=== PATIENT | female | born 1965 | race Caucasian/White ===

== ENCOUNTER 2017-06-01 15:55 | Emergency (ER) | payer MEDICAID, SELFPAY ==
[~2017-06-01] VITALS: Ht 160 cm; Wt 97.7 kg
[~2017-06-01 15:55] MED LIST: /ADVA50050 IN; /QUET10TA OR; ABIL15TA OR; BABY81CH OR; CELE20TA OR; CRES20TA OR; FERR325T OR; FISH300C2 OR; MULTIVIT PO; TRAZ150T OR; VITA50TA12 OR; lutein PO
[2017-06-01] MEDS ORDERED: BUSP5TA PO (16:08)
[2017-06-01] MEDS ORDERED: TRAZ1TAB14 PO (16:08)
[2017-06-01] MEDS ORDERED: RISP4TAB33 PO (16:08)
[2017-06-01] MEDS ORDERED: PRAZ1CAP PO (16:08)
[2017-06-01] MEDS ORDERED: LAMI25TA PO (16:08)
[2017-06-01] MEDS ORDERED: ZOLO100T PO (16:08)
[2017-06-01 16:26] LABS: MEAN CORPUSCULAR HEMOGLOBIN 27.8 pg (27.0-33.0); MEAN CORPUSCULAR HGB CONC 33.5 g/dl (32.0-36.5); MEAN CORPUSCULAR VOLUME 83.1 fl (80.0-96.0); RED CELL DISTRIBUTION WIDTH 13.9 % (11.5-14.5); WHITE BLOOD COUNT 7.4 K/mm3 (4.0-10.0)
[2017-06-01 16:54] LABS: ALBUMIN/GLOBULIN RATIO 1.25 (1.00-1.93); ALKALINE PHOSPHATASE 58 U/L (45-117); ALT/SGPT 22 U/L (12-78); ANION GAP 9 MEQ/L (8-16); AST/SGOT 11 U/L (15-37); BILIRUBIN,DIRECT < 0.1 MG/DL (0.0-0.2); BILIRUBIN,TOTAL 0.2 MG/DL (0.2-1.0); BLOOD UREA NITROGEN 16 MG/DL (7-18); CALCIUM LEVEL 8.9 MG/DL (8.5-10.1); CARBON DIOXIDE LEVEL 26 MEQ/L (21-32); CHLORIDE LEVEL 104 MEQ/L (98-107); CREATININE FOR GFR 0.67 MG/DL (0.55-1.02); GLOMERULAR FILTRATION RATE > 60.0 (>51); GLUCOSE, FASTING 88 MG/DL (70-105); POTASSIUM SERUM 4.1 MEQ/L (3.5-5.1); SODIUM LEVEL 139 MEQ/L (136-145); TOTAL PROTEIN 7.2 GM/DL (6.4-8.2)
[2017-06-01] MEDS ORDERED: risperiDONE 2 MG TAB PO ONE (20:30)
[2017-06-01] MEDS ORDERED: traZODone 50 MG TAB PO ONE (20:30)
[2017-06-01 20:39] LABS: METHADONE URINE NEGATIVE (NEGATIVE)
[2017-06-01 21:47] VITALS: BP 118/63
--- NOTE | 2017-06-02 23:52 | ECGEPIP ---
Stationary ECG Study [facility] Test Date: 2017-06-01 Pat Name: VINNY DUNCAN Department: Room: - Gender: F Pumper Hand: : 1965 Requested By: GRIS Mejía Order Number: [id number] Reading MD: Topher Ortiz Measurements Intervals [place] Rate: 72 P: 41 NV: 136 QRS: 26 QRSD: 86 T: 21 QT: 405 QTc: 443 Interpretive Statements SINUS RHYTHM WITH SINUS ARRHYTHMIA LOW QRS VOLTAGE IN PRECORDIAL LEADS NON-SPECIFIC ST/T ABNORMALITY NO PRIOR TRACING Electronically Signed On 06-02-2017 23:52:35 EDT by Topher Ortiz
== END 2017-06-01 21:50 | disposition short-term general hospital (02) ==
LOC: M ED 15:55
DX: R45.851 Suicidal ideations (principal); I25.2 Old myocardial infarction; E11.9 Type 2 diabetes mellitus without complications; R94.31 Abnormal electrocardiogram [ECG] [EKG]; J42 Unspecified chronic bronchitis; Z79.82 Long term (current) use of aspirin; Z79.899 Other long term (current) drug therapy; Z88.6 Allergy status to analgesic agent; Z88.8 Allergy status to other drugs, medicaments and biological substances
CPT/HCPCS: 80048; 80076; 80175; 80307; 81001; 84443; 85027; 93005; 99284; G0480

== ENCOUNTER 2017-06-17 15:59 | Inpatient (IN) | payer MEDICAID, SELFPAY ==
[~2017-06-17] VITALS: Ht 160 cm; Wt 94.4 kg
[~2017-06-17 15:59] MED LIST changes: +BUSP5TA PO; +LAMI25TA PO; +PRAZ1CAP PO; +RISP4TAB33 PO; +TRAZ1TAB14 PO; +ZOLO100T PO
[2017-06-17 17:19] LABS: MEAN CORPUSCULAR HEMOGLOBIN 27.8 pg (27.0-33.0); MEAN CORPUSCULAR VOLUME 81.8 fl (80.0-96.0); RED CELL DISTRIBUTION WIDTH 13.1 % (11.5-14.5)
[2017-06-17 17:35] LABS: CONTROL LINE HCG INT CTR LINE PRESENT
[2017-06-17 17:54] LABS: ALBUMIN/GLOBULIN RATIO 1.08 (1.00-1.93); ALKALINE PHOSPHATASE 64 U/L (45-117); ALT/SGPT 17 U/L (12-78); ANION GAP 10 MEQ/L (8-16); AST/SGOT 9 U/L (15-37); BILIRUBIN,DIRECT 0.1 MG/DL (0.0-0.2); BILIRUBIN,TOTAL 0.3 MG/DL (0.2-1.0); BLOOD UREA NITROGEN 13 MG/DL (7-18); CARBON DIOXIDE LEVEL 26 MEQ/L (21-32); CHLORIDE LEVEL 105 MEQ/L (98-107); CREATININE FOR GFR 0.74 MG/DL (0.55-1.02); GLOMERULAR FILTRATION RATE > 60.0 (>51); GLUCOSE, FASTING 95 MG/DL (70-105); SODIUM LEVEL 141 MEQ/L (136-145); TOTAL PROTEIN 7.7 GM/DL (6.4-8.2)
[2017-06-17 19:39] LABS: METHADONE URINE NEGATIVE (NEGATIVE)
[2017-06-17] MEDS ORDERED: MOM 30ML SUSPENSION UDC PO PRN (20:30)
[2017-06-17] MEDS ORDERED: traZODone 50 MG TAB PO PRN (20:30)
[2017-06-17] MEDS ORDERED: BUSP10TA PO (20:43)
[2017-06-17] MEDS ORDERED: GABA-279 PO (20:44)
[2017-06-17] MEDS ORDERED: ALBU17IN INH (20:44)
[2017-06-17] MEDS ORDERED: PATIENT COMMENT (20:45)
[2017-06-17 23:10] VITALS: BP 134/71
[2017-06-17] MEDS: MAALOX 30 ML SUSP *UDC PO PRN (23:52)
[2017-06-18] MEDS: traZODone 50 MG TAB PO PRN ×2 (00:38→22:54)
[2017-06-18] MEDS: risperiDONE 2 MG TAB PO SCH ×2 (00:40→21:53)
[2017-06-18] MEDS: busPIRone 10 MG TAB PO SCH ×4 (00:40→21:53)
[2017-06-18] MEDS: GABAPENTIN 100 MG CAP PO SCH ×4 (00:41→21:53)
[2017-06-18] MEDS: SERTRALINE HCL 50 MG TAB PO SCH ×2 (00:42→21:53)
[2017-06-18] MEDS: PRAZOSIN 1 MG CAP PO SCH ×2 (00:42→21:54)
[2017-06-18 06:53] VITALS: BP 134/71
[2017-06-18] MEDS: lamoTRIgine 25 MG TAB PO SCH (08:58)
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
[2017-06-18] MEDS: ASPIRIN 81 MG CHEW TABLET PO SCH (09:30)
[2017-06-18 10:08] LABS: ADD MORPHOLOGY? NO; BASO % 0.6 % (0.0-1.0); EOS # 0.1 K/mm3 (0.0-0.50); EOS % 2.1 % (0.0-3.0); LARGE UNSTAINED CELL # 0.1 K/mm3 (0.0-0.4); LARGE UNSTAINED CELL % 1.4 % (0.0-4.0); LYMPH # 1.5 K/mm3 (1.5-4.5); LYMPH % 29.7 % (24.0-44.0); MEAN CORPUSCULAR HEMOGLOBIN 27.6 pg (27.0-33.0); MEAN CORPUSCULAR HGB CONC 34.2 g/dl (32.0-36.5); MEAN CORPUSCULAR VOLUME 80.6 fl (80.0-96.0); MONO # 0.2 K/mm3 (0.0-0.8); MONO % 4.2 % (0.0-5.0); NEUTROPHILS # 2.9 K/mm3 (1.8-7.7); NEUTROPHILS % 62.1 % (36.0-66.0); PLATELET COUNT, AUTOMATED 350 k/mm3 (150-450); RED CELL DISTRIBUTION WIDTH 13.5 % (11.5-14.5); WHITE BLOOD COUNT 4.7 K/mm3 (4.0-10.0)
[2017-06-18 10:35] LABS: ALBUMIN 3.9 GM/DL (3.2-5.2); ALBUMIN/GLOBULIN RATIO 1.11 (1.00-1.93); ALKALINE PHOSPHATASE 68 U/L (45-117); ALT/SGPT 18 U/L (12-78); ANION GAP 11 MEQ/L (8-16); AST/SGOT 6 U/L (15-37); BILIRUBIN,TOTAL 0.4 MG/DL (0.2-1.0); BLOOD UREA NITROGEN 12 MG/DL (7-18); CALCIUM LEVEL 9.1 MG/DL (8.5-10.1); CARBON DIOXIDE LEVEL 24 MEQ/L (21-32); CHLORIDE LEVEL 105 MEQ/L (98-107); CREATININE FOR GFR 0.85 MG/DL (0.55-1.02); GLOMERULAR FILTRATION RATE > 60.0 (>51); GLUCOSE, FASTING 165 MG/DL (70-105); POTASSIUM SERUM 3.9 MEQ/L (3.5-5.1); SODIUM LEVEL 140 MEQ/L (136-145); TOTAL PROTEIN 7.4 GM/DL (6.4-8.2)
--- NOTE | 2017-06-18 10:55 | REP ---
CT abdomen and pelvis without IV or oral contrast: Renal stone protocol. History: Abdominal pain. No comparison imaging. Findings: Preliminary digital child care assistant radiograph shows an unremarkable bowel gas pattern. The lung bases are essentially clear. There is minimal linear fibrosis in the right middle lobe. The liver and the spleen are normal in size and homogeneous in texture. No abnormalities noted in the gallbladder. No adrenal lesion is seen on either side. The pancreas is unremarkable. There is a cyst projecting inferiorly from the lower pole of the left kidney measuring 2.5 cm in greatest diameter. Kidneys are otherwise morphologically intact. No retroperitoneal mass or adenopathy is seen. Small and large intestinal bowel loops are unremarkable. The urinary bladder is intact. Uterus is enlarged. There is a fibroid in its posterior myometrium approximately 6.3 cm in anteroposterior by 7.4 cm medial to lateral by 6.7 cm cranial to caudal. The bladder is displaced anteriorly by the enlarged fibroid uterus. No ovarian abnormality is seen on either side. A normal appendix is seen. Impression: 7 cm uterine fibroid. Small cyst lower pole left kidney. Otherwise unremarkable CT abdomen and pelvis. Signed by Kal Hill MD 06/18/2017 12:15 P
[2017-06-18] MEDS: ALBUTEROL 90 MCG/ACT 8GM HFA INHALER INH PRN (11:24)
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
[2017-06-18 18:07] VITALS: BP 108/54
[2017-06-19 07:04] LABS: CHOLESTEROL LEVEL 324 MG/DL (<200); TRIGLYCERIDES LEVEL 268 MG/DL (<150)
[2017-06-19] MEDS: busPIRone 10 MG TAB PO SCH ×3 (09:14→21:53)
[2017-06-19] MEDS: lamoTRIgine 25 MG TAB PO SCH (09:14)
[2017-06-19] MEDS: ASPIRIN 81 MG CHEW TABLET PO SCH (09:14)
[2017-06-19] MEDS: GABAPENTIN 100 MG CAP PO SCH ×3 (09:14→21:53)
[2017-06-19] MEDS: ATORVASTATIN 20 MG TAB PO SCH (12:14)
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
[2017-06-19 18:00] VITALS: BP 139/65
[2017-06-19] MEDS: ALBUTEROL 90 MCG/ACT 8GM HFA INHALER INH PRN (19:55)
[2017-06-19] MEDS: ACETAMINOPHEN TAB 650MG DOSE (2X325MG) PO PRN (19:57)
[2017-06-19] MEDS: risperiDONE 2 MG TAB PO SCH (21:52)
[2017-06-19] MEDS: SERTRALINE HCL 50 MG TAB PO SCH (21:53)
[2017-06-19] MEDS: PRAZOSIN 1 MG CAP PO SCH (21:53)
[2017-06-19] MEDS: traZODone 50 MG TAB PO PRN (21:54)
[2017-06-20 06:38] VITALS: BP 131/55
[2017-06-20] MEDS: ASPIRIN 81 MG CHEW TABLET PO SCH (08:29)
[2017-06-20] MEDS: GABAPENTIN 100 MG CAP PO SCH ×3 (08:29→21:05)
[2017-06-20] MEDS: lamoTRIgine 25 MG TAB PO SCH (08:29)
[2017-06-20] MEDS: ATORVASTATIN 20 MG TAB PO SCH (08:29)
[2017-06-20] MEDS: busPIRone 10 MG TAB PO SCH (09:12)
[2017-06-20] MEDS: ALBUTEROL 90 MCG/ACT 8GM HFA INHALER INH PRN (12:04)
[2017-06-20] MEDS: MAALOX 30 ML SUSP *UDC PO PRN (12:36)
[2017-06-20 13:40] LABS: MEAN CORPUSCULAR HGB CONC 34.3 g/dl (32.0-36.5); MEAN CORPUSCULAR VOLUME 81.6 fl (80.0-96.0); RED CELL DISTRIBUTION WIDTH 13.3 % (11.5-14.5)
[2017-06-20 14:05] LABS: ALBUMIN 3.5 GM/DL (3.2-5.2); ALBUMIN/GLOBULIN RATIO 1.09 (1.00-1.93); ALKALINE PHOSPHATASE 67 U/L (45-117); ALT/SGPT 20 U/L (12-78); ANION GAP 7 MEQ/L (8-16); AST/SGOT 9 U/L (15-37); BILIRUBIN,TOTAL 0.2 MG/DL (0.2-1.0); BLOOD UREA NITROGEN 16 MG/DL (7-18); CALCIUM LEVEL 8.5 MG/DL (8.5-10.1); CARBON DIOXIDE LEVEL 29 MEQ/L (21-32); CHLORIDE LEVEL 104 MEQ/L (98-107); CREATININE FOR GFR 0.67 MG/DL (0.55-1.02); GLOMERULAR FILTRATION RATE > 60.0 (>51); GLUCOSE, FASTING 129 MG/DL (70-105); POTASSIUM SERUM 4.2 MEQ/L (3.5-5.1); SODIUM LEVEL 140 MEQ/L (136-145); TOTAL PROTEIN 6.7 GM/DL (6.4-8.2)
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
[2017-06-20] MEDS: ACETAMINOPHEN TAB 650MG DOSE (2X325MG) PO PRN (14:35)
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
[2017-06-20] MEDS: busPIRone 5 MG TAB PO SCH ×2 (16:00→21:05)
[2017-06-20 18:00] VITALS: BP 157/61
--- NOTE | 2017-06-20 20:58 | ECGEPIP ---
Stationary ECG Study [facility] Test Date: 2017-06-20 Pat Name: VINNY DUNCAN Department: Room: [place] [address] Gender: F [employer] Operator: BOY : 1965 Requested By: Keysha Good Order Number: [id number] Reading MD: Matthew Mccollum Measurements Intervals [place] Rate: 70 P: 48 MS: 132 QRS: 16 QRSD: 81 T: 13 QT: 398 QTc: 431 Interpretive Statements SINUS RHYTHM WITH SINUS ARRHYTHMIA Poor R-wave progression. Nonspecific ST-T abnormalities. Electronically Signed On 06-20-2017 20:58:32 EDT by Matthew Mccollum
[2017-06-20] MEDS: SERTRALINE HCL 50 MG TAB PO SCH (21:05)
[2017-06-20] MEDS: risperiDONE 2 MG TAB PO SCH (21:05)
[2017-06-20] MEDS: traZODone 50 MG TAB PO PRN (21:06)
[2017-06-20] MEDS: PRAZOSIN 1 MG CAP PO SCH (21:06)
[2017-06-21 06:24] VITALS: BP 118/77
[2017-06-21] MEDS: GABAPENTIN 100 MG CAP PO SCH ×3 (08:16→22:28)
[2017-06-21] MEDS: busPIRone 5 MG TAB PO SCH ×3 (08:16→22:30)
[2017-06-21] MEDS: ASPIRIN 81 MG CHEW TABLET PO SCH (08:16)
[2017-06-21] MEDS: ATORVASTATIN 20 MG TAB PO SCH (08:16)
[2017-06-21] MEDS: lamoTRIgine 25 MG TAB PO SCH (08:16)
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
[2017-06-21 18:00] VITALS: BP 108/54
[2017-06-21] MEDS: ACETAMINOPHEN TAB 650MG DOSE (2X325MG) PO PRN (22:27)
[2017-06-21] MEDS: risperiDONE 2 MG TAB PO SCH (22:27)
[2017-06-21] MEDS: traZODone 50 MG TAB PO PRN (22:27)
[2017-06-21] MEDS: SERTRALINE HCL 50 MG TAB PO SCH (22:27)
[2017-06-21] MEDS: PRAZOSIN 1 MG CAP PO SCH (22:28)
[2017-06-22] MEDS: GABAPENTIN 100 MG CAP PO SCH ×3 (09:22→22:20)
[2017-06-22] MEDS: busPIRone 5 MG TAB PO SCH ×3 (09:22→22:20)
[2017-06-22] MEDS: lamoTRIgine 25 MG TAB PO SCH (09:22)
[2017-06-22] MEDS: ATORVASTATIN 20 MG TAB PO SCH (09:22)
[2017-06-22] MEDS: ASPIRIN 81 MG CHEW TABLET PO SCH (09:22)
[2017-06-22] MEDS: MAALOX 30 ML SUSP *UDC PO PRN (13:09)
[2017-06-22] MEDS: ALBUTEROL 90 MCG/ACT 8GM HFA INHALER INH PRN (13:10)
[2017-06-22 18:00] VITALS: BP 117/60
[2017-06-22] MEDS: risperiDONE 2 MG TAB PO SCH (22:19)
[2017-06-22] MEDS: SERTRALINE HCL 50 MG TAB PO SCH (22:20)
[2017-06-22] MEDS: PRAZOSIN 1 MG CAP PO SCH (22:20)
[2017-06-22] MEDS: traZODone 50 MG TAB PO PRN (22:20)
[2017-06-22] MEDS: ACETAMINOPHEN TAB 650MG DOSE (2X325MG) PO PRN (22:21)
[2017-06-23 06:25] VITALS: BP 99/54
[2017-06-23] MEDS: ASPIRIN 81 MG CHEW TABLET PO SCH (08:57)
[2017-06-23] MEDS: busPIRone 5 MG TAB PO SCH ×3 (08:57→22:15)
[2017-06-23] MEDS: GABAPENTIN 100 MG CAP PO SCH ×3 (08:57→22:15)
[2017-06-23] MEDS: lamoTRIgine 25 MG TAB PO SCH (08:57)
[2017-06-23] MEDS: ATORVASTATIN 20 MG TAB PO SCH (08:57)
[2017-06-23 18:00] VITALS: BP 135/73
[2017-06-23] MEDS: risperiDONE 2 MG TAB PO SCH (22:15)
[2017-06-23] MEDS: PRAZOSIN 1 MG CAP PO SCH (22:16)
[2017-06-23] MEDS: traZODone 50 MG TAB PO PRN (22:16)
[2017-06-23] MEDS: SERTRALINE HCL 50 MG TAB PO SCH (22:16)
[2017-06-24 06:55] VITALS: BP 143/55
[2017-06-24] MEDS: lamoTRIgine 25 MG TAB PO SCH (08:09)
[2017-06-24] MEDS: busPIRone 5 MG TAB PO SCH ×3 (08:10→21:38)
[2017-06-24] MEDS: ASPIRIN 81 MG CHEW TABLET PO SCH (08:10)
[2017-06-24] MEDS: GABAPENTIN 100 MG CAP PO SCH ×3 (08:10→21:38)
[2017-06-24] MEDS: ATORVASTATIN 20 MG TAB PO SCH (08:10)
[2017-06-24] MEDS: ALBUTEROL 90 MCG/ACT 8GM HFA INHALER INH PRN ×2 (10:53→19:02)
[2017-06-24 18:00] VITALS: BP 125/74
[2017-06-24] MEDS ORDERED: PANTOPRAZOLE 20 MG TAB PO ONE (18:30)
[2017-06-24] MEDS: ACETAMINOPHEN TAB 650MG DOSE (2X325MG) PO PRN (19:01)
[2017-06-24] MEDS: traZODone 50 MG TAB PO PRN (21:34)
[2017-06-24] MEDS: PRAZOSIN 1 MG CAP PO SCH (21:36)
[2017-06-24] MEDS: SERTRALINE HCL 50 MG TAB PO SCH (21:37)
[2017-06-24] MEDS: risperiDONE 2 MG TAB PO SCH (21:38)
[2017-06-25 06:16] VITALS: BP 119/70
[2017-06-25] MEDS: GABAPENTIN 100 MG CAP PO SCH ×3 (09:23→21:13)
[2017-06-25] MEDS: ASPIRIN 81 MG CHEW TABLET PO SCH (09:23)
[2017-06-25] MEDS: busPIRone 5 MG TAB PO SCH ×3 (09:23→21:12)
[2017-06-25] MEDS: ATORVASTATIN 20 MG TAB PO SCH (09:23)
[2017-06-25] MEDS: lamoTRIgine 25 MG TAB PO SCH (09:23)
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
[2017-06-25] MEDS: risperiDONE 1 MG TAB PO SCH ×2 (17:35→21:12)
[2017-06-25 18:00] VITALS: BP 128/72
[2017-06-25] MEDS ORDERED: risperiDONE 1 MG TAB PO SCH (21:00)
[2017-06-25] MEDS: traZODone 50 MG TAB PO PRN (21:12)
[2017-06-25] MEDS: SERTRALINE 100 MG TAB PO SCH (21:13)
[2017-06-25] MEDS: ACETAMINOPHEN TAB 650MG DOSE (2X325MG) PO PRN (21:13)
[2017-06-25] MEDS: PRAZOSIN 1 MG CAP PO SCH (21:14)
--- NOTE | 2017-06-25 21:27 | ECGEPIP ---
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
[2017-06-26 06:47] VITALS: BP 129/63
[2017-06-26] MEDS: ASPIRIN 81 MG CHEW TABLET PO SCH (08:43)
[2017-06-26] MEDS: risperiDONE 1 MG TAB PO SCH ×3 (08:43→21:38)
[2017-06-26] MEDS: GABAPENTIN 100 MG CAP PO SCH ×3 (08:44→21:37)
[2017-06-26] MEDS: lamoTRIgine 25 MG TAB PO SCH (08:44)
[2017-06-26] MEDS: ATORVASTATIN 20 MG TAB PO SCH (08:44)
[2017-06-26] MEDS: busPIRone 5 MG TAB PO SCH ×3 (08:44→21:38)
[2017-06-26] MEDS: ACETAMINOPHEN TAB 650MG DOSE (2X325MG) PO PRN ×2 (16:22→21:38)
[2017-06-26 18:00] VITALS: BP 119/59
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
[2017-06-26] MEDS: ALBUTEROL 90 MCG/ACT 8GM HFA INHALER INH PRN (19:11)
[2017-06-26 21:38] VITALS: BP 142/88
[2017-06-26] MEDS: SERTRALINE 100 MG TAB PO SCH (21:38)
[2017-06-26] MEDS: PRAZOSIN 1 MG CAP PO SCH (21:38)
[2017-06-26] MEDS: traZODone 50 MG TAB PO PRN (21:38)
[2017-06-27 06:50] VITALS: BP 101/54
[2017-06-27] MEDS: risperiDONE 1 MG TAB PO SCH (08:42)
[2017-06-27] MEDS: ASPIRIN 81 MG CHEW TABLET PO SCH (08:42)
[2017-06-27] MEDS: busPIRone 5 MG TAB PO SCH (08:42)
[2017-06-27] MEDS: lamoTRIgine 25 MG TAB PO SCH (08:42)
[2017-06-27] MEDS: ATORVASTATIN 20 MG TAB PO SCH (08:42)
[2017-06-27] MEDS: GABAPENTIN 100 MG CAP PO SCH (08:42)
[2017-06-27] MEDS ORDERED: METF10004 PO (10:09)
[2017-06-27] MEDS ORDERED: ATOR1TAB21 PO (10:09)
[2017-06-27] MEDS ORDERED: BUSP5TA PO (10:09)
[2017-06-27] MEDS ORDERED: MINI1CAP PO (10:09)
[2017-06-27] MEDS ORDERED: RISP1TAB42 PO (10:09)
[2017-06-27] MEDS: ALBUTEROL 90 MCG/ACT 8GM HFA INHALER INH PRN (10:25)
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
== END 2017-06-27 12:10 | disposition home or self-care (01) | DRG 751 ==
LOC: M ED 15:59 → M ED INP 20:17 → M PSY 23:08
PROVIDERS: ADMIT Psychiatry & Neurology Psychiatry; ATTEND Psychiatry & Neurology Psychiatry
DX: F32.2 Major depressive disorder, single episode, severe without psychotic features (principal); F22 Delusional disorders; Z76.5 Malingerer [conscious simulation]; R45.851 Suicidal ideations; Z79.899 Other long term (current) drug therapy; Z88.8 Allergy status to other drugs, medicaments and biological substances; J44.9 Chronic obstructive pulmonary disease, unspecified; E11.9 Type 2 diabetes mellitus without complications; E78.5 Hyperlipidemia, unspecified; I25.10 Atherosclerotic heart disease of native coronary artery without angina pectoris; I25.2 Old myocardial infarction; E66.9 Obesity, unspecified; Z68.36 Body mass index [BMI] 36.0-36.9, adult

== ENCOUNTER 2017-07-25 12:41 | Emergency (ER) | payer MEDICAID ==
[~2017-07-25] VITALS: Ht 160 cm; Wt 95.5 kg
[~2017-07-25 12:41] MED LIST changes: +ALBU17IN INH; +ATOR1TAB21 PO; +BUSP10TA PO; +GABA-279 PO; +METF10004 PO; +MINI1CAP PO; +PATIENT COMMENT; +RISP1TAB42 PO
--- NOTE | 2017-07-25 13:27 | REP ---
Portable chest, 01:05 p.m., single AP view, patient sitting: Comparison is 07/22/2017. The lung pacheco are clear. The cardiac size is normal. The singh, mediastinum, and bony thorax are unremarkable. Impression: Negative portable chest. There is no interval change. Signed by Lamont Carpenter MD 07/25/2017 01:19 P
[2017-07-25] MEDS ORDERED: ASPIRIN 81 MG CHEW TABLET PO ONE (13:30)
[2017-07-25 13:49] LABS: BASO # 0.1 10^3/uL (0.0-0.2); BASO % 0.9 % (0.0-1.0); EOS # 0.2 10^3/uL (0.0-0.50); EOS % 3.8 % (0.0-3.0); IMMATURE GRANULOCYTE % 0.2 % (0-0); LYMPH # 1.7 10^3/uL (1.5-4.5); LYMPH % 29.9 % (24.0-44.0); MEAN CORPUSCULAR HGB CONC 33.5 g/dl (32.0-36.5); MEAN CORPUSCULAR VOLUME 80.6 fl (80.0-96.0); MONO # 0.4 10^3/uL (0.0-0.8); MONO % 6.7 % (0.0-5.0); NEUTROPHILS # 3.3 10^3/uL (1.8-7.7); NEUTROPHILS % 58.5 % (36.0-66.0); PLATELET COUNT, AUTOMATED 297 10^3/uL (150-450); RED CELL DISTRIBUTION WIDTH 13.2 % (11.5-14.5); WHITE BLOOD COUNT 5.6 10^3/uL (4.0-10.0)
[2017-07-25 14:22] LABS: ALBUMIN 3.5 GM/DL (3.2-5.2); ALBUMIN/GLOBULIN RATIO 1.03 (1.00-1.93); ALKALINE PHOSPHATASE 69 U/L (45-117); ALT/SGPT 18 U/L (12-78); ANION GAP 5 MEQ/L (8-16); AST/SGOT 7 U/L (15-37); BILIRUBIN,DIRECT < 0.1 MG/DL (0.0-0.2); BILIRUBIN,TOTAL 0.2 MG/DL (0.2-1.0); BLOOD UREA NITROGEN 13 MG/DL (7-18); CALCIUM LEVEL 8.4 MG/DL (8.5-10.1); CARBON DIOXIDE LEVEL 29 MEQ/L (21-32); CHLORIDE LEVEL 107 MEQ/L (98-107); CREATININE FOR GFR 0.67 MG/DL (0.55-1.02); GLOMERULAR FILTRATION RATE > 60.0 (>51); GLUCOSE, FASTING 87 MG/DL (70-105); POTASSIUM SERUM 3.9 MEQ/L (3.5-5.1); SODIUM LEVEL 141 MEQ/L (136-145); TOTAL PROTEIN 6.9 GM/DL (6.4-8.2)
[2017-07-25 15:15] VITALS: BP 122/55
--- NOTE | 2017-07-27 05:25 | ECGEPIP ---
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
== END 2017-07-25 15:19 | disposition home or self-care (01) ==
LOC: M ED 12:41
DX: R07.9 Chest pain, unspecified (principal); E11.9 Type 2 diabetes mellitus without complications; I10 Essential (primary) hypertension; E78.5 Hyperlipidemia, unspecified; F41.9 Anxiety disorder, unspecified; G31.84 Mild cognitive impairment of uncertain or unknown etiology; F25.9 Schizoaffective disorder, unspecified; Z95.2 Presence of prosthetic heart valve; Z82.49 Family history of ischemic heart disease and other diseases of the circulatory system; Z79.84 Long term (current) use of oral hypoglycemic drugs; Z79.899 Other long term (current) drug therapy; Z88.6 Allergy status to analgesic agent; Z88.8 Allergy status to other drugs, medicaments and biological substances

== ENCOUNTER 2018-05-12 10:46 | Inpatient (IN) | payer OTHER, MEDICAID, SELFPAY ==
[2018-05-12 12:14] LABS: HEMATOCRIT 39.3 % (36.0-47.0); HEMOGLOBIN 12.9 g/dl (12.0-15.5); MEAN CORPUSCULAR HEMOGLOBIN 26.2 pg (27.0-33.0); MEAN CORPUSCULAR HGB CONC 32.8 g/dl (32.0-36.5); MEAN CORPUSCULAR VOLUME 79.7 fl (80.0-96.0); PLATELET COUNT, AUTOMATED 423 10^3/uL (150-450); RED BLOOD COUNT 4.93 10^6/uL (4.00-5.40); RED CELL DISTRIBUTION WIDTH 14.9 % (11.5-14.5); WHITE BLOOD COUNT 8.5 10^3/uL (4.0-10.0)
[2018-05-12 12:25] LABS: CONTROL LINE HCG INT CTR LINE PRESENT; HCG, SERUM QUALITATIVE NEGATIVE (NEGATIVE)
[2018-05-12 12:37] LABS: ALBUMIN/GLOBULIN RATIO 0.93 (1.00-1.93); ALKALINE PHOSPHATASE 104 U/L (45-117); ALT/SGPT 21 U/L (12-78); ANION GAP 10 MEQ/L (8-16); AST/SGOT 9 U/L (7-37); BILIRUBIN,DIRECT 0.1 MG/DL (0.0-0.2); BILIRUBIN,TOTAL 0.5 MG/DL (0.2-1.0); BLOOD UREA NITROGEN 14 MG/DL (7-18); CALCIUM LEVEL 8.9 MG/DL (8.5-10.1); CARBON DIOXIDE LEVEL 23 MEQ/L (21-32); CHLORIDE LEVEL 107 MEQ/L (98-107); CREATININE FOR GFR 0.63 MG/DL (0.55-1.30); ETHYL ALCOHOL (ETHANOL) < 0.003 % (0.000-0.010); GLOMERULAR FILTRATION RATE > 60.0 (>51); GLUCOSE, FASTING 132 MG/DL (70-100); POTASSIUM SERUM 3.8 MEQ/L (3.5-5.1); SALICYLATE LEVEL < 1.7 MG/DL (5.0-30.0); SODIUM LEVEL 140 MEQ/L (136-145); TOTAL PROTEIN 8.3 GM/DL (6.4-8.2)
[2018-05-12 12:48] LABS: ACETAMINOPHEN LEVEL < 2.0 UG/ML (10.0-30.0)
[2018-05-12 12:53] LABS: AMPHETAMINES LEVEL URINE NEGATIVE (NEGATIVE); BARBITURATES URINE NEGATIVE (NEGATIVE); BENZODIAZEPINES URINE NEGATIVE (NEGATIVE); CANNABINOIDS URINE NEGATIVE (NEGATIVE); COCAINE METABOLITE URINE NEGATIVE (NEGATIVE); METHADONE URINE NEGATIVE (NEGATIVE); OPIATES URINE NEGATIVE (NEGATIVE); PHENCYCLIDINE URINE NEGATIVE (NEGATIVE)
[2018-05-12] MEDS: ONDANSETRON 4 MG ORAL DISINTEGRATING TAB (Q0162 PER 1MG) PO (13:48)
[2018-05-12] MEDS ORDERED: ACETAMINOPHEN TAB 650MG DOSE (2X325MG) PO (17:30)
[2018-05-12] MEDS ORDERED: ALBUTEROL 90 MCG/ACT 8GM HFA INHALER INH (17:30)
[2018-05-12] MEDS ORDERED: MAALOX 30 ML SUSP *UDC PO (17:30)
[2018-05-12] MEDS ORDERED: MOM 30ML SUSPENSION UDC PO (17:30)
[2018-05-12] MEDS: QUEtiapine FUMARATE 200 MG TAB PO (20:06)
[2018-05-13] MEDS: lamoTRIgine 25 MG TAB PO (08:57)
[2018-05-13] MEDS: DULoxetine 30 MG CAP (CYMBALTA) PO (08:57)
[2018-05-13] MEDS: PANTOPRAZOLE 40MG TAB (PROTONIX) PO (11:18)
[2018-05-13] MEDS: ASPIRIN 81 MG ENTERIC TAB PO (11:18)
[2018-05-13] MEDS: GABAPENTIN 300 MG CAP PO ×2 (16:03→22:15)
[2018-05-13 17:16] LABS: BEDSIDE GLUCOSE 131 MG/DL (70-105)
[2018-05-13] MEDS: metFORMIN 850 MG TAB PO (17:17)
[2018-05-13] MEDS: QUEtiapine FUMARATE 200 MG TAB PO (22:14)
[2018-05-13] MEDS: ATORVASTATIN 20 MG TAB PO (22:15)
[2018-05-14 06:29] LABS: BEDSIDE GLUCOSE 106 MG/DL (70-105)
[2018-05-14] MEDS: metFORMIN 850 MG TAB PO ×2 (07:44→17:05)
[2018-05-14] MEDS: DULoxetine 30 MG CAP (CYMBALTA) PO (09:40)
[2018-05-14] MEDS: lamoTRIgine 25 MG TAB PO (09:40)
[2018-05-14] MEDS: PANTOPRAZOLE 40MG TAB (PROTONIX) PO (09:40)
[2018-05-14] MEDS: ASPIRIN 81 MG ENTERIC TAB PO (09:40)
[2018-05-14] MEDS: GABAPENTIN 300 MG CAP PO ×3 (09:40→22:23)
[2018-05-14 16:43] LABS: BEDSIDE GLUCOSE 99 MG/DL (70-105)
[2018-05-14 20:02] LABS: BEDSIDE GLUCOSE 160 MG/DL (70-105)
[2018-05-14] MEDS: ATORVASTATIN 20 MG TAB PO (22:23)
[2018-05-14] MEDS: QUEtiapine FUMARATE 200 MG TAB PO (22:24)
[2018-05-14] MEDS ORDERED: PILL CRUSHER/CUTTER 1 EACH XX (22:30)
[2018-05-15] MEDS: traZODone 50 MG TAB PO (01:05)
[2018-05-15 05:58] LABS: BEDSIDE GLUCOSE 108 MG/DL (70-105)
[2018-05-15] MEDS: metFORMIN 850 MG TAB PO ×2 (08:00→13:16)
[2018-05-15] MEDS: ASPIRIN 81 MG ENTERIC TAB PO ×2 (09:00→13:16)
[2018-05-15] MEDS: PANTOPRAZOLE 40MG TAB (PROTONIX) PO ×2 (09:00→13:16)
[2018-05-15] MEDS: lamoTRIgine 25 MG TAB PO ×2 (09:00→13:16)
[2018-05-15] MEDS: GABAPENTIN 300 MG CAP PO ×2 (09:00→13:16)
[2018-05-15] MEDS: DULoxetine 30 MG CAP (CYMBALTA) PO ×2 (09:00→13:16)
== END 2018-05-15 13:45 | disposition home or self-care (01) | DRG 755 ==
LOC: M ED 10:46 → M ED INP 13:58 → M PSY 16:25
DX: F43.10 Post-traumatic stress disorder, unspecified (principal); J44.9 Chronic obstructive pulmonary disease, unspecified; G40.909 Epilepsy, unspecified, not intractable, without status epilepticus; Z79.899 Other long term (current) drug therapy; Z88.8 Allergy status to other drugs, medicaments and biological substances; Z88.6 Allergy status to analgesic agent; G47.00 Insomnia, unspecified; F41.9 Anxiety disorder, unspecified; E66.9 Obesity, unspecified; I25.10 Atherosclerotic heart disease of native coronary artery without angina pectoris; I25.2 Old myocardial infarction; E11.9 Type 2 diabetes mellitus without complications; E78.5 Hyperlipidemia, unspecified; Z68.39 Body mass index [BMI] 39.0-39.9, adult; Z91.410 Personal history of adult physical and sexual abuse; Z85.41 Personal history of malignant neoplasm of cervix uteri; Z95.2 Presence of prosthetic heart valve; K21.9 Gastro-esophageal reflux disease without esophagitis

== ENCOUNTER 2018-05-23 13:39 | Inpatient (IN) | payer OTHER ==
[2018-05-23 15:34] LABS: HEMATOCRIT 35.9 % (36.0-47.0); HEMOGLOBIN 11.9 g/dl (12.0-15.5); MEAN CORPUSCULAR HEMOGLOBIN 26.4 pg (27.0-33.0); MEAN CORPUSCULAR HGB CONC 33.1 g/dl (32.0-36.5); MEAN CORPUSCULAR VOLUME 79.6 fl (80.0-96.0); PLATELET COUNT, AUTOMATED 326 10^3/uL (150-450); RED BLOOD COUNT 4.51 10^6/uL (4.00-5.40); RED CELL DISTRIBUTION WIDTH 14.7 % (11.5-14.5); WHITE BLOOD COUNT 7.4 10^3/uL (4.0-10.0)
[2018-05-23 16:05] LABS: ALBUMIN 3.6 GM/DL (3.2-5.2); ALBUMIN/GLOBULIN RATIO 0.88 (1.00-1.93); ALKALINE PHOSPHATASE 94 U/L (45-117); ALT/SGPT 20 U/L (12-78); ANION GAP 7 MEQ/L (8-16); AST/SGOT 11 U/L (7-37); BILIRUBIN,DIRECT < 0.1 MG/DL (0.0-0.2); BILIRUBIN,TOTAL 0.3 MG/DL (0.2-1.0); BLOOD UREA NITROGEN 7 MG/DL (7-18); CALCIUM LEVEL 8.8 MG/DL (8.5-10.1); CARBON DIOXIDE LEVEL 27 MEQ/L (21-32); CHLORIDE LEVEL 107 MEQ/L (98-107); ETHYL ALCOHOL (ETHANOL) < 0.003 % (0.000-0.010); GLOMERULAR FILTRATION RATE > 60.0 (>51); GLUCOSE, FASTING 83 MG/DL (70-100); POTASSIUM SERUM 3.5 MEQ/L (3.5-5.1); SALICYLATE LEVEL < 1.7 MG/DL (5.0-30.0); SODIUM LEVEL 141 MEQ/L (136-145); TOTAL PROTEIN 7.7 GM/DL (6.4-8.2)
[2018-05-23 16:06] LABS: ACETAMINOPHEN LEVEL < 2.0 UG/ML (10.0-30.0)
[2018-05-23 16:28] LABS: AMPHETAMINES LEVEL URINE NEGATIVE (NEGATIVE); BARBITURATES URINE NEGATIVE (NEGATIVE); BENZODIAZEPINES URINE NEGATIVE (NEGATIVE); CANNABINOIDS URINE NEGATIVE (NEGATIVE); COCAINE METABOLITE URINE NEGATIVE (NEGATIVE); METHADONE URINE NEGATIVE (NEGATIVE); OPIATES URINE NEGATIVE (NEGATIVE); PHENCYCLIDINE URINE NEGATIVE (NEGATIVE)
[2018-05-23] MEDS ORDERED: MAALOX 30 ML SUSP *UDC PO (19:00)
[2018-05-23 20:38] LABS: CK-MB VALUE MASS < 1.0 NG/ML (<3.6); CPK CREATINE PHOSPHOKINASE 79 U/L (26-192); MB/CK RELATIVE INDEX 1.26 (< OR =4); TROPONIN I < 0.02 NG/ML (< 0.10)
[2018-05-23] MEDS: **NOTE PATIENT COMMENT** MISC XX (21:00)
[2018-05-23] MEDS: traZODone 50 MG TAB PO (21:26)
[2018-05-23] MEDS: ATORVASTATIN 20 MG TAB PO (21:26)
[2018-05-23] MEDS: GABAPENTIN 300 MG CAP PO (21:26)
[2018-05-23] MEDS: QUEtiapine FUMARATE 200 MG TAB PO (21:27)
[2018-05-23] MEDS ORDERED: PILL CRUSHER/CUTTER 1 EACH XX (21:45)
[2018-05-24 07:34] LABS: CPK CREATINE PHOSPHOKINASE 54 U/L (26-192); TROPONIN I < 0.02 NG/ML (< 0.10)
[2018-05-24 07:35] LABS: CK-MB VALUE MASS < 1.0 NG/ML (<3.6); MB/CK RELATIVE INDEX 1.85 (< OR =4)
[2018-05-24] MEDS: metFORMIN 850 MG TAB PO ×2 (08:31→17:44)
[2018-05-24] MEDS: lamoTRIgine 25 MG TAB PO (08:31)
[2018-05-24] MEDS: GABAPENTIN 300 MG CAP PO ×3 (08:31→21:52)
[2018-05-24] MEDS: DULoxetine 30 MG CAP (CYMBALTA) PO (08:32)
[2018-05-24] MEDS: PANTOPRAZOLE 40MG TAB (PROTONIX) PO (08:32)
[2018-05-24] MEDS: **NOTE PATIENT COMMENT** MISC XX (21:00)
[2018-05-24] MEDS: QUEtiapine FUMARATE 200 MG TAB PO (21:46)
[2018-05-24] MEDS: ALBUTEROL 90 MCG/ACT 8GM HFA INHALER INH (21:51)
[2018-05-24] MEDS: ATORVASTATIN 20 MG TAB PO (21:52)
[2018-05-24] MEDS: traZODone 50 MG TAB PO (21:52)
[2018-05-24] MEDS: ACETAMINOPHEN TAB 650MG DOSE (2X325MG) PO (21:53)
[2018-05-24] MEDS: LIDOCAINE 5% (LIDODERM) PATCH TD (21:54)
[2018-05-25 06:26] LABS: BEDSIDE GLUCOSE 124 MG/DL (70-105)
[2018-05-25] MEDS: GABAPENTIN 300 MG CAP PO ×3 (08:32→21:24)
[2018-05-25] MEDS: lamoTRIgine 25 MG TAB PO (08:32)
[2018-05-25] MEDS: DULoxetine 30 MG CAP (CYMBALTA) PO (08:33)
[2018-05-25] MEDS: metFORMIN 850 MG TAB PO ×2 (08:33→17:18)
[2018-05-25] MEDS: PANTOPRAZOLE 40MG TAB (PROTONIX) PO (08:33)
[2018-05-25 16:26] LABS: BEDSIDE GLUCOSE 100 MG/DL (70-105)
[2018-05-25] MEDS: **NOTE PATIENT COMMENT** MISC XX (21:00)
[2018-05-25] MEDS: ATORVASTATIN 20 MG TAB PO (21:24)
[2018-05-25] MEDS: traZODone 50 MG TAB PO (21:25)
[2018-05-25] MEDS: QUEtiapine FUMARATE 200 MG TAB PO (21:25)
[2018-05-26 06:40] LABS: BEDSIDE GLUCOSE 123 MG/DL (70-105)
[2018-05-26] MEDS: metFORMIN 850 MG TAB PO ×2 (09:04→17:08)
[2018-05-26] MEDS: lamoTRIgine 25 MG TAB PO (09:05)
[2018-05-26] MEDS: GABAPENTIN 300 MG CAP PO ×3 (09:05→21:49)
[2018-05-26] MEDS: DULoxetine 30 MG CAP (CYMBALTA) PO (09:05)
[2018-05-26] MEDS: PANTOPRAZOLE 40MG TAB (PROTONIX) PO (09:06)
[2018-05-26 09:23] LABS: FERRITIN 6 NG/ML (8-252); IRON (FE) 22 UG/DL (50-170); PERCENT SATURATION 8.6 % (13.2-45.0); TOTAL IRON BINDING CAPACITY 256 UG/DL (250-450)
[2018-05-26] MEDS: LIDOCAINE 5% (LIDODERM) PATCH TD (10:30)
[2018-05-26] MEDS: ACETAMINOPHEN TAB 650MG DOSE (2X325MG) PO (10:32)
[2018-05-26 17:06] LABS: BEDSIDE GLUCOSE 122 MG/DL (70-105)
[2018-05-26] MEDS: **NOTE PATIENT COMMENT** MISC XX (21:00)
[2018-05-26] MEDS: traZODone 50 MG TAB PO (21:48)
[2018-05-26] MEDS: oxyBUTYnin *DITROPAN XL* 5 MG TABCR PO (21:49)
[2018-05-26] MEDS: QUEtiapine FUMARATE 100 MG TAB PO (21:49)
[2018-05-26] MEDS: ATORVASTATIN 20 MG TAB PO (21:49)
[2018-05-27 06:27] LABS: BEDSIDE GLUCOSE 119 MG/DL (70-105)
[2018-05-27] MEDS: DULoxetine 30 MG CAP (CYMBALTA) PO (09:59)
[2018-05-27] MEDS: metFORMIN 850 MG TAB PO ×2 (09:59→18:05)
[2018-05-27] MEDS: PANTOPRAZOLE 40MG TAB (PROTONIX) PO (09:59)
[2018-05-27] MEDS: GABAPENTIN 300 MG CAP PO ×3 (09:59→21:14)
[2018-05-27] MEDS: lamoTRIgine 25 MG TAB PO (09:59)
[2018-05-27] MEDS: LIDOCAINE 5% (LIDODERM) PATCH TD (13:27)
[2018-05-27] MEDS: hydrOXYzine 50 MG TAB PO (18:04)
[2018-05-27] MEDS: ATORVASTATIN 20 MG TAB PO (21:13)
[2018-05-27] MEDS: QUEtiapine FUMARATE 100 MG TAB PO (21:14)
[2018-05-27] MEDS: traZODone 50 MG TAB PO (21:14)
[2018-05-27] MEDS: ACETAMINOPHEN TAB 650MG DOSE (2X325MG) PO (21:14)
[2018-05-27] MEDS: oxyBUTYnin *DITROPAN XL* 5 MG TABCR PO (21:14)
[2018-05-27] MEDS: **NOTE PATIENT COMMENT** MISC XX (21:15)
[2018-05-28] MEDS: metFORMIN 850 MG TAB PO ×2 (07:53→17:14)
[2018-05-28] MEDS: GABAPENTIN 300 MG CAP PO ×3 (08:43→22:59)
[2018-05-28] MEDS: lamoTRIgine 25 MG TAB PO (08:43)
[2018-05-28] MEDS: PANTOPRAZOLE 40MG TAB (PROTONIX) PO (08:43)
[2018-05-28] MEDS: DULoxetine 30 MG CAP (CYMBALTA) PO (08:43)
[2018-05-28] MEDS: DOCUSATE SODIUM 100 MG CAP PO ×2 (08:44→22:59)
[2018-05-28 17:14] LABS: BEDSIDE GLUCOSE 136 MG/DL (70-105)
[2018-05-28] MEDS: **NOTE PATIENT COMMENT** MISC XX ×2 (21:00)
[2018-05-28] MEDS: ATORVASTATIN 20 MG TAB PO (22:59)
[2018-05-28] MEDS: QUEtiapine FUMARATE 100 MG TAB PO (22:59)
[2018-05-28] MEDS: traZODone 50 MG TAB PO (22:59)
[2018-05-28] MEDS: oxyBUTYnin *DITROPAN XL* 5 MG TABCR PO (23:00)
[2018-05-28] MEDS: LIDOCAINE 5% (LIDODERM) PATCH TD (23:24)
[2018-05-29 06:22] LABS: BEDSIDE GLUCOSE 129 MG/DL (70-105)
[2018-05-29] MEDS: PANTOPRAZOLE 40MG TAB (PROTONIX) PO (08:44)
[2018-05-29] MEDS: metFORMIN 850 MG TAB PO ×2 (08:44→17:32)
[2018-05-29] MEDS: lamoTRIgine 25 MG TAB PO (08:44)
[2018-05-29] MEDS: GABAPENTIN 300 MG CAP PO ×3 (08:44→21:22)
[2018-05-29] MEDS: DULoxetine 30 MG CAP (CYMBALTA) PO (08:44)
[2018-05-29] MEDS: DOCUSATE SODIUM 100 MG CAP PO ×2 (08:44→21:22)
[2018-05-29] MEDS: MOM 30ML SUSPENSION UDC PO (16:19)
[2018-05-29] MEDS: ACETAMINOPHEN TAB 650MG DOSE (2X325MG) PO (16:22)
[2018-05-29 16:47] LABS: BEDSIDE GLUCOSE 123 MG/DL (70-105)
[2018-05-29] MEDS: **NOTE PATIENT COMMENT** MISC XX (21:00)
[2018-05-29] MEDS: oxyBUTYnin *DITROPAN XL* 5 MG TABCR PO (21:22)
[2018-05-29] MEDS: ATORVASTATIN 20 MG TAB PO (21:22)
[2018-05-29] MEDS: QUEtiapine FUMARATE 100 MG TAB PO (21:22)
[2018-05-29] MEDS: traZODone 50 MG TAB PO (21:22)
[2018-05-29] MEDS: LIDOCAINE 5% (LIDODERM) PATCH TD (21:47)
[2018-05-30 06:24] LABS: BEDSIDE GLUCOSE 109 MG/DL (70-105)
[2018-05-30] MEDS: metFORMIN 850 MG TAB PO (07:26)
[2018-05-30] MEDS: GABAPENTIN 300 MG CAP PO (08:39)
[2018-05-30] MEDS: DOCUSATE SODIUM 100 MG CAP PO (08:40)
[2018-05-30] MEDS: lamoTRIgine 25 MG TAB PO (08:40)
[2018-05-30] MEDS: PANTOPRAZOLE 40MG TAB (PROTONIX) PO (08:40)
[2018-05-30] MEDS: DULoxetine 30 MG CAP (CYMBALTA) PO (08:40)
[2018-05-30] MEDS: FERROUS SULFATE 325MG TAB PO (09:41)
== END 2018-05-30 13:25 | disposition home or self-care (01) | DRG 755 ==
LOC: M ED 13:39 → M ED INP 17:16 → M PSY 18:00
DX: F43.10 Post-traumatic stress disorder, unspecified (principal); F33.3 Major depressive disorder, recurrent, severe with psychotic symptoms; D51.9 Vitamin B12 deficiency anemia, unspecified; J44.9 Chronic obstructive pulmonary disease, unspecified; E66.01 Morbid (severe) obesity due to excess calories; Z76.5 Malingerer [conscious simulation]; Z79.899 Other long term (current) drug therapy; Z88.8 Allergy status to other drugs, medicaments and biological substances; E11.9 Type 2 diabetes mellitus without complications; I25.10 Atherosclerotic heart disease of native coronary artery without angina pectoris; I25.2 Old myocardial infarction; F41.9 Anxiety disorder, unspecified; E78.00 Pure hypercholesterolemia, unspecified; Z85.41 Personal history of malignant neoplasm of cervix uteri; R07.89 Other chest pain

== ENCOUNTER 2018-06-03 20:25 | Emergency (ER) | payer OTHER ==
[2018-06-03] MEDS: KETOROLAC 60 MG/2 ML VIAL (J1885) IM (22:00)
[2018-06-03] MEDS: BACLOFEN 10 MG TAB PO (22:00)
== END 2018-06-03 22:20 | disposition home or self-care (01) ==
LOC: M ED 20:25
DX: G89.29 Other chronic pain (principal); M54.5 Low back pain; E11.9 Type 2 diabetes mellitus without complications; I50.9 Heart failure, unspecified; J44.9 Chronic obstructive pulmonary disease, unspecified; I25.2 Old myocardial infarction; R56.9 Unspecified convulsions; F41.9 Anxiety disorder, unspecified; F43.10 Post-traumatic stress disorder, unspecified; F33.9 Major depressive disorder, recurrent, unspecified; E78.5 Hyperlipidemia, unspecified; F19.21 Other psychoactive substance dependence, in remission; Z79.899 Other long term (current) drug therapy; Z79.84 Long term (current) use of oral hypoglycemic drugs; Z88.8 Allergy status to other drugs, medicaments and biological substances
CPT/HCPCS: J1885

== ENCOUNTER 2018-06-14 12:23 | Emergency (ER) | payer OTHER, MEDICAID, SELFPAY | END 2018-06-14 13:10 | disposition home or self-care (01) | LOC: M ED 12:23 | DX: K02.9 Dental caries, unspecified (principal); Z88.8 Allergy status to other drugs, medicaments and biological substances | CPT/HCPCS: 99282 ==

== ENCOUNTER 2018-06-14 18:14 | Emergency (ER) | payer OTHER ==
[2018-06-14 19:24] LABS: BASO # 0.1 10^3/uL (0.0-0.2); BASO % 0.4 % (0.0-1.0); EOS # 0.1 10^3/uL (0.0-0.50); EOS % 0.5 % (0.0-3.0); HEMATOCRIT 34.6 % (36.0-47.0); HEMOGLOBIN 11.5 g/dl (12.0-15.5); IMMATURE GRANULOCYTE % 0.4 % (0-3.0); LYMPH # 1.4 10^3/uL (1.5-4.5); MEAN CORPUSCULAR HEMOGLOBIN 26.4 pg (27.0-33.0); MEAN CORPUSCULAR HGB CONC 33.2 g/dl (32.0-36.5); MEAN CORPUSCULAR VOLUME 79.5 fl (80.0-96.0); MONO # 0.6 10^3/uL (0.0-0.8); MONO % 4.8 % (0.0-5.0); NEUTROPHILS # 9.8 10^3/uL (1.8-7.7); NEUTROPHILS % 81.9 % (36.0-66.0); PLATELET COUNT, AUTOMATED 317 10^3/uL (150-450); RED BLOOD COUNT 4.35 10^6/uL (4.00-5.40); RED CELL DISTRIBUTION WIDTH 16.3 % (11.5-14.5)
[2018-06-14] MEDS: CLINDAMYCIN 900 MG in APPROPRIATE DILUENT 1 EA IV (19:29)
[2018-06-14] MEDS: methylPREDNISolone INJ 125 MG/2 ML VIAL (J2930) IV (19:29)
[2018-06-14] MEDS: MORPHINE 4 MG/ML 1ML VIAL/SYRINGE (J2270) IV (19:29)
[2018-06-14 19:39] LABS: ANION GAP 8 MEQ/L (8-16); BLOOD UREA NITROGEN 9 MG/DL (7-18); CALCIUM LEVEL 8.8 MG/DL (8.5-10.1); CARBON DIOXIDE LEVEL 28 MEQ/L (21-32); CHLORIDE LEVEL 103 MEQ/L (98-107); GLOMERULAR FILTRATION RATE > 60.0 (>51); GLUCOSE, FASTING 123 MG/DL (70-100); POTASSIUM SERUM 4.3 MEQ/L (3.5-5.1); SODIUM LEVEL 139 MEQ/L (136-145)
[2018-06-14] MEDS ORDERED: ISOVUE-370 76% 100ML VIAL (Q9967) As Ordered (20:09)
[2018-06-14] MEDS: NORCO 5/325MG TABLET (BULK FOR ED) PO (21:59)
== END 2018-06-14 22:00 | disposition home or self-care (01) ==
LOC: M ED 18:14
DX: R22.0 Localized swelling, mass and lump, head (principal); K04.7 Periapical abscess without sinus; K02.9 Dental caries, unspecified; I50.9 Heart failure, unspecified; I25.2 Old myocardial infarction; E78.5 Hyperlipidemia, unspecified; J44.9 Chronic obstructive pulmonary disease, unspecified; Z86.73 Personal history of transient ischemic attack (TIA), and cerebral infarction without residual deficits; Z88.8 Allergy status to other drugs, medicaments and biological substances; Z79.899 Other long term (current) drug therapy; Z79.84 Long term (current) use of oral hypoglycemic drugs
CPT/HCPCS: J2270

== ENCOUNTER 2018-06-22 08:03 | Emergency (ER) | payer OTHER ==
[2018-06-22 09:11] LABS: MEAN CORPUSCULAR HEMOGLOBIN 26.2 pg (27.0-33.0); MEAN CORPUSCULAR HGB CONC 33.3 g/dl (32.0-36.5); MEAN CORPUSCULAR VOLUME 78.6 fl (80.0-96.0); PLATELET COUNT, AUTOMATED 396 10^3/uL (150-450); RED BLOOD COUNT 4.96 10^6/uL (4.00-5.40); RED CELL DISTRIBUTION WIDTH 15.5 % (11.5-14.5); WHITE BLOOD COUNT 7.8 10^3/uL (4.0-10.0)
[2018-06-22 09:34] LABS: ALBUMIN 3.8 GM/DL (3.2-5.2); ALBUMIN/GLOBULIN RATIO 0.93 (1.00-1.93); ALKALINE PHOSPHATASE 104 U/L (45-117); ALT/SGPT 24 U/L (12-78); ANION GAP 12 MEQ/L (8-16); AST/SGOT 14 U/L (7-37); BILIRUBIN,DIRECT < 0.1 MG/DL (0.0-0.2); BILIRUBIN,TOTAL 0.3 MG/DL (0.2-1.0); BLOOD UREA NITROGEN 6 MG/DL (7-18); CALCIUM LEVEL 8.8 MG/DL (8.5-10.1); CARBON DIOXIDE LEVEL 22 MEQ/L (21-32); CHLORIDE LEVEL 107 MEQ/L (98-107); CREATININE FOR GFR 0.66 MG/DL (0.55-1.30); ETHYL ALCOHOL (ETHANOL) < 0.003 % (0.000-0.010); GLOMERULAR FILTRATION RATE > 60.0 (>51); GLUCOSE, FASTING 134 MG/DL (70-100); POTASSIUM SERUM 3.8 MEQ/L (3.5-5.1); SALICYLATE LEVEL < 1.7 MG/DL (5.0-30.0); SODIUM LEVEL 141 MEQ/L (136-145); TOTAL PROTEIN 7.9 GM/DL (6.4-8.2)
[2018-06-22 09:37] LABS: ACETAMINOPHEN LEVEL < 2.0 UG/ML (10.0-30.0)
[2018-06-22 10:45] LABS: AMPHETAMINES LEVEL URINE NEGATIVE (NEGATIVE); BARBITURATES URINE NEGATIVE (NEGATIVE); BENZODIAZEPINES URINE POSITIVE (NEGATIVE); CANNABINOIDS URINE NEGATIVE (NEGATIVE); COCAINE METABOLITE URINE NEGATIVE (NEGATIVE); METHADONE URINE NEGATIVE (NEGATIVE); OPIATES URINE POSITIVE (NEGATIVE); PHENCYCLIDINE URINE NEGATIVE (NEGATIVE)
[2018-06-22 20:31] LABS: BEDSIDE GLUCOSE 134 MG/DL (70-105)
[2018-06-22] MEDS: traZODone 50 MG TAB PO (21:18)
[2018-06-22] MEDS: FERROUS SULFATE 325MG TAB PO (21:18)
[2018-06-22] MEDS: PANTOPRAZOLE 40MG TAB (PROTONIX) PO (21:18)
[2018-06-22] MEDS: GABAPENTIN 300 MG CAP PO (21:19)
[2018-06-22] MEDS: QUEtiapine FUMARATE 200 MG TAB PO (21:19)
[2018-06-22] MEDS: metFORMIN 850 MG TAB PO (21:19)
[2018-06-22] MEDS: ATORVASTATIN 20 MG TAB PO (21:19)
[2018-06-22] MEDS: oxyBUTYnin 5 MG TAB PO (21:19)
== END 2018-06-23 01:47 | disposition short-term general hospital (02) ==
LOC: M ED 06-23 01:47
DX: R45.851 Suicidal ideations (principal); F17.200 Nicotine dependence, unspecified, uncomplicated
CPT/HCPCS: 93005

== ENCOUNTER 2018-12-12 11:28 | Emergency (ER) | payer MEDICAID, OTHER, SELFPAY ==
[~2018-12-12] VITALS: Ht 160 cm; Wt 99.2 kg
[~2018-12-12 11:28] MED LIST changes: +AMOX875T PO; +BACL10TA2 PO; +DITR5TAB PO; +DULO30CA PO; +GABA-1171 PO; -GABA-279 PO; +GABA-843 PO; +HYDR50TA70 PO; +HYDRO50TAB PO; +IRON65TA PO; +LIDO5TD TOP; +METF850T4 PO; +NORCOTAB PO; +PANT40TA3 PO; +QUET400T PO; +SERO200T PO
[2018-12-12] MEDS ORDERED: QUET400T PO (12:11)
[2018-12-12] MEDS ORDERED: LAMO25TA4 PO (12:11)
[2018-12-12] MEDS ORDERED: METF10004 PO (12:11)
[2018-12-12] MEDS ORDERED: GABA-1171 (12:11)
[2018-12-12] MEDS ORDERED: DULO30CA47 (12:11)
[2018-12-12 12:14] VITALS: BP 161/81
[2018-12-12] MEDS ORDERED: NITROGLYCERIN 0.4 MG SUBL TABLET SL PRN (12:15)
[2018-12-12] MEDS ORDERED: ASPIRIN 81 MG CHEW TABLET PO ONE (12:15)
[2018-12-12 12:21] LABS: BASO # 0.1 10^3/uL (0.0-0.2); BASO % 0.7 % (0.0-1.0); EOS # 0.2 10^3/uL (0.0-0.50); EOS % 2.2 % (0.0-3.0); HEMATOCRIT 34.3 % (36.0-47.0); HEMOGLOBIN 11.3 g/dl (12.0-15.5); LYMPH # 1.7 10^3/uL (1.5-4.5); LYMPH % 20.8 % (24.0-44.0); MEAN CORPUSCULAR HEMOGLOBIN 23.8 pg (27.0-33.0); MEAN CORPUSCULAR HGB CONC 32.9 g/dl (32.0-36.5); MEAN CORPUSCULAR VOLUME 72.2 fl (80.0-96.0); MONO # 0.7 10^3/uL (0.0-0.8); MONO % 8.7 % (0.0-5.0); NEUTROPHILS # 5.4 10^3/uL (1.8-7.7); NEUTROPHILS % 67.4 % (36.0-66.0); PLATELET COUNT, AUTOMATED 447 10^3/uL (150-450); RED BLOOD COUNT 4.75 10^6/uL (4.00-5.40); WHITE BLOOD COUNT 8.1 10^3/uL (4.0-10.0)
[2018-12-12 12:43] LABS: INR 0.95; PROTHROMBIN TIME 12.8 SECONDS (12.1-14.4)
[2018-12-12 12:44] LABS: PARTIAL THROMBOPLASTIN TIME 30.2 SECONDS (25.4-37.6)
[2018-12-12 12:46] LABS: D-DIMER QUANT 368.27 ng/ml (<500)
--- NOTE | 2018-12-12 12:58 | REP ---
Chest two views HISTORY: Chest pain Comparison: 07/25/2017 The lungs are clear. The heart is normal in size. The pulmonary vasculature is normal in appearance. The bony structure is intact. IMPRESSION: No acute disease. Electronically Signed by Davie Sanchez MD 12/12/2018 12:49 P
[2018-12-12 13:03] LABS: ALT/SGPT 16 U/L (12-78); BILIRUBIN,DIRECT < 0.1 MG/DL (0.0-0.2); BILIRUBIN,TOTAL 0.3 MG/DL (0.2-1.0); BLOOD UREA NITROGEN 7 MG/DL (7-18); CALCIUM LEVEL 8.9 MG/DL (8.5-10.1); CARBON DIOXIDE LEVEL 28 MEQ/L (21-32); CHLORIDE LEVEL 101 MEQ/L (98-107); CK-MB VALUE MASS < 1.0 NG/ML (<3.6); CPK CREATINE PHOSPHOKINASE 84 U/L (26-192); CREATININE FOR GFR 0.69 MG/DL (0.55-1.30); ETHYL ALCOHOL (ETHANOL) < 0.003 % (0.000-0.010); GLOMERULAR FILTRATION RATE > 60.0 (>51); GLUCOSE, FASTING 108 MG/DL (70-100); LIPASE 73 U/L (73-393); MB/CK RELATIVE INDEX 1.19 (< OR =4); POTASSIUM SERUM 4.1 MEQ/L (3.5-5.1); SALICYLATE LEVEL < 1.7 MG/DL (5.0-30.0); SODIUM LEVEL 136 MEQ/L (136-145); TOTAL PROTEIN 7.5 GM/DL (6.4-8.2); TROPONIN I < 0.02 NG/ML (< 0.10)
[2018-12-12 13:04] LABS: ACETAMINOPHEN LEVEL < 2.0 UG/ML (10.0-30.0)
[2018-12-12] MEDS ORDERED: hydrOXYzine 50 MG TAB PO ONE (13:15)
[2018-12-12 13:55] LABS: AMPHETAMINES LEVEL URINE NEGATIVE (NEGATIVE); BARBITURATES URINE NEGATIVE (NEGATIVE); BENZODIAZEPINES URINE NEGATIVE (NEGATIVE); CANNABINOIDS URINE NEGATIVE (NEGATIVE); COCAINE METABOLITE URINE NEGATIVE (NEGATIVE); METHADONE URINE NEGATIVE (NEGATIVE); OPIATES URINE NEGATIVE (NEGATIVE); PHENCYCLIDINE URINE NEGATIVE (NEGATIVE)
[2018-12-12] MEDS ORDERED: lamoTRIgine 25 MG TAB PO ONE (15:15)
--- NOTE | 2018-12-12 17:39 | ECGEPIP ---
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
--- NOTE | 2018-12-12 17:47 | ECGEPIP ---
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
[2018-12-12 18:15] LABS: CK-MB VALUE MASS < 1.0 NG/ML (<3.6); CPK CREATINE PHOSPHOKINASE 66 U/L (26-192); MB/CK RELATIVE INDEX 1.52 (< OR =4); TROPONIN I < 0.02 NG/ML (< 0.10)
[2018-12-12] MEDS ORDERED: chlorproMAZINE INJ 50MG/2ML AMP (J3230) IM STA (20:00)
[2018-12-12] MEDS ORDERED: QUEtiapine FUMARATE 200 MG TAB PO ONE (21:15)
[2018-12-13 00:10] VITALS: BP 144/69
== END 2018-12-13 00:15 | disposition short-term general hospital (02) ==
LOC: EDBD 11:28 → M ED 11:28
DX: F29 Unspecified psychosis not due to a substance or known physiological condition (principal); R06.02 Shortness of breath; I25.10 Atherosclerotic heart disease of native coronary artery without angina pectoris; I25.2 Old myocardial infarction; E11.9 Type 2 diabetes mellitus without complications; E78.5 Hyperlipidemia, unspecified; J44.9 Chronic obstructive pulmonary disease, unspecified; F32.9 Major depressive disorder, single episode, unspecified; E66.9 Obesity, unspecified; Z85.41 Personal history of malignant neoplasm of cervix uteri; Z95.2 Presence of prosthetic heart valve; Z88.8 Allergy status to other drugs, medicaments and biological substances; Z79.899 Other long term (current) drug therapy; Z79.84 Long term (current) use of oral hypoglycemic drugs
CPT/HCPCS: 36415; 71046; 80048; 80076; 80307; 82550; 82553; 83690; 84439; 84443; 85025; 85379; 85610; 85730; 93005; 93041; 94760; 99285; G0480

== ENCOUNTER 2019-01-19 12:47 | Inpatient (IN) | payer OTHER ==
[~2019-01-19] VITALS: Ht 160 cm; Wt 99.0 kg
[~2019-01-19 12:47] MED LIST changes: -/ADVA50050 IN; -/QUET10TA OR; +ADVA1AER2 IN; -DULO30CA PO; +DULO30CA47; +DULO30CA9 PO; +HYDR-3715 PO; +LAMO25TA4 PO; -NORCOTAB PO; +SERO1TAB OR
[2019-01-19] MEDS ORDERED: HYDR50TA30 (13:03)
[2019-01-19] MEDS ORDERED: TRAZ-163 PO (13:03)
[2019-01-19] MEDS ORDERED: DULO1CAP2 PO (13:03)
[2019-01-19] MEDS ORDERED: OLAN10TA2 PO (13:03)
[2019-01-19] MEDS ORDERED: PRAV40TA2 PO (13:03)
[2019-01-19 14:35] LABS: HEMATOCRIT 28.1 % (36.0-47.0); HEMOGLOBIN 8.8 g/dl (12.0-15.5); MEAN CORPUSCULAR HEMOGLOBIN 23.1 pg (27.0-33.0); MEAN CORPUSCULAR HGB CONC 31.3 g/dl (32.0-36.5); MEAN CORPUSCULAR VOLUME 73.8 fl (80.0-96.0); PLATELET COUNT, AUTOMATED 270 10^3/uL (150-450); RED BLOOD COUNT 3.81 10^6/uL (4.00-5.40); WHITE BLOOD COUNT 6.2 10^3/uL (4.0-10.0)
[2019-01-19 15:04] LABS: HCG, SERUM QUALITATIVE NEGATIVE (NEGATIVE)
[2019-01-19 15:14] LABS: ACETAMINOPHEN LEVEL < 2.0 UG/ML (10.0-30.0); ALBUMIN 3.3 GM/DL (3.2-5.2); ALT/SGPT 12 U/L (12-78); BILIRUBIN,DIRECT < 0.1 MG/DL (0.0-0.2); BILIRUBIN,TOTAL 0.2 MG/DL (0.2-1.0); BLOOD UREA NITROGEN 10 MG/DL (7-18); CALCIUM LEVEL 7.9 MG/DL (8.5-10.1); CARBON DIOXIDE LEVEL 25 MEQ/L (21-32); CHLORIDE LEVEL 105 MEQ/L (98-107); GLOMERULAR FILTRATION RATE > 60.0 (>51); GLUCOSE, FASTING 125 MG/DL (70-100); POTASSIUM SERUM 3.8 MEQ/L (3.5-5.1); SALICYLATE LEVEL < 1.7 MG/DL (5.0-30.0); SODIUM LEVEL 138 MEQ/L (136-145); TOTAL PROTEIN 6.7 GM/DL (6.4-8.2)
[2019-01-19 15:47] LABS: ETHYL ALCOHOL (ETHANOL) < 0.003 % (0.000-0.010)
--- NOTE | 2019-01-19 16:19 | REP ---
Clinical: Menorrhagia. Technique: Transabdominal pelvic ultrasound with color Doppler evaluation of the ovaries. Findings: Bladder is unremarkable and measures 13.0 x 14.7 x 7.8 cm. Heterogeneous retroflexed uterus measures 14.3 x 7.8 x 8.4 cm with posterior uterine fibroid measuring 8.8 x 6.6 x 7.9 cm. Endometrial complex measures 13.9 mm thickness without discrete endometrial pathology appreciated. Right ovary is normal in appearance and vascularity measuring 3.4 x 3.3 x 4.1 cm (RI 0.49) with 2.9 x 2.5 x 2.4 cm dominant follicle. Left ovary not visualized. No pelvic fluid or adnexal mass lesion. Impression: Heterogeneous retroflexed enlarged uterus with posterior fibroid. Essentially normal right ovary with dominant follicle. Left ovary not visualized. Electronically Signed by Quinten Chavez MD 01/19/2019 04:10 P
[2019-01-19 18:06] LABS: AMPHETAMINES LEVEL URINE NEGATIVE (NEGATIVE); BARBITURATES URINE NEGATIVE (NEGATIVE); BENZODIAZEPINES URINE NEGATIVE (NEGATIVE); CANNABINOIDS URINE NEGATIVE (NEGATIVE); COCAINE METABOLITE URINE NEGATIVE (NEGATIVE); METHADONE URINE NEGATIVE (NEGATIVE); OPIATES URINE NEGATIVE (NEGATIVE); PHENCYCLIDINE URINE NEGATIVE (NEGATIVE)
[2019-01-19] MEDS ORDERED: metFORMIN (GLUCOPHAGE) 500 MG TAB PO ONE (18:45)
[2019-01-19 21:34] LABS: FERRITIN 4 NG/ML (8-252); IRON (FE) 19 UG/DL (50-170); PERCENT SATURATION 5.7 % (13.2-45.0); TOTAL IRON BINDING CAPACITY 331 UG/DL (250-450)
[2019-01-20] MEDS ORDERED: hydrOXYzine 50 MG TAB PO STA (04:13)
[2019-01-20] MEDS ORDERED: GABAPENTIN 100 MG CAP PO ONE (04:15)
[2019-01-20] MEDS ORDERED: traZODone 100 MG TAB PO ONE (04:15)
[2019-01-20] MEDS ORDERED: BENZ-52 PO (08:53)
[2019-01-20] MEDS ORDERED: CLON-412 PO (08:53)
[2019-01-20] MEDS ORDERED: OLANZapine 10 MG TAB PO SCH (09:00)
[2019-01-20] MEDS ORDERED: GABAPENTIN 100 MG CAP PO SCH (09:00)
[2019-01-20] MEDS ORDERED: hydrOXYzine 50 MG TAB PO SCH (09:00)
[2019-01-20] MEDS ORDERED: cloNIDine 0.1 MG TAB PO SCH (09:00)
[2019-01-20] MEDS ORDERED: DULoxetine 30 MG CAP (CYMBALTA) PO SCH (09:00)
[2019-01-20] MEDS ORDERED: lamoTRIgine 25 MG TAB PO SCH (09:00)
[2019-01-20] MEDS ORDERED: PRAVASTATIN 20 MG TAB PO SCH (09:00)
[2019-01-20] MEDS ORDERED: metFORMIN (GLUCOPHAGE) 500 MG TAB PO SCH (09:00)
[2019-01-20] MEDS ORDERED: traZODone 50 MG TAB PO PRN (15:15)
[2019-01-20] MEDS ORDERED: MOM 30ML SUSPENSION UDC PO PRN (15:15)
[2019-01-20] MEDS ORDERED: MAALOX 30 ML SUSP *UDC PO PRN (15:15)
[2019-01-20 16:11] VITALS: BP 142/65
[2019-01-20] MEDS ORDERED: BENZTROPINE 1 MG TAB PO PRN (19:15)
[2019-01-20] MEDS: metFORMIN (GLUCOPHAGE) 500 MG TAB PO SCH (19:52)
[2019-01-20] MEDS ORDERED: traZODone 100 MG TAB PO SCH (21:00)
[2019-01-20] MEDS: GABAPENTIN 100 MG CAP PO SCH (21:39)
[2019-01-20] MEDS: cloNIDine 0.1 MG TAB PO SCH (21:39)
[2019-01-20] MEDS: hydrOXYzine 50 MG TAB PO SCH (21:39)
--- NOTE | 2019-01-20 21:50 | ECGEPIP ---
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 Order Number: [id number] Reading MD: Miguel Stoddard Measurements Intervals [place] Rate: 66 P: 42 VA: 142 QRS: 14 QRSD: 83 T: 7 QT: 440 QTc: 463 Interpretive Statements SINUS RHYTHM LOW QRS VOLTAGE IN PRECORDIAL LEADS NSTTW ABNORMALITIES SIMILAR TO 12/12/18 Electronically Signed On 01-20-2019 21:50:12 EDT by Miguel Stoddard
[2019-01-21 06:46] VITALS: BP 127/72
[2019-01-21] MEDS: metFORMIN (GLUCOPHAGE) 500 MG TAB PO SCH ×2 (07:47→17:02)
[2019-01-21] MEDS: cloNIDine 0.1 MG TAB PO SCH ×2 (08:30→20:31)
[2019-01-21] MEDS: hydrOXYzine 50 MG TAB PO SCH ×3 (08:31→20:31)
[2019-01-21] MEDS: PRAVASTATIN 20 MG TAB PO SCH (08:31)
[2019-01-21] MEDS: GABAPENTIN 100 MG CAP PO SCH ×3 (08:31→20:47)
[2019-01-21] MEDS: DULoxetine 30 MG CAP (CYMBALTA) PO SCH (08:32)
[2019-01-21] MEDS: lamoTRIgine 25 MG TAB PO SCH (08:32)
[2019-01-21] MEDS ORDERED: OLANZapine 10 MG TAB PO SCH (09:00)
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
[2019-01-21 12:00] VITALS: BP 130/76
--- NOTE | 2019-01-21 13:45 | HPE ---
DATE OF ADMISSION: 01/20/2019 This is a mental health history and physical. She is a patient of Dr. Vikas Kim at [facility]. PAST MEDICAL HISTORY: Type 2 diabetes. Coronary artery disease with myocardial infarction (MA) times two. Hypertensive heart disease. Chronic obstructive pulmonary disease (COPD). Depression. Obesity. Hyperlipidemia. Status post bioprosthetic heart valve replacement, unspecified cardiac valve. OUTPATIENT MEDICATIONS: - clonidine 0.1 mg twice a day - duloxetine 30 mg daily - gabapentin 100 mg three times a day - lamotrigine 25 mg daily - metformin 500 mg twice a day - olanzapine 10 mg daily - pravastatin 40 mg daily ALLERGIES: NONSTEROIDAL ANTIINFLAMMATORY DRUGS (NSAIDS), HALDOL, SHELLFISH. REVIEW OF SYSTEMS: No polyuria, polydipsia, chest pain, shortness of breath. She has chronic lower extremity edema. No rectal bleeding or urinary bleeding. She is supposed to be on aspirin daily for heart valve, but she does not take this. PHYSICAL EXAMINATION: Vital signs per flow sheet. Alert and conversant, in no distress. Pupils equal, round, and reactive to light. Tympanic membranes and pharynx benign. Neck: No masses. Lungs clear. Heart: Regular rate and rhythm without murmur. Abdomen soft, nontender, no masses. 1+ peripheral edema. LABORATORIES: Complete blood count (CBC) unremarkable. Hemoglobin is 8.8 with MCV of 73. Hemoglobin is down from 11.3 two months ago. Ferritin is low. Total iron-binding capacity (TIBC) upper limits of normal. IMPRESSION: 1. Type 2 diabetes. Continue her metformin. Get a hemoglobin A1c. Metformin should not cause hypoglycemia, so I do not think she needs fingerstick monitoring of blood sugars while here. 2. Hyperlipidemia. Continue pravastatin 40 mg daily. 3. Hypertensive heart disease. Continue clonidine 0.1 mg twice a day. 4. History of "congestive heart failure (CHF)." She has chronic lower extremity edema. She also has a bioprosthetic heart valve. She has not been taking her aspirin. I do not hear any murmurs. I will get an echocardiogram to make sure that this is functioning normally and also check on her ejection fraction. It sounds like she is followed by [facility] in the past, but she cannot remember the last time she was seen by cardiology. 5. Iron-deficiency anemia. Check stool for occult blood. Start ferrous sulfate. Outpatient workup advised. [facility] was called. Dr. Kim is off today. I left a message with his nurse concerning iron-deficiency anemia and need for outpatient followup for this.
[2019-01-21 15:54] LABS: HEMOGLOBIN A1c 5.7 %
[2019-01-21 18:00] VITALS: BP 125/58
[2019-01-21] MEDS: QUEtiapine FUMARATE 200 MG TAB PO SCH (20:31)
[2019-01-21] MEDS: FERROUS SULFATE 325MG TAB PO SCH (20:31)
[2019-01-21 21:00] VITALS: BP 130/60
[2019-01-21] MEDS: traZODone 50 MG TAB PO SCH (21:00)
[2019-01-22 06:45] VITALS: BP 132/88
[2019-01-22] MEDS: FERROUS SULFATE 325MG TAB PO SCH ×2 (08:51→22:30)
[2019-01-22] MEDS: PRAVASTATIN 20 MG TAB PO SCH (08:51)
[2019-01-22] MEDS: hydrOXYzine 50 MG TAB PO SCH ×3 (08:51→22:30)
[2019-01-22] MEDS: lamoTRIgine 25 MG TAB PO SCH (08:51)
[2019-01-22] MEDS: QUEtiapine FUMARATE 200 MG TAB PO SCH ×2 (08:52→09:00)
[2019-01-22] MEDS: cloNIDine 0.1 MG TAB PO SCH ×2 (08:52→22:31)
[2019-01-22] MEDS: DULoxetine 30 MG CAP (CYMBALTA) PO SCH (08:52)
[2019-01-22] MEDS: GABAPENTIN 100 MG CAP PO SCH ×3 (08:52→22:30)
[2019-01-22] MEDS: metFORMIN (GLUCOPHAGE) 500 MG TAB PO SCH ×2 (08:52→17:25)
[2019-01-22] MEDS ORDERED: LORazepam 2 MG TAB PO ONE (10:00)
[2019-01-22] MEDS ORDERED: OLANZapine 10 MG TAB PO ONE (10:00)
[2019-01-22] MEDS ORDERED: OLANZapine ORAL DISINTEGRATING TAB 5MG PO PRN (10:30)
[2019-01-22] MEDS ORDERED: PALIPERIDONE 3 MG ER TAB (INVEGA) PO ONE (10:30)
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
--- NOTE | 2019-01-22 16:42 | ECHO ---
DATE OF PROCEDURE: 01/21/2019 REFERRING PHYSICIAN: Dr. Surendra Reddy INDICATION: Fever. HEIGHT: 160 cm. WEIGHT: 98 kg. 2D MEASUREMENTS: LVOT: 2.1 cm Aortic root: 3.0 cm Left atrium: 3.7 cm Ventricular septum: 1.10 cm Posterior wall: 1.08 cm Left ventricle diastole: 4.5 cm Inferior vena cava: 1.7 cm (more than 50% respiratory variation). DOPPLER MEASUREMENTS: Mild aortic regurgitation. Aortic valve velocity: 112 cm/s LVOT velocity: 83.5 cm/s LVOT VTI: 19.7 cm Very mild mitral regurgitation. Mitral E velocity: 78.6 cm/s Mitral A velocity: 83.9 cm/s Mitral deceleration time: 246 ms Mild tricuspid regurgitation. Estimated right ventricle systolic pressure: 37-42 mmHg assuming a pressure of 5-10 mmHg. MITRAL ANNULAR TISSUE DOPPLER: E prime septal: 6.20 cm/s E prime lateral: 6.53 cm/s DESCRIPTION: Rhythm was sinus. Image quality was fair. No pericardial effusion. This was a 2D, M-mode, color flow Doppler and pulse wave Doppler examination and included mitral annular tissue Doppler. CONCLUSIONS: 1. No vegetations apparent. 2. Normal left ventricle internal dimensions and wall thickness. Normal regional left ventricular (LV) wall motion and wall thickening. Normal LV systolic function. Left ventricular ejection fraction (LVEF) 60% by visual estimate. Grade 1 LV diastolic dysfunction. 3. Mild aortic valve sclerosis of a 3-cusp aortic valve. Mild aortic regurgitation. 4. Mild mitral annular calcification. Very mild mitral regurgitation. 5. Suggestive of mild-moderate elevation of estimated right ventricle systolic pressure. 6. Very small pericardial effusion.
--- NOTE | 2019-01-22 16:45 | IPNPDOC ---
Date Seen The patient was seen on 01/22/19. Progress Note SUBJECTIVE: Patient has no complaints at this time she tells me she is feeling quite well denies any chest pressure shortness breath fevers chills nausea vomiting or diarrhea OBJECTIVE PHYSICAL EXAMINATION: VITAL SIGNS: Please see below. GENERAL: Obese female sitting on exam table she does not appear to be in any acute distress she is awake alert oriented 3 speaking in complete sentences HEENT: She is wearing glasses moist mucous membranes elevation and CVP CARDIOVASCULAR: S1-S2 no murmur appreciated no mechanical click. RESPIRATORY: Clear to auscultation bilaterally. ABDOMINAL: Morbidly obese bowel sounds present abdomen is soft EXTREMITIES: Trace edema bilaterally but no clubbing or cyanosis LABORATORY DATA, IMAGING STUDIES, MICROBIOLOGY: Please see below. Echocardiogram: Ordered. DVT prophylaxis ordered?: Ambulating ASSESSMENT AND PLAN: This is a 53-year-old female with acute psychiatric issue warranting inpatient hospitalization . PROBLEMS: 1. Mood disorders: As per psychiatry. 2. Congestive heart failure: I will obtain recent clinic notes from Dr. Lazaro's office she tells me she was seen by him 2 and half weeks ago and that she is not on any significant cardiac medications. She does have some trace edema but it is certainly not impressive she is completely asymptomatic at this time.Will f/u echo 3. Iron deficiency anemia: Patient has been started on iron Dr. Reddy did call the PCP office and encourage outpatient follow-up and workup regarding this. 4. Dyslipidemia: Continue with pravastatin 5. Type 2 diabetes: Patient is on metformin hemoglobin A1c is actually quite low, the patient is continued on gabapentin 6. Hypertension: Continue clonidine VS, I&O, 24H, Fishbone Vital Signs/I&O Vital Signs Date Time Temp Pulse Resp B/P (MAP) Pulse Ox O2 Delivery O2 Flow Rate FiO2 01/22/19 08:52 132/88 01/22/19 06:45 97.2 88 14 01/20/19 16:11 96 01/20/19 14:41 Room Air Laboratory Data 24H LABS Laboratory Tests 2 01/21/19 16:54: Bedside Glucose (Misc Panel) 103 01/22/19 06:19: Bedside Glucose (Misc Panel) 87 PANTERA DRIVER MD Jan 22, 2019 16:45
[2019-01-22 18:00] VITALS: BP_SYST 132; BP_SYST 136; BP_DIAS 69; BP_DIAS 88
[2019-01-22] MEDS ORDERED: QUEtiapine FUMARATE 200 MG TAB PO SCH (21:00)
[2019-01-22] MEDS ORDERED: QUEtiapine FUMARATE 100 MG TAB PO SCH (21:00)
[2019-01-22] MEDS ORDERED: PALIPERIDONE 3 MG ER TAB (INVEGA) PO SCH (21:00)
[2019-01-22] MEDS: traZODone 50 MG TAB PO SCH (22:30)
[2019-01-23 06:30] VITALS: BP 129/61
[2019-01-23] MEDS: metFORMIN (GLUCOPHAGE) 500 MG TAB PO SCH ×2 (07:41→17:05)
[2019-01-23] MEDS ORDERED: PALIPERIDONE 3 MG ER TAB (INVEGA) PO SCH (09:00)
[2019-01-23] MEDS: DULoxetine 30 MG CAP (CYMBALTA) PO SCH (09:27)
[2019-01-23] MEDS: lamoTRIgine 25 MG TAB PO SCH (09:27)
[2019-01-23] MEDS: PRAVASTATIN 20 MG TAB PO SCH (09:27)
[2019-01-23] MEDS: GABAPENTIN 100 MG CAP PO SCH ×3 (09:27→21:29)
[2019-01-23] MEDS: FERROUS SULFATE 325MG TAB PO SCH ×2 (09:27→21:29)
[2019-01-23] MEDS: QUEtiapine FUMARATE 200 MG TAB PO SCH (09:28)
[2019-01-23] MEDS: hydrOXYzine 50 MG TAB PO SCH ×3 (09:28→21:29)
[2019-01-23] MEDS: cloNIDine 0.1 MG TAB PO SCH ×2 (09:28→21:29)
[2019-01-23 13:12] VITALS: BP 145/63
--- NOTE | 2019-01-23 14:38 | IPNPDOC ---
Date Seen The patient was seen on 01/23/19. Progress Note SUBJECTIVE: Patient has no complaints OBJECTIVE PHYSICAL EXAMINATION: VITAL SIGNS: Please see below. GENERAL: Obese female sitting on exam table she does not appear to be in any acute distress she is awake alert oriented 3 speaking in complete sentences HEENT: She is wearing glasses moist mucous membranes elevation and CVP CARDIOVASCULAR: S1-S2 no murmur appreciated no mechanical click. RESPIRATORY: Clear to auscultation bilaterally. ABDOMINAL: Morbidly obese bowel sounds present abdomen is soft EXTREMITIES: Trace edema bilaterally but no clubbing or cyanosis LABORATORY DATA, IMAGING STUDIES, MICROBIOLOGY: Please see below. Echocardiogram: 1. No vegetations apparent. 2. Normal left ventricle internal dimensions and wall thickness. Normal regional left ventricular (LV) wall motion and wall thickening. Normal LV systolic function. Left ventricular ejection fraction (LVEF) 60% by visual estimate. Grade 1 LV diastolic dysfunction. 3. Mild aortic valve sclerosis of a 3-cusp aortic valve. Mild aortic regurgitation. 4. Mild mitral annular calcification. Very mild mitral regurgitation. 5. Suggestive of mild-moderate elevation of estimated right ventricle systolic pressure. 6. Very small pericardial effusion. DVT prophylaxis ordered?: Ambulating ASSESSMENT AND PLAN: This is a 53-year-old female with acute psychiatric issue warranting inpatient hospitalization . PROBLEMS: 1. Mood disorders: As per psychiatry. 2. Chronic Diastolic Congestive heart failure:Echo reviewed, disease appears stable, she appears euvolemic, consider with optimial BP controls, f/u Dr. Mccollum upon discharge 3. Iron deficiency anemia: Patient has been started on iron Dr. Reddy did call the PCP office and encourage outpatient follow-up and workup regarding this. 4. Dyslipidemia: Continue with pravastatin 5. Type 2 diabetes: Patient is on metformin hemoglobin A1c is actually quite low, the patient is continued on gabapentin 6. Hypertension: Continue clonidine Will sign off, please call with questions VS, I&O, 24H, [place] Vital Signs/I&O Vital Signs Date Time Temp Pulse Resp B/P (MAP) Pulse Ox O2 Delivery O2 Flow Rate FiO2 01/23/19 13:12 101 145/63 (90) 95 01/23/19 06:30 98.3 14 01/20/19 14:41 Room Air Laboratory Data 24H LABS Laboratory Tests 2 01/22/19 17:24: Bedside Glucose (Misc Panel) 101 01/23/19 06:03: Bedside Glucose (Misc Panel) 122H PANTERA DRIVER MD Jan 23, 2019 14:38
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
[2019-01-23 18:32] VITALS: BP 106/63
[2019-01-23] MEDS: traZODone 50 MG TAB PO SCH (21:28)
[2019-01-24 07:05] VITALS: BP 121/78
[2019-01-24] MEDS: metFORMIN (GLUCOPHAGE) 500 MG TAB PO SCH ×2 (07:25→17:08)
[2019-01-24] MEDS: PRAVASTATIN 20 MG TAB PO SCH (08:15)
[2019-01-24] MEDS: cloNIDine 0.1 MG TAB PO SCH ×2 (08:15→21:43)
[2019-01-24] MEDS: GABAPENTIN 100 MG CAP PO SCH ×3 (08:15→21:44)
[2019-01-24] MEDS: hydrOXYzine 50 MG TAB PO SCH ×3 (08:15→21:43)
[2019-01-24] MEDS: lamoTRIgine 25 MG TAB PO SCH (08:15)
[2019-01-24] MEDS: FERROUS SULFATE 325MG TAB PO SCH ×2 (08:15→21:43)
[2019-01-24] MEDS: DULoxetine 30 MG CAP (CYMBALTA) PO SCH (08:15)
[2019-01-24] MEDS ORDERED: QUEtiapine FUMARATE 200 MG TAB PO SCH (09:00)
--- NOTE | 2019-01-24 17:54 | MHIPN ---
DATE: 01/24/2019 SUBJECTIVE: "I'm feeling better, less dizzy. I want to be discharged." OBJECTIVE: She is a 53-year-old female with a history of depression, posttraumatic stress disorder (PTSD), substance abuse disorder, who had multiple psychiatric hospitalizations, admitted for suicidal/homicidal thoughts. MENTAL STATUS EXAMINATION: She is casually dressed, clean clothes. Her eye contact is normal. Speech spontaneous, conversant. Mood is depressed. Affect is constricted. Thought process linear, goal directed. Thought content: Denied any suicidal or homicidal ideas. Denied any paranoia. Currently denies any auditory or visual hallucinations. Her insight and judgment are fair to limited. She is oriented to time, place, and person. DIAGNOSES: 1. Major depressive disorder with psychotic features. 2. Posttraumatic stress disorder. 3. Alcohol, cocaine, and opioid use disorder. VITAL SIGNS: Temperature 97.5, pulse is 79, respiratory rate is 14, blood pressure is 121/78. CURRENT MEDICATIONS: - Seroquel 200 mg at night - duloxetine 30 mg once daily - lamotrigine 75 mg daily - clonidine 0.5 mg twice a day - gabapentin 100 mg three times a day - hydroxyzine 50 mg three times a day DIAGNOSES: 1. Major depressive disorder with psychotic features. 2. Alcohol, cocaine, and opioid dependence. PLAN: Continue current medication. Continue monitoring the patient. Continue individual and group therapy.
[2019-01-24 18:00] VITALS: BP 110/62
[2019-01-24] MEDS: QUEtiapine FUMARATE 200 MG TAB PO SCH (21:43)
[2019-01-24] MEDS: traZODone 50 MG TAB PO SCH (21:44)
[2019-01-25 07:05] VITALS: BP 120/61
[2019-01-25] MEDS: metFORMIN (GLUCOPHAGE) 500 MG TAB PO SCH ×2 (07:22→17:02)
[2019-01-25] MEDS: GABAPENTIN 100 MG CAP PO SCH ×3 (09:12→21:53)
[2019-01-25] MEDS: DULoxetine 30 MG CAP (CYMBALTA) PO SCH (09:12)
[2019-01-25] MEDS: lamoTRIgine 25 MG TAB PO SCH (09:12)
[2019-01-25] MEDS: hydrOXYzine 50 MG TAB PO SCH ×3 (09:12→21:53)
[2019-01-25] MEDS: FERROUS SULFATE 325MG TAB PO SCH ×2 (09:12→21:54)
[2019-01-25] MEDS: cloNIDine 0.1 MG TAB PO SCH ×2 (09:13→21:54)
[2019-01-25] MEDS: PRAVASTATIN 20 MG TAB PO SCH (09:13)
[2019-01-25 18:00] VITALS: BP 108/60
[2019-01-25] MEDS: traZODone 50 MG TAB PO SCH (21:53)
[2019-01-25] MEDS: QUEtiapine FUMARATE 200 MG TAB PO SCH (21:54)
[2019-01-26 06:32] VITALS: BP 104/61
[2019-01-26] MEDS: metFORMIN (GLUCOPHAGE) 500 MG TAB PO SCH ×2 (09:18→17:12)
[2019-01-26] MEDS: hydrOXYzine 50 MG TAB PO SCH ×3 (09:18→21:55)
[2019-01-26] MEDS: FERROUS SULFATE 325MG TAB PO SCH ×2 (09:18→21:55)
[2019-01-26] MEDS: lamoTRIgine 25 MG TAB PO SCH (09:19)
[2019-01-26] MEDS: DULoxetine 30 MG CAP (CYMBALTA) PO SCH (09:19)
[2019-01-26] MEDS: GABAPENTIN 100 MG CAP PO SCH ×3 (09:19→21:55)
[2019-01-26] MEDS: cloNIDine 0.1 MG TAB PO SCH ×2 (09:26→22:00)
[2019-01-26] MEDS: PRAVASTATIN 20 MG TAB PO SCH (09:26)
--- NOTE | 2019-01-26 15:14 | MHIPN ---
DATE: 01/26/2019 SUBJECTIVE: "I am fine, I want to be discharged. I am willing to go to a drug rehabilitation." OBJECTIVE: She is a 53-year-old female with a history of depression, posttraumatic stress disorder (PTSD), substance abuse disorder, who was admitted because of suicidal/homicidal thoughts. Currently, the patient is improving, however, somewhat preoccupied and guarded. MENTAL STATUS EXAMINATION: She is casually dressed, clean clothes. Her eye contact is normal. Speech spontaneous, conversant. Mood is depressed. Affect is constricted. Thought process linear, goal directed. Denied any auditory or visual hallucinations. Denied any suicidal or homicidal ideas. Her insight and judgment are limited. DIAGNOSES: 1. Major depressive disorder with psychotic features. 2. Posttraumatic stress disorder. 3. Alcohol, cocaine, and opioid use disorder. VITAL SIGNS: Temperature 96.5, pulse is 70, respiratory rate is 18, blood pressure is 104/61. PLAN: Continue current medication. We are in the process of transferring her to inpatient rehabilitation.
[2019-01-26 18:05] VITALS: BP 131/79
[2019-01-26] MEDS: QUEtiapine FUMARATE 200 MG TAB PO SCH (21:55)
[2019-01-26] MEDS: traZODone 50 MG TAB PO SCH (21:55)
[2019-01-27 06:33] VITALS: BP 126/55
[2019-01-27] MEDS: DULoxetine 30 MG CAP (CYMBALTA) PO SCH (08:44)
[2019-01-27] MEDS: lamoTRIgine 25 MG TAB PO SCH (08:44)
[2019-01-27] MEDS: FERROUS SULFATE 325MG TAB PO SCH ×2 (08:45→22:27)
[2019-01-27] MEDS: PRAVASTATIN 20 MG TAB PO SCH (08:45)
[2019-01-27] MEDS: metFORMIN (GLUCOPHAGE) 500 MG TAB PO SCH ×2 (08:45→18:03)
[2019-01-27] MEDS: hydrOXYzine 50 MG TAB PO SCH ×3 (08:45→22:26)
[2019-01-27] MEDS: GABAPENTIN 100 MG CAP PO SCH ×3 (08:46→22:26)
[2019-01-27] MEDS: cloNIDine 0.1 MG TAB PO SCH ×2 (08:48→22:26)
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
[2019-01-27 17:52] LABS: AMPHETAMINES LEVEL URINE NEGATIVE (NEGATIVE); BARBITURATES URINE NEGATIVE (NEGATIVE); BENZODIAZEPINES URINE NEGATIVE (NEGATIVE); CANNABINOIDS URINE NEGATIVE (NEGATIVE); COCAINE METABOLITE URINE NEGATIVE (NEGATIVE); METHADONE URINE NEGATIVE (NEGATIVE); OPIATES URINE NEGATIVE (NEGATIVE); PHENCYCLIDINE URINE NEGATIVE (NEGATIVE)
[2019-01-27 18:00] VITALS: BP 122/70
[2019-01-27] MEDS: QUEtiapine FUMARATE 200 MG TAB PO SCH (22:26)
[2019-01-27] MEDS: traZODone 50 MG TAB PO SCH (22:27)
[2019-01-28 07:00] VITALS: BP 96/53
[2019-01-28] MEDS: metFORMIN (GLUCOPHAGE) 500 MG TAB PO SCH ×2 (08:54→17:09)
[2019-01-28] MEDS: lamoTRIgine 25 MG TAB PO SCH (09:21)
[2019-01-28] MEDS: DULoxetine 30 MG CAP (CYMBALTA) PO SCH (09:21)
[2019-01-28] MEDS: cloNIDine 0.1 MG TAB PO SCH ×2 (09:22→21:47)
[2019-01-28] MEDS: GABAPENTIN 100 MG CAP PO SCH ×3 (09:22→21:46)
[2019-01-28] MEDS: FERROUS SULFATE 325MG TAB PO SCH ×2 (09:22→21:46)
[2019-01-28] MEDS: hydrOXYzine 50 MG TAB PO SCH ×3 (09:22→21:46)
[2019-01-28] MEDS: PRAVASTATIN 20 MG TAB PO SCH (09:22)
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
[2019-01-28 18:00] VITALS: BP 150/70
[2019-01-28] MEDS: QUEtiapine FUMARATE 200 MG TAB PO SCH (21:46)
[2019-01-28] MEDS: traZODone 50 MG TAB PO SCH (21:46)
[2019-01-29 07:05] VITALS: BP 121/60
[2019-01-29] MEDS: metFORMIN (GLUCOPHAGE) 500 MG TAB PO SCH ×2 (08:50→17:45)
[2019-01-29] MEDS: hydrOXYzine 50 MG TAB PO SCH ×3 (10:00→22:05)
[2019-01-29] MEDS: cloNIDine 0.1 MG TAB PO SCH ×2 (10:01→22:05)
[2019-01-29] MEDS: PRAVASTATIN 20 MG TAB PO SCH (10:01)
[2019-01-29] MEDS: GABAPENTIN 100 MG CAP PO SCH ×3 (10:01→22:04)
[2019-01-29] MEDS: DULoxetine 30 MG CAP (CYMBALTA) PO SCH (10:01)
[2019-01-29] MEDS: lamoTRIgine 100MG TAB PO SCH (10:01)
[2019-01-29] MEDS: FERROUS SULFATE 325MG TAB PO SCH ×2 (10:01→22:05)
--- NOTE | 2019-01-29 13:26 | MHIPN ---
DATE: 01/29/2019 SUBJECTIVE: Patient is still delusional, she thinks that she used drugs on the unit and asking for discharge. OBJECTIVE: She is a 53-year-old female with a history of depression, posttraumatic stress disorder (PTSD), substance abuse disorder who had multiple psychiatric hospitalizations, who was admitted because of suicidal thoughts. Currently she is improving, however, she is delusional. Her Seroquel was increased yesterday. Denies any side effects from the medication. MENTAL STATUS EXAMINATION: Casually dressed with clean clothes. Made good contact. Speech is spontaneous, conversant. Mood is depressed. Affect is constricted. Thought process linear, goal directed. Thought content denied any suicidal or homicidal ideas. Continues to have some vague delusions that the people bring drugs for her on the unit. DIAGNOSES: 1. Major depressive disorder with psychotic features. 2. Post-traumatic stress disorder (PTSD). 3. Alcohol and cocaine dependence. VITAL SIGNS: Temperature 97.2, pulse is 68, respiratory rate is 16, blood pressure is 141/60. MEDICATIONS: - Lamictal 100 mg once daily - quetiapine 400 mg at night - duloxetine 60 mg once daily - trazodone 150 mg at night Continue current medications. Continue individual and group therapy. Needs further hospitalization as patient continues to be delusional and mildly depressed.
[2019-01-29 18:00] VITALS: BP 136/79
[2019-01-29] MEDS: QUEtiapine FUMARATE 200 MG TAB PO SCH (22:04)
[2019-01-29] MEDS: traZODone 50 MG TAB PO SCH (22:05)
[2019-01-30 06:51] VITALS: BP 129/60
[2019-01-30] MEDS: PRAVASTATIN 20 MG TAB PO SCH (09:52)
[2019-01-30] MEDS: hydrOXYzine 50 MG TAB PO SCH ×3 (09:53→21:37)
[2019-01-30] MEDS: lamoTRIgine 100MG TAB PO SCH (09:53)
[2019-01-30] MEDS: FERROUS SULFATE 325MG TAB PO SCH ×2 (09:53→21:38)
[2019-01-30] MEDS: DULoxetine 30 MG CAP (CYMBALTA) PO SCH (09:53)
[2019-01-30] MEDS: cloNIDine 0.1 MG TAB PO SCH ×2 (09:53→21:38)
[2019-01-30] MEDS: GABAPENTIN 100 MG CAP PO SCH ×3 (09:53→21:37)
[2019-01-30] MEDS: metFORMIN (GLUCOPHAGE) 500 MG TAB PO SCH ×2 (09:54→17:12)
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
[2019-01-30 18:30] VITALS: BP 130/74
[2019-01-30] MEDS: traZODone 50 MG TAB PO SCH (21:37)
[2019-01-30] MEDS: QUEtiapine FUMARATE 200 MG TAB PO SCH (21:37)
[2019-01-31 07:01] VITALS: BP 116/58
[2019-01-31] MEDS: PRAVASTATIN 20 MG TAB PO SCH (09:46)
[2019-01-31] MEDS: lamoTRIgine 100MG TAB PO SCH (09:46)
[2019-01-31] MEDS: metFORMIN (GLUCOPHAGE) 500 MG TAB PO SCH ×2 (09:46→17:42)
[2019-01-31] MEDS: DULoxetine 30 MG CAP (CYMBALTA) PO SCH (09:46)
[2019-01-31] MEDS: FERROUS SULFATE 325MG TAB PO SCH ×2 (09:47→22:34)
[2019-01-31] MEDS: GABAPENTIN 100 MG CAP PO SCH ×3 (09:47→22:34)
[2019-01-31] MEDS: hydrOXYzine 50 MG TAB PO SCH ×3 (09:47→22:34)
[2019-01-31] MEDS: cloNIDine 0.1 MG TAB PO SCH ×2 (09:51→22:35)
[2019-01-31 18:38] VITALS: BP 136/66
[2019-01-31] MEDS: traZODone 50 MG TAB PO SCH (22:33)
[2019-01-31] MEDS: QUEtiapine FUMARATE 200 MG TAB PO SCH (22:34)
[2019-02-01 06:37] VITALS: BP 120/55
[2019-02-01] MEDS: metFORMIN (GLUCOPHAGE) 500 MG TAB PO SCH ×2 (07:47→17:22)
[2019-02-01] MEDS: hydrOXYzine 50 MG TAB PO SCH ×3 (09:24→20:17)
[2019-02-01] MEDS: lamoTRIgine 100MG TAB PO SCH (09:24)
[2019-02-01] MEDS: PRAVASTATIN 20 MG TAB PO SCH (09:24)
[2019-02-01] MEDS: FERROUS SULFATE 325MG TAB PO SCH ×2 (09:24→20:18)
[2019-02-01] MEDS: cloNIDine 0.1 MG TAB PO SCH ×2 (09:24→20:17)
[2019-02-01] MEDS: GABAPENTIN 100 MG CAP PO SCH ×3 (09:24→20:18)
[2019-02-01] MEDS: DULoxetine 30 MG CAP (CYMBALTA) PO SCH (09:24)
[2019-02-01 18:28] VITALS: BP 109/50
[2019-02-01] MEDS: QUEtiapine FUMARATE 200 MG TAB PO SCH (20:17)
[2019-02-01] MEDS: traZODone 50 MG TAB PO SCH (20:18)
[2019-02-01] MEDS: ACETAMINOPHEN TAB 650MG DOSE (2X325MG) PO PRN (20:20)
[2019-02-02 07:11] VITALS: BP 131/57
[2019-02-02] MEDS: metFORMIN (GLUCOPHAGE) 500 MG TAB PO SCH ×2 (07:35→17:06)
[2019-02-02] MEDS: GABAPENTIN 100 MG CAP PO SCH ×3 (09:55→21:10)
[2019-02-02] MEDS: PRAVASTATIN 20 MG TAB PO SCH (09:55)
[2019-02-02] MEDS: FERROUS SULFATE 325MG TAB PO SCH ×2 (09:55→21:09)
[2019-02-02] MEDS: cloNIDine 0.1 MG TAB PO SCH ×2 (09:55→21:09)
[2019-02-02] MEDS: lamoTRIgine 100MG TAB PO SCH (09:55)
[2019-02-02] MEDS: DULoxetine 30 MG CAP (CYMBALTA) PO SCH (09:55)
[2019-02-02] MEDS: hydrOXYzine 50 MG TAB PO SCH ×3 (09:55→21:08)
[2019-02-02] MEDS: ACETAMINOPHEN TAB 650MG DOSE (2X325MG) PO PRN (09:57)
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
[2019-02-02 18:00] VITALS: BP 119/58
[2019-02-02] MEDS: traZODone 50 MG TAB PO SCH (21:09)
[2019-02-02] MEDS: QUEtiapine FUMARATE 200 MG TAB PO SCH (21:10)
[2019-02-03 06:53] VITALS: BP 140/79
[2019-02-03] MEDS: metFORMIN (GLUCOPHAGE) 500 MG TAB PO SCH ×2 (07:40→17:08)
[2019-02-03] MEDS: PRAVASTATIN 20 MG TAB PO SCH (09:13)
[2019-02-03] MEDS: FERROUS SULFATE 325MG TAB PO SCH ×2 (09:13→22:01)
[2019-02-03] MEDS: GABAPENTIN 100 MG CAP PO SCH ×3 (09:14→22:01)
[2019-02-03] MEDS: lamoTRIgine 100MG TAB PO SCH (09:14)
[2019-02-03] MEDS: DULoxetine 30 MG CAP (CYMBALTA) PO SCH (09:14)
[2019-02-03] MEDS: hydrOXYzine 50 MG TAB PO SCH ×3 (09:14→22:00)
[2019-02-03] MEDS: cloNIDine 0.1 MG TAB PO SCH ×2 (09:15→22:00)
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
[2019-02-03 18:36] VITALS: BP 113/58
[2019-02-03] MEDS: traZODone 50 MG TAB PO SCH (22:00)
[2019-02-03] MEDS: QUEtiapine FUMARATE 200 MG TAB PO SCH (22:01)
[2019-02-04 07:03] VITALS: BP 122/68
[2019-02-04] MEDS: metFORMIN (GLUCOPHAGE) 500 MG TAB PO SCH (07:47)
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
[2019-02-04] MEDS ORDERED: QUET1TAB9 PO (08:45)
[2019-02-04] MEDS ORDERED: CYMB1CAP5 PO (08:45)
[2019-02-04] MEDS ORDERED: LAMI1TAB7 PO (08:45)
[2019-02-04] MEDS ORDERED: TRAZO50TA PO (08:45)
[2019-02-04] MEDS ORDERED: GABA-1171 PO ×2 (08:45→08:48)
[2019-02-04] MEDS: FERROUS SULFATE 325MG TAB PO SCH (09:26)
[2019-02-04] MEDS: lamoTRIgine 100MG TAB PO SCH (09:26)
[2019-02-04] MEDS: PRAVASTATIN 20 MG TAB PO SCH (09:26)
[2019-02-04] MEDS: GABAPENTIN 100 MG CAP PO SCH (09:26)
[2019-02-04] MEDS: hydrOXYzine 50 MG TAB PO SCH (09:26)
[2019-02-04] MEDS: DULoxetine 30 MG CAP (CYMBALTA) PO SCH (09:26)
[2019-02-04 09:28] VITALS: BP 120/72
[2019-02-04] MEDS: cloNIDine 0.1 MG TAB PO SCH (09:28)
== END 2019-02-04 11:30 | disposition home or self-care (01) | DRG 751 ==
LOC: M ED 12:47 → M ED INP 01-20 15:09 → M PSY 01-20 15:46
PROVIDERS: ADMIT Psychiatry & Neurology Psychiatry; ATTEND Psychiatry & Neurology Psychiatry
DX: F32.3 Major depressive disorder, single episode, severe with psychotic features (principal); R45.851 Suicidal ideations; I11.0 Hypertensive heart disease with heart failure; R45.850 Homicidal ideations; E11.9 Type 2 diabetes mellitus without complications; D50.9 Iron deficiency anemia, unspecified; E78.5 Hyperlipidemia, unspecified; I50.9 Heart failure, unspecified; F10.10 Alcohol abuse, uncomplicated; F14.90 Cocaine use, unspecified, uncomplicated; F43.10 Post-traumatic stress disorder, unspecified; G47.00 Insomnia, unspecified; Z79.899 Other long term (current) drug therapy; Z88.8 Allergy status to other drugs, medicaments and biological substances; Z88.6 Allergy status to analgesic agent; Z91.013 Allergy to seafood

== ENCOUNTER 2019-04-04 21:56 | Emergency (ER) | payer OTHER ==
[~2019-04-04] VITALS: Ht 160 cm; Wt 99.1 kg
[~2019-04-04 21:56] MED LIST changes: +BENZ-52 PO; +CLON-412 PO; +CYMB1CAP5 PO; +DULO1CAP2 PO; +HYDR50TA30; +LAMI1TAB7 PO; +OLAN10TA2 PO; +PRAV40TA2 PO; +QUET1TAB9 PO; +TRAZ-163 PO; +TRAZ1TAB10 PO
[2019-04-04] MEDS ORDERED: NITROGLYCERIN 0.4 MG SUBL TABLET SL PRN (22:30)
[2019-04-04 22:46] LABS: BASO # 0.1 10^3/uL (0.0-0.2); BASO % 0.8 % (0.0-1.0); EOS # 0.3 10^3/uL (0.0-0.50); EOS % 3.8 % (0.0-3.0); HEMATOCRIT 34.2 % (36.0-47.0); HEMOGLOBIN 11.2 g/dl (12.0-15.5); LYMPH # 2.4 10^3/uL (1.5-4.5); LYMPH % 30.4 % (24.0-44.0); MEAN CORPUSCULAR HEMOGLOBIN 25.7 pg (27.0-33.0); MEAN CORPUSCULAR HGB CONC 32.7 g/dl (32.0-36.5); MEAN CORPUSCULAR VOLUME 78.4 fl (80.0-96.0); MONO # 0.6 10^3/uL (0.0-0.8); MONO % 6.9 % (0.0-5.0); NEUTROPHILS # 4.6 10^3/uL (1.8-7.7); NEUTROPHILS % 57.8 % (36.0-66.0); PLATELET COUNT, AUTOMATED 340 10^3/uL (150-450); RED BLOOD COUNT 4.36 10^6/uL (4.00-5.40)
[2019-04-04 22:57] LABS: INR 0.87; PROTHROMBIN TIME 11.9 SECONDS (12.1-14.4)
[2019-04-04 23:16] LABS: ACETAMINOPHEN LEVEL < 2.0 UG/ML (10.0-30.0); ALBUMIN 3.5 GM/DL (3.2-5.2); ALT/SGPT 41 U/L (12-78); BILIRUBIN,DIRECT < 0.1 MG/DL (0.0-0.2); BILIRUBIN,TOTAL 0.2 MG/DL (0.2-1.0); BLOOD UREA NITROGEN 16 MG/DL (7-18); CALCIUM LEVEL 8.7 MG/DL (8.5-10.1); CARBON DIOXIDE LEVEL 28 MEQ/L (21-32); CHLORIDE LEVEL 102 MEQ/L (98-107); CK-MB VALUE MASS < 1.0 NG/ML (<3.6); CPK CREATINE PHOSPHOKINASE 62 U/L (26-192); CREATININE FOR GFR 0.73 MG/DL (0.55-1.30); ETHYL ALCOHOL (ETHANOL) < 0.003 % (0.000-0.010); FREE T4 0.61 NG/DL (0.76-1.46); GLOMERULAR FILTRATION RATE > 60.0 (>51); GLUCOSE, FASTING 167 MG/DL (70-100); HCG, SERUM QUALITATIVE NEGATIVE (NEGATIVE); LIPASE 124 U/L (73-393); MAGNESIUM LEVEL 1.8 MG/DL (1.8-2.4); MB/CK RELATIVE INDEX 1.61 (< OR =4); SALICYLATE LEVEL < 1.7 MG/DL (5.0-30.0); SODIUM LEVEL 138 MEQ/L (136-145); TOTAL PROTEIN 7.1 GM/DL (6.4-8.2); TROPONIN I < 0.02 NG/ML (< 0.10)
[2019-04-05 00:30] VITALS: BP 154/61
[2019-04-05 01:02] LABS: AMPHETAMINES LEVEL URINE NEGATIVE (NEGATIVE); BARBITURATES URINE NEGATIVE (NEGATIVE); BENZODIAZEPINES URINE NEGATIVE (NEGATIVE); CANNABINOIDS URINE NEGATIVE (NEGATIVE); COCAINE METABOLITE URINE NEGATIVE (NEGATIVE); METHADONE URINE NEGATIVE (NEGATIVE); OPIATES URINE NEGATIVE (NEGATIVE); PHENCYCLIDINE URINE NEGATIVE (NEGATIVE)
--- NOTE | 2019-04-05 18:53 | ECGEPIP ---
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
--- NOTE | 2019-04-06 07:34 | REP ---
CHEST, SINGLE VIEW: There is no evidence of acute infiltrate. No pleural effusion is seen. The heart is normal in size. The mediastinal silhouette is unremarkable. The visualized osseous structures are intact. IMPRESSION: No acute pulmonary disease. Electronically Signed by Lamont Valdez MD 04/06/2019 08:32 A
== END 2019-04-05 02:41 | disposition home or self-care (01) ==
LOC: M ED 21:56
DX: R07.89 Other chest pain (principal); I50.9 Heart failure, unspecified; I25.2 Old myocardial infarction; G40.909 Epilepsy, unspecified, not intractable, without status epilepticus; Z79.899 Other long term (current) drug therapy; Z88.8 Allergy status to other drugs, medicaments and biological substances; Z91.018 Allergy to other foods
CPT/HCPCS: 36415; 71045; 80053; 80307; 81001; 82248; 82550; 82553; 83690; 83735; 84439; 84443; 84703; 85025; 85610; 87086; 93005; 93041; 94760; 99285; G0480

== ENCOUNTER 2019-04-11 01:13 | Emergency (ER) | payer OTHER ==
[2019-04-11 02:51] LABS: BLOOD UREA NITROGEN 20 MG/DL (7-18); CARBON DIOXIDE LEVEL 28 MEQ/L (21-32); CHLORIDE LEVEL 104 MEQ/L (98-107); CK-MB VALUE MASS < 1.0 NG/ML (<3.6); CPK CREATINE PHOSPHOKINASE 61 U/L (26-192); GLOMERULAR FILTRATION RATE > 60.0 (>51); GLUCOSE, FASTING 138 MG/DL (70-100); MB/CK RELATIVE INDEX 1.64 (< OR =4); POTASSIUM SERUM 3.9 MEQ/L (3.5-5.1); SODIUM LEVEL 139 MEQ/L (136-145); TROPONIN I < 0.02 NG/ML (< 0.10)
[2019-04-11 06:23] VITALS: BP 160/77
--- NOTE | 2019-04-12 06:50 | ECGEPIP ---
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
== END 2019-04-11 06:24 | disposition home or self-care (01) ==
LOC: M ED 01:13
DX: E11.9 Type 2 diabetes mellitus without complications (principal); R60.0 Localized edema; I11.0 Hypertensive heart disease with heart failure; I50.9 Heart failure, unspecified; F31.9 Bipolar disorder, unspecified; D50.9 Iron deficiency anemia, unspecified; E78.5 Hyperlipidemia, unspecified; Z79.899 Other long term (current) drug therapy; Z88.8 Allergy status to other drugs, medicaments and biological substances; Z91.018 Allergy to other foods; F10.10 Alcohol abuse, uncomplicated; F14.10 Cocaine abuse, uncomplicated

== ENCOUNTER → 2019-05-05 | Outpatient (REF) | payer OTHER ==
[~2019-05-05] MED LIST changes: -DULO1CAP2 PO; +DULO1CAP5 PO
[2019-05-05 16:17] LABS: ALBUMIN 3.8 GM/DL (3.2-5.2); ALT/SGPT 28 U/L (12-78); BILIRUBIN,TOTAL 0.2 MG/DL (0.2-1.0); BLOOD UREA NITROGEN 15 MG/DL (7-18); CALCIUM LEVEL 9.4 MG/DL (8.5-10.1); CARBON DIOXIDE LEVEL 27 MEQ/L (21-32); CHLORIDE LEVEL 102 MEQ/L (98-107); CHOLESTEROL LEVEL 268 MG/DL (<200); CHOLESTEROL RISK RATIO 7.657 (<5); CREATININE FOR GFR 0.72 MG/DL (0.55-1.30); GLOMERULAR FILTRATION RATE > 60.0 (>51); GLUCOSE, FASTING 133 MG/DL (70-100); HDL CHOLESTEROL 35 MG/DL (>40); NON-HDL-C 233 MG/DL; POTASSIUM SERUM 4.5 MEQ/L (3.5-5.1); SODIUM LEVEL 137 MEQ/L (136-145); TOTAL PROTEIN 7.4 GM/DL (6.4-8.2); TRIGLYCERIDES LEVEL 416 MG/DL (<150)
[2019-05-05 18:15] LABS: HEMOGLOBIN A1c 7.8 %
== END ==
LOC: M LAB REF 15:15
PROVIDERS: ATTEND Family Medicine Addiction Medicine
DX: E11.9 Type 2 diabetes mellitus without complications (principal); E78.5 Hyperlipidemia, unspecified

== ENCOUNTER → 2019-05-07 | Outpatient (REF) | payer OTHER ==
[2019-05-12 14:41] LABS: HPV HYBRID CAPTURE II Negative (Negative)
== END ==
LOC: M LAB REF 17:26
PROVIDERS: ATTEND Advanced Practice Midwife
DX: Z12.4 Encounter for screening for malignant neoplasm of cervix (principal)

== ENCOUNTER 2020-01-01 18:49 | Emergency (ER) | payer MEDICAID, OTHER, SELFPAY ==
[~2020-01-01] VITALS: Ht 162.6 cm; Wt 106.8 kg
[~2020-01-01 18:49] MED LIST changes: +HYDR1TAB33 PO; -HYDRO50TAB PO; -QUET1TAB9 PO; +QUET200T2 PO; -TRAZ-163 PO; +TRAZ-257 PO
[2020-01-01 19:29] LABS: VENOUS BASE EXCESS 1.6 (-2.0-2.0); VENOUS HCO3 27.8 MEQ/L (23.0-27.0); VENOUS O2 SATURATION 93.5 % (60.0-80.0); VENOUS PARTIAL PRESSURE CO2 50.1 mmHg (38.0-50.0); VENOUS PARTIAL PRESSURE O2 72.9 mmHg (30.0-50.0); VENOUS PH 7.362 UNITS (7.330-7.430); VENOUS STANDARD HCO3 25.8 MEQ/L; VENOUS TOTAL CO2 29.3 MEQ/L (24.0-28.0)
[2020-01-01 19:30] LABS: BASO # 0.1 10^3/uL (0.0-0.2); BASO % 0.7 % (0.0-1.0); EOS # 0.3 10^3/uL (0.0-0.5); EOS % 4.2 % (0.0-3.0); HEMATOCRIT 37.1 % (36.0-47.0); HEMOGLOBIN 12.1 g/dl (12.0-15.5); LYMPH # 1.8 10^3/uL (1.5-5.0); LYMPH % 25.4 % (24.0-44.0); MEAN CORPUSCULAR HEMOGLOBIN 26.8 pg (27.0-33.0); MEAN CORPUSCULAR HGB CONC 32.6 g/dl (32.0-36.5); MEAN CORPUSCULAR VOLUME 82.3 fl (80.0-96.0); MONO # 0.5 10^3/uL (0.0-0.8); MONO % 6.3 % (0.0-5.0); NEUTROPHILS # 4.5 10^3/uL (1.5-8.5); NEUTROPHILS % 62.6 % (36.0-66.0); PLATELET COUNT, AUTOMATED 329 10^3/uL (150-450); RED BLOOD COUNT 4.51 10^6/uL (4.00-5.40); WHITE BLOOD COUNT 7.2 10^3/uL (4.0-10.0)
[2020-01-01] MEDS ORDERED: NS 1,000 ML IV ONE (19:30)
[2020-01-01] MEDS ORDERED: MECLIZINE 25 MG TABLET PO ONE (19:30)
[2020-01-01 19:43] LABS: ALBUMIN 3.8 GM/DL (3.2-5.2); ALT/SGPT 32 U/L (12-78); BILIRUBIN,DIRECT < 0.1 MG/DL (0.0-0.2); BILIRUBIN,TOTAL 0.2 MG/DL (0.2-1.0); BLOOD UREA NITROGEN 10 MG/DL (7-18); CALCIUM LEVEL 9.1 MG/DL (8.5-10.1); CARBON DIOXIDE LEVEL 30 MEQ/L (21-32); CHLORIDE LEVEL 99 MEQ/L (98-107); CREATININE FOR GFR 0.72 MG/DL (0.55-1.30); GLOMERULAR FILTRATION RATE > 60.0 (>51); GLUCOSE, FASTING 268 MG/DL (70-100); SODIUM LEVEL 136 MEQ/L (136-145); TOTAL PROTEIN 7.5 GM/DL (6.4-8.2)
[2020-01-01 20:01] LABS: HEMOGLOBIN A1c 8.2 %
--- NOTE | 2020-01-01 20:11 | REPVR ---
PROCEDURE INFORMATION: Exam: CT Head Without Contrast Exam date and time: 01/01/2020 7:22 PM Age: 54 years old Clinical indication: Dizziness TECHNIQUE: Imaging protocol: Computed tomography of the head without contrast. Radiation optimization: All CT scans at this facility use at least one of these dose optimization techniques: automated exposure control; mA and/or kV adjustment per patient size (includes targeted exams where dose is matched to clinical indication); or iterative reconstruction. COMPARISON: No relevant prior studies available. FINDINGS: Brain: Normal. No hemorrhage. Unremarkable white matter. No mass effect. Ventricles: Normal. No ventriculomegaly. Bones/joints: Unremarkable. No acute fracture. Sinuses: Visualized sinuses are unremarkable. No fluid levels. Mastoid air cells: Visualized mastoid air cells are well aerated. Soft tissues: Unremarkable. IMPRESSION: No acute intracranial abnormality. Electronically signed by: Travis Nails On 01/01/2020 20:10:41 PM
[2020-01-01 20:35] LABS: VENOUS BASE EXCESS 3.4 (-2.0-2.0); VENOUS HCO3 29.7 MEQ/L (23.0-27.0); VENOUS O2 SATURATION 87.5 % (60.0-80.0); VENOUS PARTIAL PRESSURE CO2 52.5 mmHg (38.0-50.0); VENOUS PARTIAL PRESSURE O2 57.8 mmHg (30.0-50.0); VENOUS STANDARD HCO3 27.3 MEQ/L; VENOUS TOTAL CO2 31.3 MEQ/L (24.0-28.0)
[2020-01-01 20:36] LABS: HCG, SERUM QUALITATIVE NEGATIVE (NEGATIVE)
[2020-01-01] MEDS ORDERED: NITROFURANTOIN (MACROBID) 100 MG CAP PO ONE (21:30)
[2020-01-01] MEDS ORDERED: MACR100C43 PO ×2 (21:32→21:56)
[2020-01-01] MEDS ORDERED: MECL1TAB31 PO ×2 (21:32→21:56)
[2020-01-01 21:39] VITALS: BP 129/72
== END 2020-01-01 21:58 | disposition home or self-care (01) ==
LOC: M ED 18:49
DX: R42 Dizziness and giddiness (principal); N39.0 Urinary tract infection, site not specified; I50.9 Heart failure, unspecified; I25.2 Old myocardial infarction; E11.9 Type 2 diabetes mellitus without complications; I10 Essential (primary) hypertension; G40.909 Epilepsy, unspecified, not intractable, without status epilepticus; F41.9 Anxiety disorder, unspecified; F32.9 Major depressive disorder, single episode, unspecified; F43.10 Post-traumatic stress disorder, unspecified; Z86.73 Personal history of transient ischemic attack (TIA), and cerebral infarction without residual deficits; Z95.4 Presence of other heart-valve replacement; Z79.84 Long term (current) use of oral hypoglycemic drugs; Z79.899 Other long term (current) drug therapy; Z88.6 Allergy status to analgesic agent; Z88.8 Allergy status to other drugs, medicaments and biological substances; Z91.013 Allergy to seafood

== ENCOUNTER 2020-01-03 13:53 | Emergency (ER) | payer MEDICAID, OTHER ==
[~2020-01-03] VITALS: Ht 162.6 cm; Wt 112.2 kg
[~2020-01-03 13:53] MED LIST changes: +MACR100C43 PO; +MECL1TAB31 PO
[2020-01-03] MEDS ORDERED: MECL-86 (14:01)
[2020-01-03] MEDS ORDERED: GABAPENTIN 300 MG CAP PO ONE (15:45)
[2020-01-03] MEDS ORDERED: ACETAMINOPHEN 650MG ER TAB (TYLENOL ARTHRITIS) PO PRN (15:45)
[2020-01-03] MEDS ORDERED: DICLOFENAC EPOLAMINE 1.3 % PATCH TOP SCH (15:45)
[2020-01-03] MEDS ORDERED: DICL1KIT TD ×2 (17:23→17:37)
[2020-01-03] MEDS ORDERED: TYLE650T35 PO ×2 (17:23→17:37)
[2020-01-03 17:40] VITALS: BP 142/85
--- NOTE | 2020-01-04 08:35 | REP ---
AP and lateral views of the cervical spine were obtained due to neck pain without trauma. Limited examination shows degenerative changes, particularly on the left with mild disc space narrowing throughout. There is a minimal 2 mm anterolisthesis of C4 on C5. IMPRESSION: Chronic changes seen on this limited exam. Electronically Signed by Geo Rolle DO 01/04/2020 01:32 P
--- NOTE | 2020-01-04 08:35 | REP ---
REASON: Chronic changes. No trauma. COMPARISON: None. FINDINGS: Three views of the thoracic spine were obtained. The disc spaces are symmetric and relatively well maintained. There is no acute fracture or destructive osseous lesion. Electronically Signed by Geo Rolle DO 01/04/2020 01:31 P
--- NOTE | 2020-01-04 08:36 | REP ---
AP and lateral views of the lumbar spine were obtained. Vertebral body height and alignment was within normal limits. The disc spaces are symmetric and well maintained. The pedicles are intact bilaterally. IMPRESSION: No abnormality noted on this limited exam. Electronically Signed by Geo Rolle DO 01/04/2020 01:32 P
[2020-01-04] MEDS ORDERED: GLIP5TAB8 PO (14:56)
[2020-01-04] MEDS ORDERED: CYMB60CA3 PO (14:56)
[2020-01-04] MEDS ORDERED: MACR100C43 PO (14:56)
[2020-01-04] MEDS ORDERED: MECL1TAB31 PO (14:56)
[2020-01-04] MEDS ORDERED: SERO1TAB2 PO (14:56)
[2020-01-04] MEDS ORDERED: SIMV20TA22 PO (14:56)
[2020-01-04] MEDS ORDERED: METO25TA4 PO (14:56)
[2020-01-04] MEDS ORDERED: PRAZ2CAP PO (14:56)
[2020-01-04] MEDS ORDERED: TRAZ-257 PO (14:56)
[2020-01-04] MEDS ORDERED: LAMI1TAB8 PO (14:56)
[2020-01-04] MEDS ORDERED: GABA-843 PO (14:56)
[2020-01-04] MEDS ORDERED: VOLT1GEL15 TOP (14:56)
== END 2020-01-03 17:45 | disposition home or self-care (01) ==
LOC: M ED 13:53
DX: G89.29 Other chronic pain (principal); M54.5 Low back pain; M54.6 Pain in thoracic spine; M50.30 Other cervical disc degeneration, unspecified cervical region; M43.12 Spondylolisthesis, cervical region; Z88.6 Allergy status to analgesic agent; Z91.013 Allergy to seafood; Z79.83 Long term (current) use of bisphosphonates; Z79.899 Other long term (current) drug therapy

== ENCOUNTER 2020-01-04 11:22 | Inpatient (IN) | payer MEDICAID ==
[~2020-01-04] VITALS: Ht 162.6 cm; Wt 112.0 kg
[~2020-01-04 11:22] MED LIST changes: +DICL1KIT TD; +MECL-86; +TYLE650T35 PO
[2020-01-04 12:21] LABS: HEMATOCRIT 37.1 % (36.0-47.0); HEMOGLOBIN 12.6 g/dl (12.0-15.5); MEAN CORPUSCULAR HEMOGLOBIN 27.6 pg (27.0-33.0); MEAN CORPUSCULAR VOLUME 81.2 fl (80.0-96.0); PLATELET COUNT, AUTOMATED 343 10^3/uL (150-450); RED BLOOD COUNT 4.57 10^6/uL (4.00-5.40)
[2020-01-04 12:43] LABS: AMPHETAMINES LEVEL URINE NEGATIVE (NEGATIVE); BARBITURATES URINE NEGATIVE (NEGATIVE); BENZODIAZEPINES URINE NEGATIVE (NEGATIVE); CANNABINOIDS URINE NEGATIVE (NEGATIVE); COCAINE METABOLITE URINE NEGATIVE (NEGATIVE); METHADONE URINE NEGATIVE (NEGATIVE); OPIATES URINE NEGATIVE (NEGATIVE); PHENCYCLIDINE URINE NEGATIVE (NEGATIVE)
[2020-01-04 12:56] LABS: ACETAMINOPHEN LEVEL < 2.0 UG/ML (10.0-30.0); ALBUMIN 3.9 GM/DL (3.2-5.2); ALT/SGPT 34 U/L (12-78); BILIRUBIN,DIRECT 0.1 MG/DL (0.0-0.2); BILIRUBIN,TOTAL 0.4 MG/DL (0.2-1.0); BLOOD UREA NITROGEN 12 MG/DL (7-18); CALCIUM LEVEL 9.5 MG/DL (8.5-10.1); CARBON DIOXIDE LEVEL 27 MEQ/L (21-32); CHLORIDE LEVEL 103 MEQ/L (98-107); CREATININE FOR GFR 0.75 MG/DL (0.55-1.30); ETHYL ALCOHOL (ETHANOL) < 0.003 % (0.000-0.010); GLOMERULAR FILTRATION RATE > 60.0 (>51); GLUCOSE, FASTING 151 MG/DL (70-100); POTASSIUM SERUM 4.2 MEQ/L (3.5-5.1); SALICYLATE LEVEL < 1.7 MG/DL (5.0-30.0); SODIUM LEVEL 137 MEQ/L (136-145); TOTAL PROTEIN 7.6 GM/DL (6.4-8.2)
[2020-01-04] MEDS ORDERED: VOLT1GEL15 TOP (14:56)
[2020-01-04] MEDS ORDERED: CYMB60CA3 PO (14:56)
[2020-01-04] MEDS ORDERED: GABA-843 PO (14:56)
[2020-01-04] MEDS ORDERED: PRAZ2CAP PO (14:56)
[2020-01-04] MEDS ORDERED: TRAZ-257 PO (14:56)
[2020-01-04] MEDS ORDERED: LAMI1TAB8 PO (14:56)
[2020-01-04] MEDS ORDERED: GLIP5TAB8 PO (14:56)
[2020-01-04] MEDS ORDERED: SERO1TAB2 PO (14:56)
[2020-01-04] MEDS ORDERED: MECL1TAB31 PO (14:56)
[2020-01-04] MEDS ORDERED: SIMV20TA22 PO (14:56)
[2020-01-04] MEDS ORDERED: METO25TA4 PO (14:56)
[2020-01-04] MEDS ORDERED: MACR100C43 PO (14:56)
[2020-01-04] MEDS ORDERED: MAALOX 30 ML SUSP *UDC PO PRN (15:00)
[2020-01-04] MEDS ORDERED: traZODone 50 MG TAB PO PRN (15:00)
[2020-01-04] MEDS ORDERED: MECLIZINE 25 MG TABLET PO PRN (15:00)
[2020-01-04] MEDS ORDERED: MOM 30ML SUSPENSION UDC PO PRN (15:00)
[2020-01-04] MEDS ORDERED: PILL CUTTER 1 EACH XX PRN (15:30)
[2020-01-04] MEDS: GABAPENTIN 300 MG CAP PO SCH ×2 (16:00→20:48)
[2020-01-04 18:48] VITALS: BP 141/61
[2020-01-04] MEDS: PRAZOSIN 1 MG CAP PO SCH (20:47)
[2020-01-04] MEDS: traZODone 100 MG TAB PO SCH (20:47)
[2020-01-04] MEDS: SIMVASTATIN 20 MG TAB PO SCH (20:48)
[2020-01-04] MEDS: METOPROLOL TART 25 MG TABLET PO SCH (20:48)
[2020-01-04] MEDS ORDERED: NITROFURANTOIN (MACROBID) 100 MG CAP PO ONE (21:00)
[2020-01-04] MEDS ORDERED: QUEtiapine FUMARATE 100 MG TAB PO SCH (21:00)
[2020-01-05 06:24] VITALS: BP 144/68
[2020-01-05] MEDS: lamoTRIgine 100MG TAB PO SCH (09:08)
[2020-01-05] MEDS: glipiZIDE (GLUCOTROL) 5 MG TAB PO SCH (09:09)
[2020-01-05] MEDS: GABAPENTIN 300 MG CAP PO SCH ×3 (09:09→20:52)
[2020-01-05] MEDS: DULoxetine 30 MG CAP (CYMBALTA) PO SCH (09:09)
[2020-01-05] MEDS: METOPROLOL TART 25 MG TABLET PO SCH ×2 (09:10→20:52)
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
[2020-01-05 16:03] VITALS: BP 125/61
[2020-01-05] MEDS: traZODone 100 MG TAB PO SCH (20:52)
[2020-01-05] MEDS: PRAZOSIN 1 MG CAP PO SCH (20:52)
[2020-01-05] MEDS: SIMVASTATIN 20 MG TAB PO SCH (20:52)
[2020-01-05] MEDS: ACETAMINOPHEN TAB 650MG DOSE (2X325MG) PO PRN (20:55)
[2020-01-05] MEDS ORDERED: QUEtiapine FUMARATE 200 MG TAB PO SCH (21:00)
[2020-01-06 06:25] VITALS: BP 141/83
[2020-01-06] MEDS: glipiZIDE (GLUCOTROL) 5 MG TAB PO SCH (08:42)
[2020-01-06] MEDS: GABAPENTIN 300 MG CAP PO SCH (08:42)
[2020-01-06] MEDS: lamoTRIgine 100MG TAB PO SCH (08:42)
[2020-01-06] MEDS: DULoxetine 30 MG CAP (CYMBALTA) PO SCH (08:42)
[2020-01-06 08:44] VITALS: BP 129/60
[2020-01-06] MEDS: METOPROLOL TART 25 MG TABLET PO SCH (08:44)
[2020-01-06] MEDS: ACETAMINOPHEN TAB 650MG DOSE (2X325MG) PO PRN (10:22)
--- NOTE | 2020-01-06 10:50 | MHDSPDOC ---
[facility] Discharge Summary Discharge Summary DATE OF ADMISSION: Jan 04, 2020 at 14:53 DATE OF DISCHARGE: 01/06/20 Discharge Iris Melton MRN: N/A Date of : N/A Date of Service: 01/06/2020 Diagnoses Unspecified depressive disorder, Concern for fabrication versus adjustment/secondary gain. Alcohol use disorder, severe, in sustained remission. Cocaine use disorder, severe, in sustained remission. Opioid use disorder, severe, in sustained remission. Cannabis use disorder, unspecified. Concern for malingering. History of Present Illness The patient, a 53-year-old woman with a long history of substance use and multiple admissions to our inpatient mental health unit, presents reportedly depressed, however, when she met with me she reported that she felt dizzy from her Seroquel and had cut it in half from 600 to 300. She reports that she has vague symptoms of PTSD, but she is not able to describe any in detail. She reports symptoms of depression and hopelessness, but is unable to elaborate any further if not directly prompted. The patient has a reported history of some psychotic like symptoms. The patient reported that she generally wanted to see if her medications would make her dizzy and wanted a referral to TLS, but had little interest in other treatment. Consultants Involved Hospitalist/PCP screening Treatment and Progress On The Unit The patient was admitted to the inpatient mental health unit on a voluntary status, she was resumed on her Seroquel 600 mg to determine if she would become dizzy, she demonstrated no dizziness and tolerated the medication well. The treatment team was concerned primarily that the patient was presenting as she was likely malingering for a referral to TLS. She was euthymic upon first visit with no suicidality, after discussion the patient decided that once she was feeling good on her medications that she wished to be discharged. She attended groups and was generally compliant with no behavioral problems. Discharge Assessment 53-year-old woman with a long history of inpatient admissions, presents again likely malingering for housing after blowing off a [facility] appointment after she has returned from [place], she does well on the unit with little if no issues after being resumed on her home Seroquel. The patient at the time of discharge did not meet criteria for involuntary admission/extension due to having a normal mental status exam, fair insight into the situation, They are engaged in the discharge process, as well as being friendly and amenable in behavioral control and havent been engaging in any observed concerning behavior or ideation recently. They decline voluntary extension/admission at this time and must be discharged in good yvonne, as Im unable to make a case for holding the patient against their will. They may have historical risk factors of admissions and other interactions with psychiatry however, those are not modifiable from a clinical perspective. The patient will need to be discharged in good yvonne. Mental Status Examination General: Well dressed with good hygiene Speech: Spontaneous and fluid Thought processes: Linear and logical MSK: Smooth and coordinated gait, no signs of tremors or involuntary orofacial movements Thought content: Future orientated Abstract reasoning, and computation: Intact Description of associations: Intact Description of abnormal or psychotic thoughts: Denies any suicidal or homicidal ideation. Denies any auditory or visual hallucinations. Does not appear to be responding to internal stimuli. Does not appear to be endorsing any bizarre or paranoid ideation. Judgment: fair Insight: fair Orientation: Alert and orientated 3 Cognition: Grossly normal Recent and remote memory: Intact Attention span and concentration: Intact Fund of knowledge: Adequate Mood: "okay" Affect: Euthymic with a full range Follow Up The social work team worked during the predischarge meeting in order to evaluate for further issues of lethality address them fully before discharge. They worked on safety planning with the patient's family members in order to ensure that the patient will have a safe and effective discharge. Time Spent The amount of time spent in the coordination of care for this patient was approximately 40 minutes. Saturday Vital Signs/I&Os Vital Signs Date Time Temp Pulse Resp B/P (MAP) Pulse Ox O2 Delivery O2 Flow Rate FiO2 01/06/20 08:44 96 129/60 01/06/20 06:25 97.3 18 01/04/20 18:48 95 Room Air Laboratory Data CBC/BMP Laboratory Tests 01/06/20 06:44 Medications Scheduled Duloxetine Hcl (Cymbalta) 60 Mg Capsule.dr, 60 MG PO DAILY, (Reported) Gabapentin (Gabapentin) 300 Mg Capsule, 300 MG PO TID, (Reported) Glipizide (Glipizide) 5 Mg Tablet, 5 MG PO DAILY for DM for 7 Days, #7 Lamotrigine (Lamictal) 150 Mg Tablet, 150 MG PO DAILY, (Reported) Metoprolol Tartrate (Metoprolol Tartrate) 25 Mg Tablet, 25 MG PO BID, (Reported) Nitrofurantoin Monohyd/M-Cryst (Macrobid 100 mg Capsule) 100 Mg Capsule, 100 MG PO BID, (Reported) for 5 days started 01/01/20 Prazosin Hcl (Prazosin HCl) 2 Mg Capsule, 2 MG PO QHS, (Reported) Quetiapine Fumarate (Quetiapine Fumarate) 200 Mg Tablet, 600 MG PO QHS for mood for 7 Days, #21 Simvastatin (Simvastatin) 20 Mg Tablet, 20 MG PO QPM, (Reported) Trazodone HCl (Trazodone HCl) 100 Mg Tablet, 100 MG PO QHS, (Reported) Scheduled PRN Diclofenac Sodium (Voltaren) 100 Gm Gel..gram., 1 DOSE TOP BID PRN for PAIN, (Reported) lower back Meclizine HCl (Meclizine HCl) 25 Mg Tablet, 25 MG PO Q8H PRN for DIZZINESS, (Reported) Allergies Coded Allergies: NSAIDS (Non-Steroidal Anti-Inflamma (Verified Allergy, Mild, STOMACH UPSET, 04/04/19) ibuprofen (Verified Allergy, Mild, STOMACH UPSET, 04/04/19) naproxen (Verified Allergy, Mild, CAN TAKE ASPIRIN, 04/04/19) shellfish derived (Verified Allergy, Unknown, 04/04/19) haloperidol (Verified Adverse Reaction, Severe, RASH AND INABILITY TO RELAX MUSCLES. EPS., 04/04/19) BERNABE MARSH DO Jan 06, 2020 10:50
[2020-01-06] MEDS ORDERED: QUET200T2 PO (11:14)
[2020-01-06] MEDS ORDERED: FORA1KIT XX (12:05)
[2020-01-06] MEDS ORDERED: GLIP5TAB8 PO (12:05)
[2020-01-06] MEDS ORDERED: BLOO-76 MC (12:34)
== END 2020-01-06 13:10 | disposition home or self-care (01) | DRG 754 ==
LOC: M ED 11:22 → M ED INP 14:53 → M PSY 17:07
PROVIDERS: ADMIT Psychiatry & Neurology Addiction Medicine; ATTEND Psychiatry & Neurology Addiction Medicine
DX: F32.9 Major depressive disorder, single episode, unspecified (principal); G40.802 Other epilepsy, not intractable, without status epilepticus; I10 Essential (primary) hypertension; E11.9 Type 2 diabetes mellitus without complications; F12.90 Cannabis use, unspecified, uncomplicated; Z76.5 Malingerer [conscious simulation]; F11.90 Opioid use, unspecified, uncomplicated; F14.90 Cocaine use, unspecified, uncomplicated; F10.10 Alcohol abuse, uncomplicated; Z79.899 Other long term (current) drug therapy; Z88.6 Allergy status to analgesic agent; Z88.8 Allergy status to other drugs, medicaments and biological substances; Z91.013 Allergy to seafood; I25.2 Old myocardial infarction; E03.9 Hypothyroidism, unspecified; Z95.2 Presence of prosthetic heart valve; M79.7 Fibromyalgia; M54.5 Low back pain

== ENCOUNTER 2020-01-14 19:39 | Emergency (ER) | payer OTHER, MEDICAID ==
[~2020-01-14] VITALS: Ht 162.6 cm; Wt 111.1 kg
[~2020-01-14 19:39] MED LIST changes: +BLOO-76 MC; +CYMB60CA3 PO; +FORA1KIT XX; +GLIP5TAB8 PO; +LAMI1TAB8 PO; +METO25TA4 PO; +PRAZ2CAP PO; +SERO1TAB2 PO; +SIMV20TA22 PO; +VOLT1GEL15 TOP
[2020-01-14] MEDS ORDERED: ADACEL/BOOSTRIX VACCINE (DIPHTH/PERTUSS/ACELL/TETANUS)0.5ML SYR (90715) IM ONE (20:45)
[2020-01-14 22:55] VITALS: BP 136/89
== END 2020-01-14 23:09 | disposition home or self-care (01) ==
LOC: M ED 19:39
DX: Z71.1 Person with feared health complaint in whom no diagnosis is made (principal); W53.19XA Other contact with rat, initial encounter; Y92.59 Other trade areas as the place of occurrence of the external cause; Z95.4 Presence of other heart-valve replacement; Z88.6 Allergy status to analgesic agent; Z91.013 Allergy to seafood

== ENCOUNTER 2020-01-15 01:40 | Emergency (ER) | payer OTHER, MEDICAID ==
[2020-01-15 01:43] VITALS: BP 109/50
== END 2020-01-15 02:25 | disposition home or self-care (01) ==
LOC: M ED 01:40
DX: Z71.1 Person with feared health complaint in whom no diagnosis is made (principal); W53.19XA Other contact with rat, initial encounter; Y92.59 Other trade areas as the place of occurrence of the external cause; F19.10 Other psychoactive substance abuse, uncomplicated; Z95.4 Presence of other heart-valve replacement; Z88.6 Allergy status to analgesic agent; Z91.013 Allergy to seafood; Z79.899 Other long term (current) drug therapy

== ENCOUNTER 2020-01-26 12:23 | Inpatient (IN) | payer MEDICAID, OTHER ==
[~2020-01-26] VITALS: Ht 162.6 cm; Wt 108.5 kg
[2020-01-26 14:34] LABS: ACETAMINOPHEN LEVEL < 2.0 UG/ML (10.0-30.0); ALBUMIN 3.9 GM/DL (3.2-5.2); ALT/SGPT 29 U/L (12-78); BILIRUBIN,DIRECT < 0.1 MG/DL (0.0-0.2); BILIRUBIN,TOTAL 0.4 MG/DL (0.2-1.0); BLOOD UREA NITROGEN 14 MG/DL (7-18); CALCIUM LEVEL 9.1 MG/DL (8.5-10.1); CARBON DIOXIDE LEVEL 26 MEQ/L (21-32); CHLORIDE LEVEL 105 MEQ/L (98-107); CREATININE FOR GFR 0.76 MG/DL (0.55-1.30); ETHYL ALCOHOL (ETHANOL) < 0.003 % (0.000-0.010); GLOMERULAR FILTRATION RATE > 60.0 (>51); GLUCOSE, FASTING 133 MG/DL (70-100); POTASSIUM SERUM 4.1 MEQ/L (3.5-5.1); SALICYLATE LEVEL < 1.7 MG/DL (5.0-30.0); SODIUM LEVEL 139 MEQ/L (136-145); TOTAL PROTEIN 7.6 GM/DL (6.4-8.2)
[2020-01-26 14:41] LABS: HEMATOCRIT 41.2 % (36.0-47.0); HEMOGLOBIN 13.4 g/dl (12.0-15.5); MEAN CORPUSCULAR HEMOGLOBIN 27.2 pg (27.0-33.0); MEAN CORPUSCULAR HGB CONC 32.5 g/dl (32.0-36.5); MEAN CORPUSCULAR VOLUME 83.7 fl (80.0-96.0); PLATELET COUNT, AUTOMATED 342 10^3/uL (150-450); RED BLOOD COUNT 4.92 10^6/uL (4.00-5.40); WHITE BLOOD COUNT 5.8 10^3/uL (4.0-10.0)
[2020-01-26] MEDS ORDERED: LORazepam 2 MG TAB PO STA (15:18)
[2020-01-26] MEDS ORDERED: DICL1GEL3 TOP ×2 (17:30→17:43)
[2020-01-26] MEDS ORDERED: GLIP5TAB8 PO (17:30)
[2020-01-26] MEDS ORDERED: QUET200T2 PO (17:30)
[2020-01-26] MEDS ORDERED: DULO30CA9 PO (17:33)
[2020-01-26] MEDS ORDERED: med rec comment (17:51)
[2020-01-26] MEDS ORDERED: MOM 30ML SUSPENSION UDC PO PRN (18:00)
[2020-01-26] MEDS ORDERED: MAALOX 30 ML SUSP *UDC PO PRN (18:00)
[2020-01-26] MEDS ORDERED: ACETAMINOPHEN TAB 650MG DOSE (2X325MG) PO PRN (18:00)
[2020-01-26] MEDS ORDERED: MECLIZINE 25 MG TABLET PO PRN (18:00)
[2020-01-26 18:47] LABS: AMPHETAMINES LEVEL URINE NEGATIVE (NEGATIVE); BARBITURATES URINE NEGATIVE (NEGATIVE); BENZODIAZEPINES URINE NEGATIVE (NEGATIVE); CANNABINOIDS URINE NEGATIVE (NEGATIVE); COCAINE METABOLITE URINE NEGATIVE (NEGATIVE); METHADONE URINE NEGATIVE (NEGATIVE); OPIATES URINE NEGATIVE (NEGATIVE); PHENCYCLIDINE URINE NEGATIVE (NEGATIVE)
[2020-01-26] MEDS: QUEtiapine FUMARATE 200 MG TAB PO SCH (21:21)
[2020-01-26] MEDS: PRAZOSIN 1 MG CAP PO SCH (21:21)
[2020-01-26] MEDS: traZODone 100 MG TAB PO SCH (21:21)
[2020-01-26] MEDS: SIMVASTATIN 20 MG TAB PO SCH (21:21)
[2020-01-26] MEDS: GABAPENTIN 300 MG CAP PO SCH (21:21)
[2020-01-26] MEDS: METOPROLOL TART 25 MG TABLET PO SCH (21:22)
[2020-01-26 21:23] VITALS: BP 140/94
[2020-01-27 06:26] VITALS: BP 107/64
[2020-01-27] MEDS: METOPROLOL TART 25 MG TABLET PO SCH ×2 (09:01→20:58)
[2020-01-27] MEDS: glipiZIDE (GLUCOTROL) 5 MG TAB PO SCH (09:01)
[2020-01-27] MEDS: DULoxetine 30 MG CAP (CYMBALTA) PO SCH (09:01)
[2020-01-27] MEDS: GABAPENTIN 300 MG CAP PO SCH ×3 (09:02→20:58)
[2020-01-27] MEDS: lamoTRIgine 100MG TAB PO SCH (09:02)
--- NOTE | 2020-01-27 10:03 | MHHPEPDOC ---
[facility] History & Physical History and Physical DATE OF ADMISSION: Jan 26, 2020 at 17:50 New Patient Iris Melton MRN: N/A Date of : N/A Date of Service: 01/27/2020 Chief Complaint "I didn't have my medication." History of Present Illness The patient, a well-known 54-year-old woman, presents reportedly after experiencing "psychosis", she had been notably relapsing on alcohol and a number of other medications including stimulants and cannabis, she reports that she presented due to feeling worse and had not been taking her medications. The patient has a notable history of malingering especially for housing on our unit. She quickly resolved from her psychosis in the ER and when she was met with she reported no major changes in her symptoms since she had been restarted on her home medications. She reported that she relapsed on drugs especially when she wasn't able to take her medications as effectively. Psychosocial information taken from previous admission extracted and updated as appropriate with patient. Review Of Systems Depression: No changes. Anxiety: No changes. Alexia: No Changes. Psychotic: As above. Trauma: No changes. Borderline: No changes. Past Psychiatric History The patient reports no history of psychiatric admissions, medication trials or current follow up. Allergies Please see below. Family Psychiatric History The patient denies/is unaware any history of mental health history including addictions and suicide. Social History Substance Abuse History The patient denies any excessive alcohol use, tobacco or illicit drug use, denies history of substance use treatment. Medical History Patient has no significant past medical history. Mental Status Examination General: Well dressed with good hygiene Speech: Spontaneous and fluid Thought processes: Linear and logical MSK: Smooth and coordinated gait, no signs of tremors or involuntary orofacial movements Thought content: Perseverative on admission. Abstract reasoning, and computation: Intact Description of associations: Intact Description of abnormal or psychotic thoughts: Denies any suicidal or homicidal ideation. Denies any auditory or visual hallucinations. Does not appear to be responding to internal stimuli. Does not appear to be endorsing any bizarre or paranoid ideation. Judgment: Chronically limited. Insight: Chronically limited. Orientation: Alert and orientated 3 Cognition: Grossly normal Recent and remote memory: Intact Attention span and concentration: Intact Fund of knowledge: Adequate Mood: "okay" Affect: Euthymic with a full range Diagnoses Unspecified psychotic disorder. Substance induced. Alcohol use disorder, severe, in sustained remission. Cocaine use disorder, severe, in sustained remission. Opioid use disorder, severe, in sustained remission. Cannabis use disorder, unspecified. Concern for malingering. Assessment and Plan Unspecified psychotic disorder: Continue home medications including Seroquel., monitor for rash, since rapid restart of lamictal, discussed with patient at length Alcohol use disorder: ELIJAHHI protocol. Opioid use disorder/cocaine usage cannabis use: Recommend outpatient rehab. Disposition We will continue patient admission, observe and potentially discharge tomorrow if she meets involuntary criteria, if not will convert to voluntary for treatment. Problem List 1. Altered thoughts. 2. Substance use. Initial Treatment Plan 1. Patient was admitted on a 9.39 legal status. 2. Complete history was obtained. 3. With patients permission, family will be contacted and database will be expanded. 4. Patients medication regimen will be reviewed and changed accordingly. 5. Patient will be provided with protected environment. 6. Patient will be treated with individual, group, and milieu therapies. 7. Patient will receive supportive psych-education. 8. Discharge planning will commence immediately. 9. Outpatient follow-up treatment will be strongly recommended. 10. The initial treatment plan will focus initially on: Estimated Length Of Stay Three days. Time Spent 70 minutes with greater than 50% of time spent on counseling/coordination of care. Saturday Vital Signs Vital Signs Date Time Temp Pulse Resp B/P (MAP) Pulse Ox O2 Delivery O2 Flow Rate FiO2 01/27/20 09:01 89 107/64 01/27/20 06:26 97.6 14 97 Room Air Laboratory Data 24H Labs Laboratory Tests 2 01/26/20 14:31: Nucleated Red Blood Cells % (auto) 0.0, Anion Gap 8, Glomerular Filtration Rate > 60.0, Calcium Level 9.1, Total Bilirubin 0.4, Direct Bilirubin < 0.1, Aspartate Amino Transf (AST/SGOT) 15, Alanine Aminotransferase (ALT/SGPT) 29, Alkaline Phosphatase 125H, Total Protein 7.6, Albumin 3.9, Albumin/Globulin Ratio 1.05, Thyroid Stimulating Hormone (TSH) 1.760, Salicylates Level < 1.7L, Acetaminophen Level < 2.0L, Ethyl Alcohol Level < 0.003 01/26/20 18:09: Urine Opiates Screen NEGATIVE, Urine Methadone Screen NEGATIVE, Urine Barbiturates Screen NEGATIVE, Urine Phencyclidine Screen NEGATIVE, Urine Amphetamines Screen NEGATIVE, Urine Benzodiazepines Screen NEGATIVE, Urine Coca ine Metabolite Screen NEGATIVE, Urine Cannabinoids Screen NEGATIVE 01/27/20 07:01: Bedside Glucose (Misc Panel) 179H CBC/BMP Laboratory Tests 01/26/20 14:31 FSBS Laboratory Tests Test 01/27/20 07:01 Range/Units Bedside Glucose (Misc Panel) 179 70-105 MG/DL Medications Scheduled Diclofenac Sodium (Diclofenac Sodium) 1% 100GM Gel..gram., 1 APLCT TOP BID, (Reported) Apply to area of pain Duloxetine Hcl (Duloxetine HCl) 30 Mg Capsule.dr, 30 MG PO DAILY, (Reported) Gabapentin (Gabapentin) 300 Mg Capsule, 300 MG PO TID, (Reported) Glipizide (Glipizide) 5 Mg Tablet, 5 MG PO DAILY, (Reported) Lamotrigine (Lamictal) 150 Mg Tablet, 100 MG PO DAILY, (Reported) Metoprolol Tartrate (Metoprolol Tartrate) 25 Mg Tablet, 25 MG PO BID, (Reported) Prazosin Hcl (Prazosin HCl) 2 Mg Capsule, 2 MG PO QHS, (Reported) Quetiapine Fumarate (Quetiapine Fumarate) 200 Mg Tablet, 600 MG PO QHS, (Reported) Simvastatin (Simvastatin) 20 Mg Tablet, 20 MG PO QPM, (Reported) Trazodone HCl (Trazodone HCl) 100 Mg Tablet, 100 MG PO QHS, (Reported) Scheduled PRN Meclizine HCl (Meclizine HCl) 25 Mg Tablet, 25 MG PO Q8H PRN for DIZZINESS, (Reported) Miscellaneous Medications [med rec comment] , (Reported) unable to verify with patient obtained meds from [facility] no history Allergies Coded Allergies: NSAIDS (Non-Steroidal Anti-Inflamma (Verified Allergy, Mild, STOMACH UPSET, 04/04/19) ibuprofen (Verified Allergy, Mild, STOMACH UPSET, 04/04/19) naproxen (Verified Allergy, Mild, CAN TAKE ASPIRIN, 04/04/19) shellfish derived (Verified Allergy, Unknown, 04/04/19) haloperidol (Verified Adverse Reaction, Severe, RASH AND INABILITY TO RELAX MUSCLES. EPS., 04/04/19) BERNABE MARSH DO Jan 27, 2020 10:03
[2020-01-27] MEDS ORDERED: LORazepam 2 MG TAB PO PRN (12:00)
[2020-01-27 12:25] VITALS: BP 117/66
[2020-01-27] MEDS: FOLIC ACID 1 MG TAB PO SCH (12:36)
[2020-01-27] MEDS: THIAMINE 100 MG TAB PO SCH ×2 (12:36→20:58)
[2020-01-27] MEDS: MULTIVITAMINS/MINERALS THERAP 1 TAB PO SCH (12:37)
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
[2020-01-27 15:53] VITALS: BP 131/78
[2020-01-27] MEDS: SIMVASTATIN 20 MG TAB PO SCH (20:57)
[2020-01-27] MEDS: traZODone 100 MG TAB PO SCH (20:57)
[2020-01-27] MEDS: PRAZOSIN 1 MG CAP PO SCH (20:58)
[2020-01-27] MEDS: QUEtiapine FUMARATE 200 MG TAB PO SCH (20:59)
[2020-01-27 21:58] VITALS: BP 163/76
[2020-01-28 06:26] VITALS: BP 140/74
[2020-01-28 08:30] VITALS: BP 124/61
[2020-01-28] MEDS: GABAPENTIN 300 MG CAP PO SCH ×3 (08:30→21:31)
[2020-01-28] MEDS: MULTIVITAMINS/MINERALS THERAP 1 TAB PO SCH (08:30)
[2020-01-28] MEDS: THIAMINE 100 MG TAB PO SCH ×2 (08:30→21:31)
[2020-01-28] MEDS: DULoxetine 30 MG CAP (CYMBALTA) PO SCH (08:30)
[2020-01-28] MEDS: METOPROLOL TART 25 MG TABLET PO SCH ×2 (08:30→21:00)
[2020-01-28] MEDS: lamoTRIgine 100MG TAB PO SCH (08:31)
[2020-01-28] MEDS: glipiZIDE (GLUCOTROL) 5 MG TAB PO SCH (08:31)
[2020-01-28] MEDS: FOLIC ACID 1 MG TAB PO SCH (08:31)
--- NOTE | 2020-01-28 09:11 | MHIPNPDOC ---
[facility] Progress Note Progress Note Inpatient Progress Note Iris Melton MRN: N/A Date of : N/A Date of Service: 01/28/2020 History of Present Illness The patient, a well-known 54-year-old woman, presents reportedly after experiencing "psychosis", she had been notably relapsing on alcohol and a number of other medications including stimulants and cannabis, she reports that she presented due to feeling worse and had not been taking her medications. The patient has a notable history of malingering especially for housing on our unit. She quickly resolved from her psychosis in the ER and when she was met with she reported no major changes in her symptoms since she had been restarted on her home medications. She reported that she relapsed on drugs especially when she wasn't able to take her medications as effectively. Psychosocial information taken from previous admission extracted and updated as appropriate with patient. Interval History The patient is met with today. She reports that she has been going to groups and has been attending to her treatment, she has been taking her medications and reports that she is feeling "somewhat better", she has focused on trying to stay and had been notably yelling in the lounge although this appeared to be behavioral as she was quickly redirected and no longer did this when she was curtailed about this behavior. She had no other difficulties. She has no complaints other than had missed her TLS appointment yesterday. Review Of Systems General: Denies fever or appetite changes Cardiovascular: Denies Chest pain or palpations GI: Denies Nausea, vomiting, or bowel changes Respiratory: Denies shortness of breath or cough Neuro: Reports some mild dizziness on her current medication, denies tremors. Derm: Denies any rashes or pruritus MSK: Denies any muscle tightness or stiffness Psychotherapy None on this visit. Vital Signs Reviewed. Mental Status Examination General: Well dressed with good hygiene Speech: Spontaneous and fluid Thought processes: Linear and logical MSK: Smooth and coordinated gait, no signs of tremors or involuntary orofacial movements Thought content: Perseverative on admission. Abstract reasoning, and computation: Intact Description of associations: Intact Description of abnormal or psychotic thoughts: Denies any suicidal or homicidal ideation. Denies any auditory or visual hallucinations. Does not appear to be responding to internal stimuli. Does not appear to be endorsing any bizarre or paranoid ideation. Judgment: Chronically limited. Insight: Chronically limited. Orientation: Alert and orientated 3 Cognition: Grossly normal Recent and remote memory: Intact Attention span and concentration: Intact Fund of knowledge: Adequate Mood: "okay" Affect: Euthymic with a full range Diagnoses Unspecified psychotic disorder. Substance induced. Alcohol use disorder, severe, in sustained remission. Cocaine use disorder, severe, in sustained remission. Opioid use disorder, severe, in sustained remission. Cannabis use disorder, unspecified. Concern for malingering. PTSD, chronic. Assessment and Plan Unspecified psychotic disorder: Continue home medications. Alcohol use disorder: CIWA protocol. Opioid use disorder/cocaine usage cannabis use: Recommend outpatient rehab. PTSD: Continue home medications, monitor. Disposition Will be converted voluntary today, further observation to determine if she is suffering from dizziness. Behavioral problems will be monitored closely and discharged if patient decompensates on the unit. Time Spent 15 minutes Vital Signs Vital Signs Date Time Temp Pulse Resp B/P (MAP) Pulse Ox O2 Delivery O2 Flow Rate FiO2 01/28/20 08:30 97 124/61 01/28/20 06:26 96.4 18 95 Room Air Laboratory Data 24H Labs Laboratory Tests 2 01/27/20 17:09: Bedside Glucose (Misc Panel) 126H 01/28/20 06:18: Bedside Glucose (Misc Panel) 166H Current Medications Current Medications Medications (Trade) Dose Ordered Sig/Wagner Route PRN Reason Start Time Stop Time Status Last Admin Dose Admin Acetaminophen (Tylenol Tab) 650 mg Q6HP PRN PO HEADACHE or DISCOMFORT 01/26/20 18:00 Al Hydrox/Mg Hydrox/Simethicone (Mylanta) 30 ml Q4HP PRN PO HEARTBURN/INDIGESTION 01/26/20 18:00 Duloxetine HCl (Cymbalta) 60 mg DAILY PO 01/27/20 09:00 01/28/20 08:30 Folic Acid (Folic Acid) 1 mg DAILY PO 01/27/20 09:00 01/28/20 08:31 Gabapentin (Neurontin) 300 mg TID PO 01/26/20 21:00 01/28/20 08:30 Glipizide (Glucotrol) 5 mg DAILY PO 01/27/20 09:00 01/28/20 08:31 Home Med (Med Rec Complete!) ASDIRECTED XX 01/26/20 18:00 01/26/20 18:07 DC Lamotrigine (LaMICtal) 150 mg DAILY PO 01/27/20 09:00 01/28/20 08:31 Lorazepam (Ativan) 2 mg ASDIRECTED PRN PO SEE PROTOCOL 01/27/20 12:00 Lorazepam (Ativan) 2 mg STAT STAT PO 01/26/20 15:18 01/26/20 15:19 DC 01/26/20 15:25 Magnesium Hydroxide (Milk Of Magnesia) 30 ml DAILYPRN PRN PO CONSTIPATION 01/26/20 18:00 Meclizine HCl (Antivert) 25 mg Q8HP PRN PO dizziness 01/26/20 18:00 Metoprolol Tartrate (Lopressor) 25 mg BID PO 01/26/20 21:00 01/28/20 08:30 Multivitamins (Theragram-M) 1 tab DAILY PO 01/27/20 09:00 01/28/20 08:30 Prazosin HCl (Minipress) 2 mg QHS PO 01/26/20 21:00 01/27/20 20:58 Quetiapine Fumarate (SEROquel) 600 mg QHS PO 01/26/20 21:00 01/27/20 20:59 Simvastatin (Zocor) 20 mg QHS PO 01/26/20 21:00 01/27/20 20:57 Thiamine HCl (Thiamine HCl) 100 mg BID PO 01/27/20 09:00 01/30/20 08:59 01/28/20 08:30 Trazodone HCl (Desyrel) 100 mg QHS PO 01/26/20 21:00 01/27/20 20:57 Allergies Coded Allergies: NSAIDS (Non-Steroidal Anti-Inflamma (Verified Allergy, Mild, STOMACH UPSET, 04/04/19) ibuprofen (Verified Allergy, Mild, STOMACH UPSET, 04/04/19) naproxen (Verified Allergy, Mild, CAN TAKE ASPIRIN, 04/04/19) shellfish derived (Verified Allergy, Unknown, 04/04/19) haloperidol (Verified Adverse Reaction, Severe, RASH AND INABILITY TO RELAX MUSCLES. EPS., 04/04/19) BERNABE MARSH DO Jan 28, 2020 09:11
[2020-01-28 09:52] VITALS: BP 124/61
[2020-01-28] MEDS: hydrOXYzine 50 MG TAB PO SCH ×2 (12:36→18:09)
[2020-01-28 16:00] VITALS: BP 150/84
[2020-01-28 17:51] VITALS: BP 150/84
[2020-01-28 17:52] VITALS: BP 150/84
[2020-01-28] MEDS: PRAZOSIN 1 MG CAP PO SCH (21:31)
[2020-01-28] MEDS: traZODone 100 MG TAB PO SCH (21:31)
[2020-01-28] MEDS: SIMVASTATIN 20 MG TAB PO SCH (21:31)
[2020-01-28] MEDS: QUEtiapine FUMARATE 200 MG TAB PO SCH (21:32)
[2020-01-29] MEDS: hydrOXYzine 50 MG TAB PO SCH ×5 (06:17→23:21)
[2020-01-29 06:35] VITALS: BP 124/68
[2020-01-29 08:00] VITALS: BP 136/70
[2020-01-29] MEDS: FOLIC ACID 1 MG TAB PO SCH (09:09)
[2020-01-29] MEDS: lamoTRIgine 100MG TAB PO SCH (09:09)
[2020-01-29] MEDS: MULTIVITAMINS/MINERALS THERAP 1 TAB PO SCH (09:10)
[2020-01-29] MEDS: GABAPENTIN 300 MG CAP PO SCH ×3 (09:10→21:46)
[2020-01-29] MEDS: METOPROLOL TART 25 MG TABLET PO SCH ×2 (09:10→21:47)
[2020-01-29] MEDS: DULoxetine 30 MG CAP (CYMBALTA) PO SCH (09:10)
[2020-01-29] MEDS: THIAMINE 100 MG TAB PO SCH ×2 (09:10→21:47)
[2020-01-29] MEDS: glipiZIDE (GLUCOTROL) 5 MG TAB PO SCH (09:11)
--- NOTE | 2020-01-29 09:11 | MHIPNPDOC ---
[facility] Progress Note Progress Note Inpatient Progress Note Iris Melton MRN: N/A Date of : N/A Date of Service: 01/29/2020 History of Present Illness The patient, a well-known 54-year-old woman, presents reportedly after experiencing "psychosis", she had been notably relapsing on alcohol and a number of other medications including stimulants and cannabis, she reports that she presented due to feeling worse and had not been taking her medications. The patient has a notable history of malingering especially for housing on our unit. She quickly resolved from her psychosis in the ER and when she was met with she reported no major changes in her symptoms since she had been restarted on her home medications. She reported that she relapsed on drugs especially when she wasn't able to take her medications as effectively. Psychosocial information taken from previous admission extracted and updated as appropriate with patient. Interval History The patient is met with today. She has no complaints. She reports that her medications are working normally and that she is feeling improved, she has no other complaints and reports that her mood appears to be leveling out better. She generally interacts only so long as to satisfy nursing and otherwise is generally uninterested in her care. No complaints otherwise today. Review Of Systems General: Denies fever or appetite changes Cardiovascular: Denies Chest pain or palpations GI: Denies Nausea, vomiting, or bowel changes Respiratory: Denies shortness of breath or cough Neuro: No changes from dizziness. Derm: Denies any rashes or pruritus MSK: Denies any muscle tightness or stiffness Psychotherapy None on this visit. Vital Signs Reviewed. Mental Status Examination General: Well dressed with good hygiene Speech: Spontaneous and fluid Thought processes: Linear and logical MSK: Smooth and coordinated gait, no signs of tremors or involuntary orofacial movements Thought content: Perseverative on admission. Abstract reasoning, and computation: Intact Description of associations: Intact Description of abnormal or psychotic thoughts: Denies any suicidal or homicidal ideation. Denies any auditory or visual hallucinations. Does not appear to be responding to internal stimuli. Does not appear to be endorsing any bizarre or paranoid ideation. Judgment: Chronically limited. Insight: Chronically limited. Orientation: Alert and orientated 3 Cognition: Grossly normal Recent and remote memory: Intact Attention span and concentration: Intact Fund of knowledge: Adequate Mood: "okay" Affect: Euthymic with a full range Diagnoses Unspecified psychotic disorder. Highly concerning for substance-induced versus malingering Alcohol use disorder, severe, in sustained remission. Cocaine use disorder, severe, in sustained remission. Opioid use disorder, severe, in sustained remission. Cannabis use disorder, unspecified. Concern for malingering. PTSD, chronic. Assessment and Plan Unspecified psychotic disorder: Continue home medications. Alcohol use disorder: CIWV protocol. Opioid use disorder/cocaine usage cannabis use: Recommend outpatient rehab. PTSD: Continue home medications, monitor. Disposition Patient will be observed and likely discharged on Saturday, converted to voluntary status. Time Spent 15 minutes Saturday Vital Signs Vital Signs Date Time Temp Pulse Resp B/P (MAP) Pulse Ox O2 Delivery O2 Flow Rate FiO2 01/29/20 09:10 97 124/68 01/29/20 06:35 96.8 18 95 Room Air Laboratory Data 24H Labs Laboratory Tests 2 01/29/20 06:19: Bedside Glucose (Misc Panel) 155H Current Medications Current Medications Medications (Trade) Dose Ordered Sig/Wagner Route PRN Reason Start Time Stop Time Status Last Admin Dose Admin Acetaminophen (Tylenol Tab) 650 mg Q6HP PRN PO HEADACHE or DISCOMFORT 01/26/20 18:00 Al Hydrox/Mg Hydrox/Simethicone (Mylanta) 30 ml Q4HP PRN PO HEARTBURN/INDIGESTION 01/26/20 18:00 Duloxetine HCl (Cymbalta) 60 mg DAILY PO 01/27/20 09:00 01/29/20 09:10 Folic Acid (Folic Acid) 1 mg DAILY PO 01/27/20 09:00 01/29/20 09:09 Gabapentin (Neurontin) 300 mg TID PO 01/26/20 21:00 01/29/20 09:10 Glipizide (Glucotrol) 5 mg DAILY PO 01/27/20 09:00 01/28/20 08:31 Home Med (Med Rec Complete!) ASDIRECTED XX 01/26/20 18:00 01/26/20 18:07 DC Hydroxyzine HCl (Atarax) 50 mg Q6H PO 01/28/20 12:00 01/29/20 06:17 Lamotrigine (LaMICtal) 150 mg DAILY PO 01/27/20 09:00 01/29/20 09:09 Lorazepam (Ativan) 2 mg ASDIRECTED PRN PO SEE PROTOCOL 01/27/20 12:00 Lorazepam (Ativan) 2 mg STAT STAT PO 01/26/20 15:18 01/26/20 15:19 DC 01/26/20 15:25 Magnesium Hydroxide (Milk Of Magnesia) 30 ml DAILYPRN PRN PO CONSTIPATION 01/26/20 18:00 Meclizine HCl (Antivert) 25 mg Q8HP PRN PO dizziness 01/26/20 18:00 Metoprolol Tartrate (Lopressor) 25 mg BID PO 01/26/20 21:00 01/29/20 09:10 Multivitamins (Theragram-M) 1 tab DAILY PO 01/27/20 09:00 01/29/20 09:10 Prazosin HCl (Minipress) 2 mg QHS PO 01/26/20 21:00 01/28/20 21:31 Quetiapine Fumarate (SEROquel) 600 mg QHS PO 01/26/20 21:00 01/28/20 21:32 Simvastatin (Zocor) 20 mg QHS PO 01/26/20 21:00 01/28/20 21:31 Thiamine HCl (Thiamine HCl) 100 mg BID PO 01/27/20 09:00 01/30/20 08:59 01/28/20 21:31 Trazodone HCl (Desyrel) 100 mg QHS PO 01/26/20 21:00 01/28/20 21:31 Allergies Coded Allergies: NSAIDS (Non-Steroidal Anti-Inflamma (Verified Allergy, Mild, STOMACH UPSET, 04/04/19) ibuprofen (Verified Allergy, Mild, STOMACH UPSET, 04/04/19) naproxen (Verified Allergy, Mild, CAN TAKE ASPIRIN, 04/04/19) shellfish derived (Verified Allergy, Unknown, 04/04/19) haloperidol (Verified Adverse Reaction, Severe, RASH AND INABILITY TO RELAX MUSCLES. EPS., 04/04/19) BERNABE MARSH DO Jan 29, 2020 09:11
[2020-01-29 16:00] VITALS: BP 161/76
[2020-01-29] MEDS: SIMVASTATIN 20 MG TAB PO SCH (21:47)
[2020-01-29] MEDS: QUEtiapine FUMARATE 200 MG TAB PO SCH (21:47)
[2020-01-29] MEDS: PRAZOSIN 1 MG CAP PO SCH (21:47)
[2020-01-29] MEDS: traZODone 100 MG TAB PO SCH (21:48)
[2020-01-29 21:57] VITALS: BP 161/76
[2020-01-30] MEDS: hydrOXYzine 50 MG TAB PO SCH ×4 (05:54→23:42)
[2020-01-30 06:00] VITALS: BP 126/59
[2020-01-30 06:15] VITALS: BP 126/59
[2020-01-30] MEDS: METOPROLOL TART 25 MG TABLET PO SCH ×2 (09:22→21:45)
[2020-01-30] MEDS: glipiZIDE (GLUCOTROL) 5 MG TAB PO SCH (09:22)
[2020-01-30] MEDS: MULTIVITAMINS/MINERALS THERAP 1 TAB PO SCH (09:22)
[2020-01-30] MEDS: FOLIC ACID 1 MG TAB PO SCH (09:22)
[2020-01-30] MEDS: DULoxetine 30 MG CAP (CYMBALTA) PO SCH (09:22)
[2020-01-30] MEDS: GABAPENTIN 300 MG CAP PO SCH ×3 (09:23→21:45)
[2020-01-30] MEDS: lamoTRIgine 100MG TAB PO SCH (09:23)
--- NOTE | 2020-01-30 11:45 | MHIPNPDOC ---
[facility] Progress Note Progress Note Inpatient Progress Note Iris Melton MRN: N/A Date of : N/A Date of Service: 01/30/2020 History of Present Illness The patient, a well-known 54-year-old woman, presents reportedly after experiencing "psychosis", she had been notably relapsing on alcohol and a number of other medications including stimulants and cannabis, she reports that she presented due to feeling worse and had not been taking her medications. The patient has a notable history of malingering especially for housing on our unit. She quickly resolved from her psychosis in the ER and when she was met with she reported no major changes in her symptoms since she had been restarted on her home medications. She reported that she relapsed on drugs especially when she wasn't able to take her medications as effectively. Psychosocial information taken from previous admission extracted and updated as appropriate with patient. Interval History Patient has met with today, she reports she is doing better and is having much less flashbacks. She reports her medications are doing well and she no longer has any dizziness. She has no complaints and has generally been more cooperative with staff and has had no behavioral problems overnight by report. She has no complaints today and otherwise states she is doing "fine." Review Of Systems General: Denies fever or appetite changes Cardiovascular: Denies Chest pain or palpations GI: Denies Nausea, vomiting, or bowel changes Respiratory: Denies shortness of breath or cough Neuro: No dizziness or tremors at this time. Derm: Denies any rashes or pruritus MSK: Denies any muscle tightness or stiffness. Psychotherapy None on this visit. Vital Signs Reviewed. Mental Status Examination General: Well dressed with good hygiene Speech: Spontaneous and fluid Thought processes: Linear and logical MSK: Smooth and coordinated gait, no signs of tremors or involuntary orofacial movements Thought content: Perseverative on admission. Abstract reasoning, and computation: Intact Description of associations: Intact Description of abnormal or psychotic thoughts: Denies any suicidal or homicidal ideation. Denies any auditory or visual hallucinations. Does not appear to be responding to internal stimuli. Does not appear to be endorsing any bizarre or paranoid ideation. Judgment: Chronically limited. Insight: Chronically limited. Orientation: Alert and orientated 3 Cognition: Grossly normal Recent and remote memory: Intact Attention span and concentration: Intact Fund of knowledge: Adequate Mood: "okay" Affect: Euthymic with a full range Diagnoses Unspecified psychotic disorder. Highly concerning for substance-induced versus malingering Alcohol use disorder, severe, in sustained remission. Cocaine use disorder, severe, in sustained remission. Opioid use disorder, severe, in sustained remission. Cannabis use disorder, unspecified. Concern for malingering. PTSD, chronic. Assessment and Plan Unspecified psychotic disorder: Continue home medications. Alcohol use disorder: CIWA protocol. Opioid use disorder/cocaine usage cannabis use: Recommend outpatient rehab. PTSD: Continue home medications, monitor. Disposition Discharge on Saturday, if patient continues to improve currently on voluntary status. Time Spent 15 minutes. Saturday Vital Signs Vital Signs Date Time Temp Pulse Resp B/P (MAP) Pulse Ox O2 Delivery O2 Flow Rate FiO2 01/30/20 09:22 104 128/68 01/30/20 06:15 97.0 16 98 Room Air Laboratory Data 24H Labs Laboratory Tests 2 01/29/20 21:01: Bedside Glucose (Misc Panel) 156H 01/30/20 06:10: Bedside Glucose (Misc Panel) 157H Current Medications Current Medications Medications (Trade) Dose Ordered Sig/Wagner Route PRN Reason Start Time Stop Time Status Last Admin Dose Admin Acetaminophen (Tylenol Tab) 650 mg Q6HP PRN PO HEADACHE or DISCOMFORT 01/26/20 18:00 Al Hydrox/Mg Hydrox/Simethicone (Mylanta) 30 ml Q4HP PRN PO HEARTBURN/INDIGESTION 01/26/20 18:00 Duloxetine HCl (Cymbalta) 60 mg DAILY PO 01/27/20 09:00 01/30/20 09:22 Folic Acid (Folic Acid) 1 mg DAILY PO 01/27/20 09:00 01/30/20 09:22 Gabapentin (Neurontin) 300 mg TID PO 01/26/20 21:00 01/30/20 09:23 Glipizide (Glucotrol) 5 mg DAILY PO 01/27/20 09:00 01/30/20 09:22 Home Med (Med Rec Complete!) ASDIRECTED XX 01/26/20 18:00 01/26/20 18:07 DC Hydroxyzine HCl (Atarax) 50 mg Q6H PO 01/28/20 12:00 01/30/20 05:54 Lamotrigine (LaMICtal) 150 mg DAILY PO 01/27/20 09:00 01/30/20 09:23 Lorazepam (Ativan) 2 mg ASDIRECTED PRN PO SEE PROTOCOL 01/27/20 12:00 Lorazepam (Ativan) 2 mg STAT STAT PO 01/26/20 15:18 01/26/20 15:19 DC 01/26/20 15:25 Magnesium Hydroxide (Milk Of Magnesia) 30 ml DAILYPRN PRN PO CONSTIPATION 01/26/20 18:00 Meclizine HCl (Antivert) 25 mg Q8HP PRN PO dizziness 01/26/20 18:00 Metoprolol Tartrate (Lopressor) 25 mg BID PO 01/26/20 21:00 01/30/20 09:22 Multivitamins (Theragram-M) 1 tab DAILY PO 01/27/20 09:00 01/30/20 09:22 Prazosin HCl (Minipress) 2 mg QHS PO 01/26/20 21:00 01/29/20 21:47 Quetiapine Fumarate (SEROquel) 600 mg QHS PO 01/26/20 21:00 01/29/20 21:47 Simvastatin (Zocor) 20 mg QHS PO 01/26/20 21:00 01/29/20 21:47 Thiamine HCl (Thiamine HCl) 100 mg BID PO 01/27/20 09:00 01/30/20 08:59 DC 01/29/20 21:47 Trazodone HCl (Desyrel) 100 mg QHS PO 01/26/20 21:00 01/29/20 21:48 Allergies Coded Allergies: NSAIDS (Non-Steroidal Anti-Inflamma (Verified Allergy, Mild, STOMACH UPSET, 04/04/19) ibuprofen (Verified Allergy, Mild, STOMACH UPSET, 04/04/19) naproxen (Verified Allergy, Mild, CAN TAKE ASPIRIN, 04/04/19) shellfish derived (Verified Allergy, Unknown, 04/04/19) haloperidol (Verified Adverse Reaction, Severe, RASH AND INABILITY TO RELAX MUSCLES. EPS., 04/04/19) BERNABE MARSH DO Jan 30, 2020 11:45
[2020-01-30 16:04] VITALS: BP 122/52
[2020-01-30] MEDS: QUEtiapine FUMARATE 200 MG TAB PO SCH (21:45)
[2020-01-30] MEDS: SIMVASTATIN 20 MG TAB PO SCH (21:45)
[2020-01-30] MEDS: traZODone 100 MG TAB PO SCH (21:45)
[2020-01-30] MEDS: PRAZOSIN 1 MG CAP PO SCH (21:47)
[2020-01-31] MEDS: hydrOXYzine 50 MG TAB PO SCH ×3 (05:38→17:07)
[2020-01-31 06:07] VITALS: BP 126/58
[2020-01-31] MEDS: MULTIVITAMINS/MINERALS THERAP 1 TAB PO SCH (08:33)
[2020-01-31] MEDS: DULoxetine 30 MG CAP (CYMBALTA) PO SCH (08:33)
[2020-01-31] MEDS: lamoTRIgine 100MG TAB PO SCH (08:33)
[2020-01-31] MEDS: GABAPENTIN 300 MG CAP PO SCH ×3 (08:33→20:25)
[2020-01-31] MEDS: FOLIC ACID 1 MG TAB PO SCH (08:33)
[2020-01-31] MEDS: glipiZIDE (GLUCOTROL) 5 MG TAB PO SCH (08:33)
[2020-01-31] MEDS: METOPROLOL TART 25 MG TABLET PO SCH ×2 (08:39→20:25)
--- NOTE | 2020-01-31 10:47 | MHIPNPDOC ---
[facility] Progress Note Progress Note DATE OF SERVICE: 01/31/20 HISTORY: . VITAL SIGNS: See below. NEW TEST RESULTS: . CURRENT MEDICATIONS: See below. MENTAL STATUS EXAMINATION: Patient is a -year old female, who is . Speech: Is . Language skills are . Thought processes including: . Thought content: . Abstract reasoning, and computation: . Description of asso ciations: . Description of abnormal or psychotic thoughts: . Judgment: . Insight: [very limited, good, fair. poor]. Orientation: . Recent and remote memory: . Attention span and concentration: . Language: . Fund of knowledge: . Mood: . Affect: . DIAGNOSES: 1. . 2. . 3. . ASSESSMENT: MANAGEMENT PLAN: . TIME SPENT: minutes. Vital Signs Vital Signs Date Time Temp Pulse Resp B/P (MAP) Pulse Ox O2 Delivery O2 Flow Rate FiO2 01/31/20 08:39 80 132/73 01/31/20 06:07 97.0 18 98 Room Air Laboratory Data 24H Labs Laboratory Tests 2 01/30/20 16:00: Bedside Glucose (Misc Panel) 96 01/31/20 05:46: Bedside Glucose (Misc Panel) 178H Current Medications Current Medications Medications (Trade) Dose Ordered Sig/Wagner Route PRN Reason Start Time Stop Time Status Last Admin Dose Admin Acetaminophen (Tylenol Tab) 650 mg Q6HP PRN PO HEADACHE or DISCOMFORT 01/26/20 18:00 Al Hydrox/Mg Hydrox/Simethicone (Mylanta) 30 ml Q4HP PRN PO HEARTBURN/INDIGESTION 01/26/20 18:00 Duloxetine HCl (Cymbalta) 60 mg DAILY PO 01/27/20 09:00 01/31/20 08:33 Folic Acid (Folic Acid) 1 mg DAILY PO 01/27/20 09:00 01/31/20 08:33 Gabapentin (Neurontin) 300 mg TID PO 01/26/20 21:00 01/31/20 08:33 Glipizide (Glucotrol) 5 mg DAILY PO 01/27/20 09:00 01/31/20 08:33 Home Med (Med Rec Complete!) ASDIRECTED XX 01/26/20 18:00 01/26/20 18:07 DC Hydroxyzine HCl (Atarax) 50 mg Q6H PO 01/28/20 12:00 01/31/20 05:38 Lamotrigine (LaMICtal) 150 mg DAILY PO 01/27/20 09:00 01/31/20 08:33 Lorazepam (Ativan) 2 mg ASDIRECTED PRN PO SEE PROTOCOL 01/27/20 12:00 01/30/20 12:47 DC Lorazepam (Ativan) 2 mg STAT STAT PO 01/26/20 15:18 01/26/20 15:19 DC 01/26/20 15:25 Magnesium Hydroxide (Milk Of Magnesia) 30 ml DAILYPRN PRN PO CONSTIPATION 01/26/20 18:00 Meclizine HCl (Antivert) 25 mg Q8HP PRN PO dizziness 01/26/20 18:00 Metoprolol Tartrate (Lopressor) 25 mg BID PO 01/26/20 21:00 01/31/20 08:39 Multivitamins (Theragram-M) 1 tab DAILY PO 01/27/20 09:00 01/31/20 08:33 Prazosin HCl (Minipress) 2 mg QHS PO 01/26/20 21:00 01/30/20 21:47 Quetiapine Fumarate (SEROquel) 600 mg QHS PO 01/26/20 21:00 01/30/20 21:45 Simvastatin (Zocor) 20 mg QHS PO 01/26/20 21:00 01/30/20 21:45 Thiamine HCl (Thiamine HCl) 100 mg BID PO 01/27/20 09:00 01/30/20 08:59 DC 01/29/20 21:47 Trazodone HCl (Desyrel) 100 mg QHS PO 01/26/20 21:00 01/30/20 21:45 Allergies Coded Allergies: NSAIDS (Non-Steroidal Anti-Inflamma (Verified Allergy, Mild, STOMACH UPSET, 04/04/19) ibuprofen (Verified Allergy, Mild, STOMACH UPSET, 04/04/19) naproxen (Verified Allergy, Mild, CAN TAKE ASPIRIN, 04/04/19) shellfish derived (Verified Allergy, Unknown, 04/04/19) haloperidol (Verified Adverse Reaction, Severe, RASH AND INABILITY TO RELAX MUSCLES. EPS., 04/04/19) BERNABE MARSH DO Jan 31, 2020 10:47
[2020-01-31 14:37] VITALS: BP 121/66
[2020-01-31] MEDS: traZODone 100 MG TAB PO SCH (20:25)
[2020-01-31] MEDS: PRAZOSIN 1 MG CAP PO SCH (20:26)
[2020-01-31] MEDS: SIMVASTATIN 20 MG TAB PO SCH (20:27)
[2020-01-31] MEDS: QUEtiapine FUMARATE 200 MG TAB PO SCH (20:27)
[2020-02-01] MEDS: hydrOXYzine 50 MG TAB PO SCH ×3 (05:50→12:19)
[2020-02-01 06:26] VITALS: BP 135/64
[2020-02-01] MEDS: DULoxetine 30 MG CAP (CYMBALTA) PO SCH (08:39)
[2020-02-01] MEDS: glipiZIDE (GLUCOTROL) 5 MG TAB PO SCH (08:39)
[2020-02-01] MEDS: FOLIC ACID 1 MG TAB PO SCH (08:39)
[2020-02-01 08:40] VITALS: BP 112/78
[2020-02-01] MEDS: METOPROLOL TART 25 MG TABLET PO SCH (08:40)
[2020-02-01] MEDS: MULTIVITAMINS/MINERALS THERAP 1 TAB PO SCH (08:40)
[2020-02-01] MEDS: lamoTRIgine 100MG TAB PO SCH (08:40)
[2020-02-01] MEDS: GABAPENTIN 300 MG CAP PO SCH (08:40)
[2020-02-01 08:43] VITALS: BP 112/78
--- NOTE | 2020-02-01 09:00 | MHDSPDOC ---
[facility] Discharge Summary Discharge Summary DATE OF ADMISSION: Jan 26, 2020 at 17:50 DATE OF DISCHARGE: 02/01/20 Discharge Iris Melton MRN: N/A Date of : N/A Date of Service: 02/01/2020 Diagnoses Unspecified psychotic disorder. Highly concerning for substance-induced versus malingering Alcohol use disorder, severe, in sustained remission. Cocaine use disorder, severe, in sustained remission. Opioid use disorder, severe, in sustained remission. Cannabis use disorder, unspecified. Concern for malingering. PTSD, chronic. History of Present Illness The patient, a well-known 54-year-old woman, presents reportedly after experiencing "psychosis", she had been notably relapsing on alcohol and a number of other medications including stimulants and cannabis, she reports that she presented due to feeling worse and had not been taking her medications. The patient has a notable history of malingering especially for housing on our unit. She quickly resolved from her psychosis in the ER and when she was met with she reported no major changes in her symptoms since she had been restarted on her home medications. She reported that she relapsed on drugs especially when she wasn't able to take her medications as effectively. Psychosocial information taken from previous admission extracted and updated as appropriate with patient. Consultants Involved Hospitalist/PCP screening Treatment and Progress On The Unit The patient was admitted to the inpatient mental health unit shortly after she had left prior. The patient reported that she wasn't sure if she was "ready." The patient generally engaged well at first, but was somewhat disruptive on the unit, disturbed with yelling and screaming, after I had spoken to her and told her this was unacceptable this ceased quickly. She was subsequently triaged to resume her home medications. She had stopped her Lamictal for roughly a week prior, but was amenable to restarting it with close monitoring, she had no signs of rashes or other concerning behaviors past this point. She initially reported some dizziness on her medication combination that had additionally vanished given the large and complex medication regimen is quite clear that the patient likely does not take them consistently once she leaves. She did well on the unit and subsequently requested discharge. It does appear that she primarily was present due to her concern about housing rather than an overt psychiatric phenomenon where she had complained of having "flashbacks," however, these have not been elucidated. Discharge Assessment 54-year-old woman with a history of reported PTSD presents after reporting increased flashbacks, however, she does well with only supportive treatment likely indicating malingering versus adjustment. The patient at the time of discharge did not meet criteria for involuntary admission/extension due to having a normal mental status exam, fair insight into the situation, They are engaged in the discharge process, as well as being friendly and amenable in behavioral control and havent been engaging in any observed concerning behavior or ideation recently. They decline voluntary extension/admission at this time and must be discharged in good yvonne, as Im unable to make a case for holding the patient against their will. They may have historical risk factors of admissions and other interactions with psychiatry however, those are not modifiable from a clinical perspective. The patient will need to be discharged in good yvonne. Mental Status Examination General: Well dressed with good hygiene Speech: Spontaneous and fluid Thought processes: Linear and logical MSK: Smooth and coordinated gait, no signs of tremors or involuntary orofacial movements Thought content: Future orientated Abstract reasoning, and computation: Intact Description of associations: Intact Description of abnormal or psychotic thoughts: Denies any suicidal or homicidal ideation. Denies any auditory or visual hallucinations. Does not appear to be responding to internal stimuli. Does not appear to be endorsing any bizarre or paranoid ideation. Judgment: Chronically limited Insight: Chronically limited Orientation: Alert and orientated 3 Cognition: Grossly normal Recent and remote memory: Intact Attention span and concentration: Intact Fund of knowledge: Adequate Mood: "okay" Affect: Euthymic with a full range Follow Up The social work team worked during the predischarge meeting in order to evaluate for further issues of lethality address them fully before discharge. They worked on safety planning with the patient's family members in order to ensure that the patient will have a safe and effective discharge. Time Spent The amount of time spent in the coordination of care for this patient was approximately 45 minutes. Saturday Vital Signs/I&Os Vital Signs Date Time Temp Pulse Resp B/P (MAP) Pulse Ox O2 Delivery O2 Flow Rate FiO2 02/01/20 08:43 98 18 112/78 (89) 02/01/20 06:26 97.0 95 Room Air Laboratory Data Labs 24H Laboratory Tests 2 01/31/20 15:50: Bedside Glucose (Misc Panel) 139H 02/01/20 05:54: Bedside Glucose (Misc Panel) 173H Medications Scheduled Diclofenac Sodium (Diclofenac Sodium) 1% 100GM Gel..gram., 1 APLCT TOP BID, (Reported) Apply to area of pain Duloxetine Hcl (Cymbalta) 30 Mg Capsule.dr, 60 MG PO DAILY for mood for 7 Days, #14 Gabapentin (Gabapentin) 300 Mg Capsule, 300 MG PO TID, (Reported) Glipizide (Glipizide) 5 Mg Tablet, 5 MG PO DAILY, (Reported) Lamotrigine (Lamictal) 100 Mg Tablet, 150 MG PO DAILY for mood for 7 Days, #13 Metoprolol Tartrate (Metoprolol Tartrate) 25 Mg Tablet, 25 MG PO BID, (Reported) Prazosin Hcl (Prazosin HCl) 2 Mg Capsule, 2 MG PO QHS, (Reported) Quetiapine Fumarate (Quetiapine Fumarate) 200 Mg Tablet, 600 MG PO QHS, (Reported) Simvastatin (Simvastatin) 20 Mg Tablet, 20 MG PO QHS for HLD for 7 Days, #7 Trazodone HCl (Trazodone HCl) 100 Mg Tablet, 100 MG PO QHS, (Reported) Scheduled PRN Meclizine HCl (Meclizine HCl) 25 Mg Tablet, 25 MG PO Q8HP PRN for dizziness for 7 Days, #7 Allergies Coded Allergies: NSAIDS (Non-Steroidal Anti-Inflamma (Verified Allergy, Mild, STOMACH UPSET, 04/04/19) ibuprofen (Verified Allergy, Mild, STOMACH UPSET, 04/04/19) naproxen (Verified Allergy, Mild, CAN TAKE ASPIRIN, 04/04/19) shellfish derived (Verified Allergy, Unknown, 04/04/19) haloperidol (Verified Adverse Reaction, Severe, RASH AND INABILITY TO RELAX MUSCLES. EPS., 04/04/19) BERNABE MARSH DO Feb 01, 2020 09:00
[2020-02-01 09:43] LABS: HEMOGLOBIN A1c 7.9 %
[2020-02-01 10:13] LABS: CHOLESTEROL RISK RATIO 8.344 (<5)
[2020-02-01] MEDS ORDERED: CYMB1CAP5 PO (10:53)
[2020-02-01] MEDS ORDERED: LAMI1TAB7 PO (10:53)
[2020-02-01] MEDS ORDERED: SIMV20TA22 PO (10:53)
[2020-02-01] MEDS ORDERED: MECL-86 PO (10:53)
== END 2020-02-01 13:15 | disposition home or self-care (01) | DRG 754 ==
LOC: M ED 12:23 → M ED INP 17:50 → M PSY 20:02
PROVIDERS: ADMIT Psychiatry & Neurology Addiction Medicine; ATTEND Psychiatry & Neurology Addiction Medicine
DX: F32.9 Major depressive disorder, single episode, unspecified (principal); F19.94 Other psychoactive substance use, unspecified with psychoactive substance-induced mood disorder; Z76.5 Malingerer [conscious simulation]; F10.10 Alcohol abuse, uncomplicated; F11.90 Opioid use, unspecified, uncomplicated; Z79.899 Other long term (current) drug therapy; Z88.8 Allergy status to other drugs, medicaments and biological substances; Z88.6 Allergy status to analgesic agent; Z91.013 Allergy to seafood; E11.9 Type 2 diabetes mellitus without complications; Z95.2 Presence of prosthetic heart valve; I10 Essential (primary) hypertension

== ENCOUNTER 2020-02-21 23:55 | Emergency (ER) | payer OTHER ==
[~2020-02-21] VITALS: Ht 162.6 cm; Wt 100.0 kg
[~2020-02-21 23:55] MED LIST changes: +DICL1GEL3 TOP; +MECL-86 PO; +med rec comment
[2020-02-22 00:13] VITALS: BP 130/61
[2020-02-22] MEDS ORDERED: SIMV20TA22 PO (22:48)
[2020-02-22] MEDS ORDERED: DULO1CAP5 PO (22:49)
[2020-02-22] MEDS ORDERED: GABA-843 PO ×2 (22:49)
[2020-02-22] MEDS ORDERED: LAMO100T3 PO (22:52)
[2020-02-22] MEDS ORDERED: QUET200T2 PO (22:52)
[2020-02-22] MEDS ORDERED: MECL-86 PO (22:54)
[2020-02-22] MEDS ORDERED: PATIENT COMMENT (22:55)
[2020-03-09] MEDS ORDERED: DULO1CAP6 PO ×2 (11:08→11:43)
== END 2020-02-22 00:45 | disposition home or self-care (01) ==
LOC: M ED 23:55
DX: F43.0 Acute stress reaction (principal); Z88.8 Allergy status to other drugs, medicaments and biological substances; Z79.899 Other long term (current) drug therapy

== ENCOUNTER 2020-02-22 13:58 | Inpatient (IN) | payer OTHER ==
[~2020-02-22] VITALS: Ht 162.6 cm; Wt 111.4 kg
[2020-02-22 15:09] LABS: HEMATOCRIT 38.5 % (36.0-47.0); HEMOGLOBIN 12.9 g/dl (12.0-15.5); MEAN CORPUSCULAR HEMOGLOBIN 28.1 pg (27.0-33.0); MEAN CORPUSCULAR HGB CONC 33.5 g/dl (32.0-36.5); MEAN CORPUSCULAR VOLUME 83.9 fl (80.0-96.0); PLATELET COUNT, AUTOMATED 319 10^3/uL (150-450); RED BLOOD COUNT 4.59 10^6/uL (4.00-5.40); WHITE BLOOD COUNT 6.2 10^3/uL (4.0-10.0)
[2020-02-22 15:50] LABS: HCG, SERUM QUALITATIVE NEGATIVE (NEGATIVE)
[2020-02-22 15:57] LABS: ACETAMINOPHEN LEVEL < 2.0 UG/ML (10.0-30.0); ALBUMIN 3.8 GM/DL (3.2-5.2); ALT/SGPT 27 U/L (12-78); BILIRUBIN,DIRECT 0.1 MG/DL (0.0-0.2); BILIRUBIN,TOTAL 0.5 MG/DL (0.2-1.0); BLOOD UREA NITROGEN 11 MG/DL (7-18); CALCIUM LEVEL 9.1 MG/DL (8.5-10.1); CARBON DIOXIDE LEVEL 28 MEQ/L (21-32); CHLORIDE LEVEL 103 MEQ/L (98-107); CREATININE FOR GFR 0.66 MG/DL (0.55-1.30); ETHYL ALCOHOL (ETHANOL) < 0.003 % (0.000-0.010); GLOMERULAR FILTRATION RATE > 60.0 (>51); GLUCOSE, FASTING 121 MG/DL (70-100); POTASSIUM SERUM 4.1 MEQ/L (3.5-5.1); SALICYLATE LEVEL < 1.7 MG/DL (5.0-30.0); SODIUM LEVEL 139 MEQ/L (136-145); TOTAL PROTEIN 7.5 GM/DL (6.4-8.2)
[2020-02-22] MEDS ORDERED: LIDOCAINE 2% 5ML JELLY UROJET TOP ONE (16:15)
[2020-02-22] MEDS ORDERED: ALPRAZolam 0.5 MG TAB PO ONE (17:00)
[2020-02-22 17:23] LABS: AMPHETAMINES LEVEL URINE NEGATIVE (NEGATIVE); BARBITURATES URINE NEGATIVE (NEGATIVE); BENZODIAZEPINES URINE NEGATIVE (NEGATIVE); CANNABINOIDS URINE NEGATIVE (NEGATIVE); COCAINE METABOLITE URINE NEGATIVE (NEGATIVE); METHADONE URINE NEGATIVE (NEGATIVE); OPIATES URINE NEGATIVE (NEGATIVE); PHENCYCLIDINE URINE NEGATIVE (NEGATIVE)
--- NOTE | 2020-02-22 18:43 | ECGEPIP ---
[facility] - ED Test Date: 2020-02-22 Pat Name: VINNY DUNCAN Department: Room: - Gender: Female [employer]: : 1965 Requested By: ELVIRA BANKS Order Number: [id number] Reading MD: Leticia Cardona Measurements Intervals [place] Rate: 92 P: 45 MS: 136 QRS: 24 QRSD: 86 T: 16 QT: 372 QTc: 461 Interpretive Statements SINUS RHYTHM MINIMAL ST DEPRESSION INCREASED RATE 04/11/19 Electronically Signed on 02-22-2020 18:43:19 EDT by Leticia Cardona
[2020-02-22] MEDS ORDERED: SIMVASTATIN 20 MG TAB PO ONE (20:00)
[2020-02-22] MEDS ORDERED: METOPROLOL TART 25 MG TABLET PO ONE (20:00)
[2020-02-22] MEDS ORDERED: traZODone 100 MG TAB PO ONE (20:00)
[2020-02-22] MEDS ORDERED: QUEtiapine FUMARATE 100 MG TAB PO ONE (20:45)
[2020-02-22] MEDS ORDERED: SIMV20TA22 PO (22:48)
[2020-02-22] MEDS ORDERED: DULO1CAP5 PO (22:49)
[2020-02-22] MEDS ORDERED: GABA-843 PO ×2 (22:49)
[2020-02-22] MEDS ORDERED: LAMO100T3 PO (22:52)
[2020-02-22] MEDS ORDERED: QUET200T2 PO (22:52)
[2020-02-22] MEDS ORDERED: MECL-86 PO (22:54)
[2020-02-22] MEDS ORDERED: PATIENT COMMENT (22:55)
[2020-02-23] MEDS ORDERED: DULoxetine 30 MG CAP (CYMBALTA) PO ONE (07:30)
[2020-02-23] MEDS ORDERED: glipiZIDE (GLUCOTROL) 5 MG TAB PO ONE (07:30)
[2020-02-23] MEDS ORDERED: lamoTRIgine 100MG TAB PO ONE (07:30)
[2020-02-23] MEDS: GABAPENTIN 300 MG CAP PO SCH ×3 (07:47→22:18)
[2020-02-23] MEDS ORDERED: hydrOXYzine 25 MG TAB PO ONE (14:15)
[2020-02-23] MEDS ORDERED: MOM 30ML SUSPENSION UDC PO PRN (16:15)
[2020-02-23] MEDS ORDERED: MAALOX 30 ML SUSP *UDC PO PRN (16:15)
[2020-02-23] MEDS ORDERED: traZODone 50 MG TAB PO PRN (16:15)
[2020-02-23 20:54] VITALS: BP 133/78
[2020-02-23] MEDS ORDERED: MECLIZINE 25 MG TABLET PO PRN (21:00)
[2020-02-23] MEDS ORDERED: PILL CUTTER 1 EACH XX PRN (21:00)
[2020-02-23] MEDS: PRAZOSIN 1 MG CAP PO SCH (22:19)
[2020-02-23] MEDS: traZODone 100 MG TAB PO SCH (22:19)
[2020-02-23] MEDS: SIMVASTATIN 20 MG TAB PO SCH (22:19)
[2020-02-23] MEDS: QUEtiapine FUMARATE 200 MG TAB PO SCH (22:20)
[2020-02-24 07:02] VITALS: BP 116/65
[2020-02-24] MEDS: lamoTRIgine 100MG TAB PO SCH (09:13)
[2020-02-24] MEDS: GABAPENTIN 300 MG CAP PO SCH ×3 (09:13→21:04)
[2020-02-24] MEDS: glipiZIDE (GLUCOTROL) 5 MG TAB PO SCH (09:14)
[2020-02-24] MEDS: DULoxetine 30 MG CAP (CYMBALTA) PO SCH (09:14)
--- NOTE | 2020-02-24 09:14 | MHHPEPDOC ---
[facility] History & Physical History and Physical DATE OF ADMISSION: February 23, 2020 at 16:11 New Patient Tima Castillo MRN: N/A Date of : N/A Date of Service: 02/24/2020 Chief Complaint "I started drinking" History of Present Illness The patient is a 43-year-old man with a history of bipolar presents after becoming extraordinarily drunk with a blood alcohol of 0.3. The patient had reported become quite intoxicated making suicidal or homicidal statements. He reports having history of bipolar disorder and had some impulsivity he had noticed prior to him trying to drink. He reported that he had stopped drinking for quite some time roughly 3 weeks and had relapse in alcohol prior to coming in. When he was met with, reported that he was having withdrawal symptoms but was feeling better mentally and was not feeling suicidal or homicidal. He was last a dmitted in 2016 and reports that he had been admitted only once in the interim. Review Of Systems Depression: The patient denies any episodes of unprovoked depressed mood outside of substance use Anxiety: No significant anxiety endorsed Alexia: Qualifies for manic episodes in the past outside of substance use. Psychotic: The patient denies any experiences of auditory or visual hallu cinations at this time. Trauma: None reported at this time Borderline: Not screened due to age Past Psychiatric History Has history of bipolar disorder currently treated with a combination of Ziprasidone and Geodon for the last several years. He was last admitted in the interim several years ago denies any history of suicide attempts. Allergies Please see below. Family Psychiatric History Reports a family history of mental health problems including bipolar alcoholism and a number of others but no history of suicide. Social History The patient currently lives with girlfriend and reports some difficulties secondary to it. He graduated with a GED. He reports no significant legal troubles at this time. Denies history of trauma or abuse. [place]. Substance Abuse History Has a history of excessive alcohol use. Been sober for 3 months. Has rehabed stints in the past. Denies any other use of substances in the current interim. Medical History Has a history of hypertensive disorder Mental Status Examination General: Well dressed with good hygiene Speech: Spontaneous and fluid Thought processes: Linear and logical MSK: Smooth and coordinated gait, no signs of tremors or involuntary orofacial movements Thought content: Future orientated Abstract reasoning, and computation: Intact Description of associations: Intact Description of abnormal or psychotic thoughts: Denies any suicidal or homicidal ideation. Denies any auditory or visual hallucinations. Does not appear to be responding to internal stimuli. Does not appear to be endorsing any bizarre or paranoid ideation. Judgment: fair Insight: fair Orientation: Alert and orientated 3 Cognition: Grossly normal Recent and remote memory: Intact Attention span and concentration: Intact Fund of knowledge: Adequate Mood: "okay" Affect: Euthymic with a full range Diagnoses Bipolar disorder, last episode depressed, in remission of unspecified degree Alcohol use disorder, severe Assessment and Plan Bipolar disorder: Continue patients ziprasidone and lithium Alcohol use disorder, [facility] will likely arrange for addiction and potentially naltrexone Disposition The patient will need further assessment and interview as well as monitoring to determine that it is alcohol that is salient play rather than bipolar disorder as he does have confirmed bipolar disorder Problem List 1. Risk for suicide 2. Substance use Initial Treatment Plan 1. Patient was admitted on a 9.39 legal status. 2. Complete history was obtained. 3. With patients permission, family will be contacted and database will be expanded. 4. Patients medication regimen will be reviewed and changed accordingly. 5. Patient will be provided with protected environment. 6. Patient will be treated with individual, group, and milieu therapies. 7. Patient will receive supportive psych-education. 8. Discharge planning will commence immediately. 9. Outpatient follow-up treatment will be strongly recommended. 10. The initial treatment plan will focus initially on: Estimated Length Of Stay 3 days. Time Spent 70 minutes with greater than 50% of time spent on counseling/coordination of care Saturday Vital Signs Vital Signs Date Time Temp Pulse Resp B/P (MAP) Pulse Ox O2 Delivery O2 Flow Rate FiO2 02/24/20 07:02 97.9 81 14 116/65 (82) Room Air 02/23/20 20:54 96 Laboratory Data 24H Labs Laboratory Tests 2 02/23/20 18:12: Bedside Glucose (Misc Panel) 131H FSBS Laboratory Tests Test 02/23/20 18:12 Range/Units Bedside Glucose (Misc Panel) 131 70-105 MG/DL Medications Scheduled Duloxetine Hcl (Duloxetine HCl) 30 Mg Capsule.dr, 30 MG PO DAILY, (Reported) Gabapentin (Gabapentin) 300 Mg Capsule, 300 MG PO TID, (Reported) Glipizide (Glipizide) 5 Mg Tablet, 5 MG PO DAILY, (Reported) Lamotrigine (Lamotrigine) 100 Mg Tablet, 150 MG PO DAILY, (Reported) Prazosin Hcl (Prazosin HCl) 2 Mg Capsule, 2 MG PO QHS, (Reported) Quetiapine Fumarate (Quetiapine Fumarate) 200 Mg Tablet, 600 MG PO QHS, (Reported) Simvastatin (Simvastatin) 20 Mg Tablet, 20 MG PO QHS, (Reported) Trazodone HCl (Trazodone HCl) 100 Mg Tablet, 100 MG PO QHS, (Reported) Scheduled PRN Meclizine HCl (Meclizine HCl) 25 Mg Tablet, 25 MG PO Q8HP PRN for DIZZINESS, (Reported) Miscellaneous Medications [Patient Comment] , (Reported) UNABLE TO VERIFY MED LIST WITH PATIENT. MED LIST OBTAINED FROM [facility] Allergies Coded Allergies: NSAIDS (Non-Steroidal Anti-Inflamma (Verified Allergy, Mild, STOMACH UPSET, 04/04/19) ibuprofen (Verified Allergy, Mild, STOMACH UPSET, 04/04/19) naproxen (Verified Allergy, Mild, CAN TAKE ASPIRIN, 04/04/19) shellfish derived (Verified Allergy, Unknown, 04/04/19) haloperidol (Verified Adverse Reaction, Severe, RASH AND INABILITY TO RELAX MUSCLES. EPS., 04/04/19) BERNABE MARSH DO February 24, 2020 09:14
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
[2020-02-24 15:50] VITALS: BP 135/98
[2020-02-24] MEDS: SIMVASTATIN 20 MG TAB PO SCH (21:03)
[2020-02-24] MEDS: PRAZOSIN 1 MG CAP PO SCH (21:03)
[2020-02-24] MEDS: traZODone 100 MG TAB PO SCH (21:04)
[2020-02-24] MEDS: QUEtiapine FUMARATE 200 MG TAB PO SCH (21:04)
[2020-02-25] MEDS ORDERED: diphenhydrAMINE 50MG CAP As Ordered ONE (00:13)
[2020-02-25] MEDS ORDERED: OLANZapine ORAL DISINTEGRATING TAB 5MG As Ordered ONE (00:13)
[2020-02-25] MEDS ORDERED: diphenhydrAMINE 50MG CAP PO ONE (00:15)
[2020-02-25] MEDS ORDERED: OLANZapine ORAL DISINTEGRATING TAB 5MG PO ONE (00:15)
[2020-02-25 06:13] VITALS: BP 126/84
[2020-02-25] MEDS: glipiZIDE (GLUCOTROL) 5 MG TAB PO SCH (06:50)
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
[2020-02-25] MEDS: GABAPENTIN 300 MG CAP PO SCH ×3 (09:49→20:30)
[2020-02-25] MEDS: DULoxetine 30 MG CAP (CYMBALTA) PO SCH (09:49)
[2020-02-25] MEDS: lamoTRIgine 100MG TAB PO SCH (09:49)
[2020-02-25 16:06] VITALS: BP 143/54
[2020-02-25] MEDS: SIMVASTATIN 20 MG TAB PO SCH (20:30)
[2020-02-25] MEDS ORDERED: diphenhydrAMINE 50MG CAP PO STA (21:32)
[2020-02-25] MEDS ORDERED: LORazepam 2 MG TAB PO STA (21:32)
[2020-02-25] MEDS: PRAZOSIN 1 MG CAP PO SCH (21:40)
[2020-02-25] MEDS: QUEtiapine FUMARATE 200 MG TAB PO SCH (21:40)
[2020-02-25] MEDS: traZODone 100 MG TAB PO SCH (21:40)
[2020-02-26 06:04] VITALS: BP 139/73
[2020-02-26] MEDS: glipiZIDE (GLUCOTROL) 5 MG TAB PO SCH (07:06)
[2020-02-26] MEDS: lamoTRIgine 100MG TAB PO SCH (09:19)
[2020-02-26] MEDS: DULoxetine 30 MG CAP (CYMBALTA) PO SCH (09:20)
[2020-02-26] MEDS: GABAPENTIN 300 MG CAP PO SCH ×3 (09:20→21:39)
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
[2020-02-26] MEDS: traZODone 100 MG TAB PO SCH (21:39)
[2020-02-26] MEDS: SIMVASTATIN 20 MG TAB PO SCH (21:39)
[2020-02-26] MEDS: QUEtiapine FUMARATE 200 MG TAB PO SCH (21:39)
[2020-02-26] MEDS: PRAZOSIN 1 MG CAP PO SCH (21:39)
[2020-02-27] MEDS: glipiZIDE (GLUCOTROL) 5 MG TAB PO SCH (06:48)
[2020-02-27] MEDS: lamoTRIgine 100MG TAB PO SCH (09:02)
[2020-02-27] MEDS: DULoxetine 30 MG CAP (CYMBALTA) PO SCH (09:02)
[2020-02-27] MEDS: GABAPENTIN 300 MG CAP PO SCH ×3 (09:02→21:44)
--- NOTE | 2020-02-27 11:50 | MHIPNPDOC ---
[facility] Progress Note Progress Note Inpatient Progress Note Iris Melton MRN: N/A Date of : N/A Date of Service: 02/27/2020 History of Present Illness The patient, a well-known 54-year-old woman, presents after being found wandering aimlessly, she lives at the [facility] now and she had been found wandering after a missing persons reported being called in as she had wandered unusually and was quite paranoid and bizarre when she was downstairs in the ER and was admitted out of abundance of caution. The patient was met with. She reports she was unclear why she was admitted and reports that she doesn't remember any particular psychotic things going on, but does report that she wants to live with her foster father, but then had fears about her ex- trying to kill her. 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 Reports no changes in her symptoms from previous admission. Psychosocial information is extracted from previous and update as appropriate. Interval History The patient is met with. She has had multiple episodes of being paranoid and confused with staff. She states she does not remember this. She otherwise states she is doing "okay." She has no complaints today and reports that she is still motivated to help figure out what is going on with her. Her EEG has been taken but no results at this time. Review Of Systems General: Denies fever or appetite changes Cardiovascular: Denies Chest pain or palpations GI: Denies Nausea, vomiting, or bowel changes Respiratory: Denies shortness of breath or cough Neuro: Denies dizziness, tremors Derm: Denies any rashes or pruritus : Denies any dysuria or urinary problems MSK: Denies any muscle tightness or stiffness HEENT: Denies any vision changes or headaches Psychotherapy None on this visit. Vital Signs Reviewed. Mental Status Examination General: Well dressed with good hygiene Speech: Spontaneous and fluid Thought processes: Linear and logical MSK: Smooth and coordinated gait, no signs of tremors or involuntary orofacial movements Thought content: Future orientated Abstract reasoning, and computation: Intact Description of associations: Intact Description of abnormal or psychotic thoughts: Denies any suicidal or homicidal ideation. Denies any auditory or visual hallucinations. Does not appear to be responding to internal stimuli. Does not appear to be endorsing any bizarre or paranoid ideation. Judgment: fair Insight: fair Orientation: Alert and orientated 3 Cognition: Grossly normal Recent and remote memory: Intact Attention span and concentration: Intact Fund of knowledge: Adequate Mood: "okay" Affect: Euthymic with a full range Diagnoses Unspecified psychotic disorder. Organic versus substance-induced. PTSD, chronic. Polysubstance use. Assessment and Plan Unspecified psychotic disorder: We will continue to wait for EEG results. Symptoms are highly consistent with a seizure like phenomenon with transient psychotic episodes during the day. PTSD, chronic. Continue home medications. Polysubstance use: Unclear if clinically relevant this time. Will monitor closely and treat any withdrawal symptoms. Disposition We will need continued inpatient care in order to ascertain the exact cause of her presentation to treat effectively to reduce the chance of readmission as she has had multiple readmissions and she still is having transient psychotic phenomenon despite her normal mental status in front of me. Time Spent 15 minutes. Saturday Vital Signs Vital Signs Date Time Temp Pulse Resp B/P (MAP) Pulse Ox O2 Delivery O2 Flow Rate FiO2 02/26/20 21:39 154/73 02/26/20 06:04 97.6 79 16 97 Room Air Current Medications Current Medications Medications (Trade) Dose Ordered Sig/Wagner Route PRN Reason Start Time Stop Time Status Last Admin Dose Admin Acetaminophen (Tylenol Tab) 650 mg Q6HP PRN PO HEADACHE or DISCOMFORT 02/23/20 16:15 Al Hydrox/Mg Hydrox/Simethicone (Mylanta) 30 ml Q4HP PRN PO HEARTBURN/INDIGESTION 02/23/20 16:15 Diphenhydramine HCl (Benadryl) 50 mg STAT STAT PO 02/25/20 21:32 02/25/20 21:34 DC 02/25/20 21:41 Duloxetine HCl (Cymbalta) 60 mg DAILY PO 02/24/20 09:00 02/27/20 09:02 Gabapentin (Neurontin) 300 mg TID PO 02/23/20 09:00 02/23/20 20:44 DC 02/23/20 15:25 Gabapentin (Neurontin) 300 mg TID PO 02/23/20 21:00 02/27/20 09:02 Glipizide (Glucotrol) 5 mg DAILY@0730 PO 02/24/20 07:30 5/9/20 06:48 Haloperidol (Haldol) 10 mg STAT STAT PO 02/25/20 21:32 02/25/20 21:34 DC 02/25/20 21:41 Home Med (Med Rec Complete!) ASDIRECTED XX 02/22/20 23:00 02/22/20 23:04 DC Lamotrigine (LaMICtal) 150 mg QAM PO 02/24/20 09:00 02/27/20 09:02 Lorazepam (Ativan) 2 mg STAT STAT PO 02/25/20 21:32 02/25/20 21:34 DC 02/25/20 21:41 Magnesium Hydroxide (Milk Of Magnesia) 30 ml DAILYPRN PRN PO CONSTIPATION 02/23/20 16:15 Meclizine HCl (Antivert) 25 mg Q8HP PRN PO DIZZINESS 02/23/20 21:00 Prazosin HCl (Minipress) 2 mg QHS PO 02/23/20 21:00 02/26/20 21:39 Quetiapine Fumarate (SEROquel) 600 mg QHS PO 02/23/20 21:00 02/26/20 21:39 Simvastatin (Zocor) 20 mg QHS PO 02/23/20 21:00 02/26/20 21:39 Trazodone HCl (Desyrel) 50 mg QHSP PRN PO INSOMNIA 02/23/20 16:15 02/23/20 20:54 DC Trazodone HCl (Desyrel) 100 mg QHS PO 02/23/20 21:00 02/26/20 21:39 Allergies Coded Allergies: NSAIDS (Non-Steroidal Anti-Inflamma (Verified Allergy, Mild, STOMACH UPSET, 04/04/19) ibuprofen (Verified Allergy, Mild, STOMACH UPSET, 04/04/19) naproxen (Verified Allergy, Mild, CAN TAKE ASPIRIN, 04/04/19) shellfish derived (Verified Allergy, Unknown, 04/04/19) haloperidol (Verified Adverse Reaction, Severe, RASH AND INABILITY TO RELAX MUSCLES. EPS., 04/04/19) BERNABE MARSH DO February 27, 2020 11:50
[2020-02-27 16:13] VITALS: BP 134/71
[2020-02-27] MEDS: QUEtiapine FUMARATE 200 MG TAB PO SCH (21:44)
[2020-02-27] MEDS: PRAZOSIN 1 MG CAP PO SCH (21:44)
[2020-02-27] MEDS: traZODone 100 MG TAB PO SCH (21:44)
[2020-02-27] MEDS: SIMVASTATIN 20 MG TAB PO SCH (21:45)
[2020-02-28 06:21] VITALS: BP 146/68
[2020-02-28 06:25] VITALS: BP 161/72
[2020-02-28] MEDS: glipiZIDE (GLUCOTROL) 5 MG TAB PO SCH (06:46)
[2020-02-28] MEDS: lamoTRIgine 100MG TAB PO SCH (08:41)
[2020-02-28] MEDS: DULoxetine 30 MG CAP (CYMBALTA) PO SCH (08:41)
[2020-02-28] MEDS: GABAPENTIN 300 MG CAP PO SCH ×3 (08:41→21:33)
[2020-02-28 15:20] VITALS: BP 131/85
[2020-02-28] MEDS: QUEtiapine FUMARATE 200 MG TAB PO SCH (21:32)
[2020-02-28] MEDS: traZODone 100 MG TAB PO SCH (21:33)
[2020-02-28] MEDS: SIMVASTATIN 20 MG TAB PO SCH (21:33)
[2020-02-28] MEDS: PRAZOSIN 1 MG CAP PO SCH (21:33)
[2020-02-29 06:12] VITALS: BP 140/70
[2020-02-29] MEDS: glipiZIDE (GLUCOTROL) 5 MG TAB PO SCH (06:51)
[2020-02-29] MEDS: ACETAMINOPHEN TAB 650MG DOSE (2X325MG) PO PRN (08:52)
[2020-02-29] MEDS: GABAPENTIN 300 MG CAP PO SCH ×3 (08:52→21:33)
[2020-02-29] MEDS: lamoTRIgine 100MG TAB PO SCH (08:52)
[2020-02-29] MEDS: DULoxetine 30 MG CAP (CYMBALTA) PO SCH (08:53)
--- NOTE | 2020-02-29 09:49 | MHIPNPDOC ---
[facility] Progress Note Progress Note Inpatient Progress Note Iris Melton MRN: N/A Date of : N/A Date of Service: 02/29/2020 History of Present Illness The patient, a well-known 54-year-old woman, presents after being found wandering aimlessly, she lives at the [facility] house now and she had been found wandering after a missing persons reported being called in as she had wandered unusually and was quite paranoid and bizarre when she was downstairs in the ER and was admitted out of abundance of caution. The patient was met with. She reports she was unclear why she was admitted and reports that she doesn't remember any particular psychotic things going on, but does report that she wants to live with her foster father, but then had fears about her ex- trying to kill her. 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 Reports no changes in her symptoms from previous admission. Psychosocial information is extracted from previous and update as appropriate. Interval History The patient was met with today. She reports that she wants to go home with her father who she reports is her adoptive father. However, she has no contact information for this person. The patient has had some episodes of being bizarre. Her EEG is still pending. The patient was spoken with over the phone by [facility] where she was notably much different than her baseline per [facility]. Review Of Systems Denies any current physical complaints. Psychotherapy None on this visit. Vital Signs Reviewed. Mental Status Examination General: Well dressed with good hygiene Speech: Spontaneous and fluid Thought processes: Linear and logical MSK: Smooth and coordinated gait, no signs of tremors or involuntary orofacial movements Thought content: Future orientated Abstract reasoning, and computation: Intact Description of associations: Intact Description of abnormal or psychotic thoughts: Denies any suicidal or homicidal ideation. Denies any auditory or visual hallucinations. Does not appear to be responding to internal stimuli. Does not appear to be endorsing any bizarre or paranoid ideation. Judgment: Limited. Insight: Limited. Orientation: Alert and orientated 3 Cognition: Grossly normal Recent and remote memory: Intact Attention span and concentration: Intact Fund of knowledge: Adequate Mood: "okay" Affect: Euthymic with a full range Diagnoses Unspecified psychotic disorder. Organic versus substance-induced. PTSD, chronic. Polysubstance use. Assessment and Plan Unspecified psychotic disorder: Awaiting EEG results, however, patient is still unable to cooperate in any potential discharge. She continues to state that she wishes to go home, but she is not able to participate in any meaningful process. We will continue to wait for EEG results. Symptoms are highly consistent with a seizure like phenomenon with transient psychotic episodes during the day. PTSD, chronic. Continue home medications. Polysubstance use: Unclear if clinically relevant this time. Will monitor closely and treat any withdrawal symptoms. Disposition Patient will need to be retained further as she is not able to specify any specific spot to go to and she might be so quite paranoid and confused. Time Spent 15 minutes. Saturday Vital Signs Vital Signs Date Time Temp Pulse Resp B/P (MAP) Pulse Ox O2 Delivery O2 Flow Rate FiO2 02/29/20 06:12 96.8 86 12 140/70 (93) 93 Room Air Current Medications Current Medications Medications (Trade) Dose Ordered Sig/Wagner Route PRN Reason Start Time Stop Time Status Last Admin Dose Admin Acetaminophen (Tylenol Tab) 650 mg Q6HP PRN PO HEADACHE or DISCOMFORT 02/23/20 16:15 02/29/20 08:52 Al Hydrox/Mg Hydrox/Simethicone (Mylanta) 30 ml Q4HP PRN PO HEARTBURN/INDIGESTION 02/23/20 16:15 Diphenhydramine HCl (Benadryl) 50 mg STAT STAT PO 02/25/20 21:32 02/25/20 21:34 DC 02/25/20 21:41 Duloxetine HCl (Cymbalta) 60 mg DAILY PO 02/24/20 09:00 02/29/20 08:53 Gabapentin (Neurontin) 300 mg TID PO 02/23/20 09:00 02/23/20 20:44 DC 02/23/20 15:25 Gabapentin (Neurontin) 300 mg TID PO 02/23/20 21:00 02/29/20 08:52 Glipizide (Glucotrol) 5 mg DAILY@0730 PO 02/24/20 07:30 02/29/20 06:51 Haloperidol (Haldol) 10 mg STAT STAT PO 02/25/20 21:32 02/25/20 21:34 DC 02/25/20 21:41 Home Med (Med Rec Complete!) ASDIRECTED XX 02/22/20 23:00 02/22/20 23:04 DC Lamotrigine (LaMICtal) 150 mg QAM PO 02/24/20 09:00 02/29/20 08:52 Lorazepam (Ativan) 2 mg STAT STAT PO 02/25/20 21:32 02/25/20 21:34 DC 02/25/20 21:41 Magnesium Hydroxide (Milk Of Magnesia) 30 ml DAILYPRN PRN PO CONSTIPATION 02/23/20 16:15 Meclizine HCl (Antivert) 25 mg Q8HP PRN PO DIZZINESS 02/23/20 21:00 Prazosin HCl (Minipress) 2 mg QHS PO 02/23/20 21:00 02/28/20 21:33 Quetiapine Fumarate (SEROquel) 600 mg QHS PO 02/23/20 21:00 02/28/20 21:32 Simvastatin (Zocor) 20 mg QHS PO 02/23/20 21:00 02/28/20 21:33 Trazodone HCl (Desyrel) 50 mg QHSP PRN PO INSOMNIA 02/23/20 16:15 02/23/20 20:54 DC Trazodone HCl (Desyrel) 100 mg QHS PO 02/23/20 21:00 02/28/20 21:33 Allergies Coded Allergies: NSAIDS (Non-Steroidal Anti-Inflamma (Verified Allergy, Mild, STOMACH UPSE T, 04/04/19) ibuprofen (Verified Allergy, Mild, STOMACH UPSET, 04/04/19) naproxen (Verified Allergy, Mild, CAN TAKE ASPIRIN, 04/04/19) shellfish derived (Verified Allergy, Unknown, 04/04/19) haloperidol (Verified Adverse Reaction, Severe, RASH AND INABILITY TO RELAX MUSCLES. EPS., 04/04/19) BERNABE MARSH DO February 29, 2020 09:49
[2020-02-29 16:32] VITALS: BP 140/69
--- NOTE | 2020-02-29 21:26 | EEG ---
DATE OF PROCEDURE: 02/26/2020 REFERRING PHYSICIAN: Dr. Donald Jones DIAGNOSIS: Seizure. EEG NUMBER: [id number] HISTORY: The patient is a 54-year-old woman who was found wandering aimlessly and was admitted to [facility] mental health unit. She was wandering around paranoid and has a history of post-traumatic stress disorder and unspecified psychotic disorder. She is currently taking Cymbalta, Neurontin, glipizide, Lamictal, Seroquel, trazodone, Mylanta. TECHNICAL DESCRIPTION: This digital EEG was recorded by 21 scalp, ear and two EKG electrodes and was reviewed in bipolar and referential montages following reformatting in 10-20 international electrode placement system. INTERPRETATION: The patient was noted to be in awake and drowsy states during this EEG. Resting awake background rhythm consisted of well-formed posterior dominant rhythm with anterior/posterior gradient comprising of 9 Hz alpha activity measuring 15-40 microvolts in amplitude, which was symmetric and reactive to eye opening. Attenuation of posterior dominant rhythm was seen during transition into drowsiness. Stage I and II sleep were reviewed and were symmetric bilaterally. Hyperventilation and photic stimulation remained unremarkable. EKG revealed normal sinus rhythm. No focal, lateralizing or epileptiform abnormalities were seen. No relevant clinical activity was noted. CONCLUSION: This EEG in awake, drowsy states, stage I and II sleep is within normal limits.
[2020-02-29] MEDS: PRAZOSIN 1 MG CAP PO SCH (21:33)
[2020-02-29] MEDS: SIMVASTATIN 20 MG TAB PO SCH (21:33)
[2020-02-29] MEDS: traZODone 100 MG TAB PO SCH (21:33)
[2020-02-29] MEDS: QUEtiapine FUMARATE 200 MG TAB PO SCH (21:33)
[2020-03-01 06:15] VITALS: BP 124/62
[2020-03-01] MEDS: glipiZIDE (GLUCOTROL) 5 MG TAB PO SCH (06:35)
--- NOTE | 2020-03-01 09:20 | MHIPNPDOC ---
[facility] Progress Note Progress Note Inpatient Progress Note Iris Melton MRN: N/A Date of : N/A Date of Service: 03/01/2020 History of Present Illness The patient, a well-known 54-year-old woman, presents after being found wandering aimlessly, she lives at the [facility] house now and she had been found wandering after a missing persons reported being called in as she had wandered unusually and was quite paranoid and bizarre when she was downstairs in the ER and was admitted out of abundance of caution. The patient was met with. She reports she was unclear why she was admitted and reports that she doesn't remember any particular psychotic things going on, but does report that she wants to live with her foster father, but then had fears about her ex- trying to kill her. 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 Reports no changes in her symptoms from previous admission. Psychosocial information is extracted from previous and update as appropriate. Interval History The patient is met with today. Her EEG came back negative for any seizure disorder. The patient was discussed with about discharge plans, however, she reports she does not want to go back to [facility] and describes talking to various people who she has not talked to. She generally appears unable to rectify any discharge plan and appears to be somewhat delusional, it's unclear if these are fixed. Review Of Systems Reports no physical complaints at this time. Psychotherapy None on this visit. Vital Signs Reviewed. Mental Status Examination General: Well dressed with good hygiene Speech: Spontaneous and fluid Thought processes: Linear and logical MSK: Smooth and coordinated gait, no signs of tremors or involuntary orofacial movements Thought content: Future orientated Abstract reasoning, and computation: Intact Description of associations: Intact Description of abnormal or psychotic thoughts: Denies any suicidal or homicidal ideation. Denies any auditory or visual hallucinations. Does not appear to be responding to internal stimuli. Does not appear to be endorsing any bizarre or paranoid ideation. Judgment: Limited. Insight: Limited. Orientation: Alert and orientated 3 Cognition: Grossly normal Recent and remote memory: Intact Attention span and concentration: Intact Fund of knowledge: Adequate Mood: "okay" Affect: Euthymic with a full range Diagnoses Unspecified psychotic disorder. Organic versus substance-induced. PTSD, chronic. Polysubstance use. Assessment and Plan Unspecified psychotic disorder: No change in EEG results suggesting organic disorder. We will consider changing patient's medications, however, a safe discharge plan will need to be created. We will continue to wait for EEG results. Symptoms are highly consistent with a seizure like phenomenon with transient psychotic episodes during the day. PTSD, chronic. Continue home medications. Polysubstance use: Unclear if clinically relevant this time. Will monitor closely and treat any withdrawal symptoms. Disposition We will need to determine if patient is willing to go back to [facility], if not then will need to ascertain if there is reasonable alternatives as although she has some delusions it's not clear that she would meet full inpatient involuntary criteria to be continued. Time Spent 15 minutes. Saturday Vital Signs Vital Signs Date Time Temp Pulse Resp B/P (MAP) Pulse Ox O2 Delivery O2 Flow Rate FiO2 03/01/20 06:15 98.3 84 14 124/62 (82) Room Air 02/29/20 06:12 93 Current Medications Current Medications Medications (Trade) Dose Ordered Sig/Wagner Route PRN Reason Start Time Stop Time Status Last Admin Dose Admin Acetaminophen (Tylenol Tab) 650 mg Q6HP PRN PO HEADACHE or DISCOMFORT 02/23/20 16:15 02/29/20 08:52 Al Hydrox/Mg Hydrox/Simethicone (Mylanta) 30 ml Q4HP PRN PO HEARTBURN/INDIGESTION 02/23/20 16:15 Diphenhydramine HCl (Benadryl) 50 mg STAT STAT PO 02/25/20 21:32 02/25/20 21:34 DC 02/25/20 21:41 Duloxetine HCl (Cymbalta) 60 mg DAILY PO 02/24/20 09:00 02/29/20 08:53 Gabapentin (Neurontin) 300 mg TID PO 02/23/20 09:00 02/23/20 20:44 DC 02/23/20 15:25 Gabapentin (Neurontin) 300 mg TID PO 02/23/20 21:00 02/29/20 21:33 Glipizide (Glucotrol) 5 mg DAILY@0730 PO 02/24/20 07:30 03/01/20 06:35 Haloperidol (Haldol) 10 mg STAT STAT PO 02/25/20 21:32 02/25/20 21:34 DC 02/25/20 21:41 Home Med (Med Rec Complete!) ASDIRECTED XX 02/22/20 23:00 02/22/20 23:04 DC Lamotrigine (LaMICtal) 150 mg QAM PO 02/24/20 09:00 02/29/20 10:25 DC 02/29/20 08:52 Lorazepam (Ativan) 2 mg STAT STAT PO 02/25/20 21:32 02/25/20 21:34 DC 02/25/20 21:41 Magnesium Hydroxide (Milk Of Magnesia) 30 ml DAILYPRN PRN PO CONSTIPATION 02/23/20 16:15 Meclizine HCl (Antivert) 25 mg Q8HP PRN PO DIZZINESS 02/23/20 21:00 Prazosin HCl (Minipress) 2 mg QHS PO 02/23/20 21:00 02/29/20 21:33 Quetiapine Fumarate (SEROquel) 600 mg QHS PO 02/23/20 21:00 02/29/20 21:33 Simvastatin (Zocor) 20 mg QHS PO 02/23/20 21:00 02/29/20 21:33 Trazodone HCl (Desyrel) 50 mg QHSP PRN PO INSOMNIA 02/23/20 16:15 02/23/20 20:54 DC Trazodone HCl (Desyrel) 100 mg QHS PO 02/23/20 21:00 02/29/20 21:33 Allergies Coded Allergies: NSAIDS (Non-Steroidal Anti-Inflamma (Verified Allergy, Mild, STOMACH UPSET, 04/04/19) ibuprofen (Verified Allergy, Mild, STOMACH UPSET, 04/04/19) naproxen (Verified Allergy, Mild, CAN TAKE ASPIRIN, 04/04/19) shellfish derived (Verified Allergy, Unknown, 04/04/19) haloperidol (Verified Adverse Reaction, Severe, RASH AND INABILITY TO RELAX MUSCLES. EPS., 04/04/19) BERNABE MARSH DO March 01, 2020 09:20
[2020-03-01] MEDS: GABAPENTIN 300 MG CAP PO SCH ×3 (09:33→21:48)
[2020-03-01] MEDS: DULoxetine 30 MG CAP (CYMBALTA) PO SCH (09:34)
[2020-03-01] MEDS: ACETAMINOPHEN TAB 650MG DOSE (2X325MG) PO PRN (15:47)
[2020-03-01 16:01] VITALS: BP 131/78
[2020-03-01] MEDS: SIMVASTATIN 20 MG TAB PO SCH (21:48)
[2020-03-01] MEDS: PRAZOSIN 1 MG CAP PO SCH (21:48)
[2020-03-01] MEDS: QUEtiapine FUMARATE 200 MG TAB PO SCH (21:48)
[2020-03-01] MEDS: traZODone 100 MG TAB PO SCH (21:48)
[2020-03-02 06:29] VITALS: BP 103/56
[2020-03-02] MEDS: glipiZIDE (GLUCOTROL) 5 MG TAB PO SCH (06:34)
[2020-03-02] MEDS: DULoxetine 30 MG CAP (CYMBALTA) PO SCH (09:22)
[2020-03-02] MEDS: GABAPENTIN 300 MG CAP PO SCH ×3 (09:22→21:51)
--- NOTE | 2020-03-02 09:57 | MHIPNPDOC ---
[facility] Progress Note Progress Note Inpatient Progress Note Iris Melton MRN: N/A Date of : N/A Date of Service: 03/02/2020 History of Present Illness The patient, a well-known 54-year-old woman, presents after being found wandering aimlessly, she lives at the [facility] now and she had been found wandering after a missing persons reported being called in as she had wandered unusually and was quite paranoid and bizarre when she was downstairs in the ER and was admitted out of abundance of caution. The patient was met with. She reports she was unclear why she was admitted and reports that she doesn't remember any particular psychotic things going on, but does report that she wants to live with her foster father, but then had fears about her ex- trying to kill her. 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 Reports no changes in her symptoms from previous admission. Psychosocial information is extracted from previous and update as appropriate. Interval History The patient was met with today. She is still quite bizarre and unable to reason out any particular discharge plan other than saying "she is working on it". She still has episodes of confusion and paranoia where she says bizarre things. Review Of Systems Denies any physical symptoms today. Psychotherapy None on this visit. Vital Signs Reviewed. Mental Status Examination General: Well dressed with good hygiene Speech: Spontaneous and fluid Thought processes: Somewhat bizarre. MSK: Smooth and coordinated gait, no signs of tremors or involuntary orofacial movements Thought content: Future orientated Abstract reasoning, and computation: Impaired. Description of associations: Loosened. Description of abnormal or psychotic thoughts: Denies any suicidal or homicidal ideation. Denies any auditory or visual hallucinations. Does not appear to be responding to internal stimuli. Does not appear to be endorsing any bizarre or paranoid ideation. Judgment: Limited. Insight: Limited. Orientation: Alert and orientated 3 Cognition: Grossly normal Recent and remote memory: Intact Attention span and concentration: Intact Fund of knowledge: Adequate Mood: "okay" Affect: Euthymic with a full range Diagnoses Unspecified psychotic disorder. Organic versus substance-induced. PTSD, chronic. Polysubstance use. copy sake is a copy Assessment and Plan Unspecified psychotic disorder: Increase Seroquel to 8 00 mg nightly. PTSD, chronic. Continue home medications. Polysubstance use: Unlikely to be clinically relevant. Disposition We will continue to attempt to create discharge plan for patient and create a reasonable plan, she does not appear to be able to participate in any reasonable discharge discussion at this time due to potential psychosis. Time Spent 15 minutes. Saturday Vital Signs Vital Signs Date Time Temp Pulse Resp B/P (MAP) Pulse Ox O2 Delivery O2 Flow Rate FiO2 03/02/20 06:29 97.6 85 14 103/56 (72) 03/01/20 06:15 Room Air 02/29/20 06:12 93 Current Medications Current Medications Medications (Trade) Dose Ordered Sig/Wagner Route PRN Reason Start Time Stop Time Status Last Admin Dose Admin Acetaminophen (Tylenol Tab) 650 mg Q6HP PRN PO HEADACHE or DISCOMFORT 02/23/20 16:15 03/01/20 15:47 Al Hydrox/Mg Hydrox/Simethicone (Mylanta) 30 ml Q4HP PRN PO HEARTBURN/INDIGESTION 02/23/20 16:15 Diphenhydramine HCl (Benadryl) 50 mg STAT STAT PO 02/25/20 21:32 02/25/20 21:34 DC 02/25/20 21:41 Duloxetine HCl (Cymbalta) 60 mg DAILY PO 02/24/20 09:00 03/02/20 09:22 Gabapentin (Neurontin) 300 mg TID PO 02/23/20 09:00 02/23/20 20:44 DC 02/23/20 15:25 Gabapentin (Neurontin) 300 mg TID PO 02/23/20 21:00 03/02/20 09:22 Glipizide (Glucotrol) 5 mg DAILY@0730 PO 02/24/20 07:30 03/02/20 06:34 Haloperidol (Haldol) 10 mg STAT STAT PO 02/25/20 21:32 02/25/20 21:34 DC 02/25/20 21:41 Home Med (Med Rec Complete!) ASDIRECTED XX 02/22/20 23:00 02/22/20 23:04 DC Lamotrigine (LaMICtal) 150 mg QAM PO 02/24/20 09:00 02/29/20 10:25 DC 02/29/20 08:52 Lorazepam (Ativan) 2 mg STAT STAT PO 02/25/20 21:32 02/25/20 21:34 DC 02/25/20 21:41 Magnesium Hydroxide (Milk Of Magnesia) 30 ml DAILYPRN PRN PO CONSTIPATION 02/23/20 16:15 Meclizine HCl (Antivert) 25 mg Q8HP PRN PO DIZZINESS 02/23/20 21:00 Prazosin HCl (Minipress) 2 mg QHS PO 02/23/20 21:00 03/01/20 21:48 Quetiapine Fumarate (SEROquel) 600 mg QHS PO 02/23/20 21:00 03/01/20 21:48 Simvastatin (Zocor) 20 mg QHS PO 02/23/20 21:00 03/01/20 21:48 Trazodone HCl (Desyrel) 50 mg QHSP PRN PO INSOMNIA 02/23/20 16:15 02/23/20 20:54 DC Trazodone HCl (Desyrel) 100 mg QHS PO 02/23/20 21:00 03/01/20 21:48 Allergies Coded Allergies: NSAIDS (Non-Steroidal Anti-Inflamma (Verified Allergy, Mild, STOMACH UPSET, 04/04/19) ibuprofen (Verified Allergy, Mild, STOMACH UPSET, 04/04/19) naproxen (Verified Allergy, Mild, CAN TAKE ASPIRIN, 04/04/19) shellfish derived (Verified Allergy, Unknown, 04/04/19) haloperidol (Verified Adverse Reaction, Severe, RASH AND INABILITY TO RELAX MUSCLES. EPS., 04/04/19) BERNABE MARSH DO March 02, 2020 09:57
[2020-03-02] MEDS: ACETAMINOPHEN TAB 650MG DOSE (2X325MG) PO PRN (10:22)
[2020-03-02 16:01] VITALS: BP 130/71
[2020-03-02] MEDS: QUEtiapine FUMARATE 200 MG TAB PO SCH (21:51)
[2020-03-02] MEDS: SIMVASTATIN 20 MG TAB PO SCH (21:52)
[2020-03-02] MEDS: PRAZOSIN 1 MG CAP PO SCH (21:52)
[2020-03-02] MEDS: traZODone 100 MG TAB PO SCH (21:52)
[2020-03-03 06:33] VITALS: BP 131/69
[2020-03-03] MEDS: glipiZIDE (GLUCOTROL) 5 MG TAB PO SCH (06:38)
[2020-03-03] MEDS: DULoxetine 30 MG CAP (CYMBALTA) PO SCH (08:55)
[2020-03-03] MEDS: GABAPENTIN 300 MG CAP PO SCH ×3 (08:55→21:35)
--- NOTE | 2020-03-03 09:52 | MHIPNPDOC ---
[facility] Progress Note Progress Note Inpatient Progress Note Iris Melton MRN: N/A Date of : N/A Date of Service: 03/03/2020 History of Present Illness The patient, a well-known 54-year-old woman, presents after being found wandering aimlessly, she lives at the [facility] now and she had been found wandering after a missing persons reported being called in as she had wandered unusually and was quite paranoid and bizarre when she was downstairs in the ER and was admitted out of abundance of caution. The patient was met with. She reports she was unclear why she was admitted and reports that she doesn't remember any particular psychotic things going on, but does report that she wants to live with her foster father, but then had fears about her ex- trying to kill her. 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 Reports no changes in her symptoms from previous admission. Psychosocial information is extracted from previous and update as appropriate. Interval History The patient was met with today . She continues to report unusual and strange conversations that she has not had. She reports she had spoken with her adoptive parents was unable to explain how she had. She has been notably bizarre on the unit although upset at moments for unusual reasons. Review Of Systems Denies any physical side effects from any problems. Psychotherapy None on this visit. Vital Signs Reviewed. Mental Status Examination General: Well dressed with good hygiene Speech: Spontaneous and fluid Thought processes: Somewhat bizarre. MSK: Smooth and coordinated gait, no signs of tremors or involuntary orofacial movements Thought content: Future orientated Abstract reasoning, and computation: Impaired. Description of associations: Loosened. Description of abnormal or psychotic thoughts: Denies any suicidal or homicidal ideation. Denies any auditory or visual hallucinations. Does not appear to be responding to internal stimuli. Does not appear to be endorsing any bizarre or paranoid ideation. Judgment: Limited. Insight: Limited. Orientation: Alert and orientated 3 Cognition: Grossly normal Recent and remote memory: Intact Attention span and concentration: Intact Fund of knowledge: Adequate Mood: "okay" Affect: Euthymic with a full range Diagnoses Unspecified psychotic disorder. Organic versus substance-induced. PTSD, chronic. Polysubstance use. Assessment and Plan Unspecified psychotic disorder: continue Seroquel to 800 mg nightly in addition to previous PTSD medications. PTSD, chronic. Continue home medications. Polysubstance use: Unlikely to be clinically relevant. Disposition Patient will still need to continue inpatient admission in order to make a safe discharge plan. Will attempt to augment her antipsychotic as it appears she is to distorted to make a safe discharge plan. Time Spent 15 minutes. Vital Signs Vital Signs Date Time Temp Pulse Resp B/P (MAP) Pulse Ox O2 Delivery O2 Flow Rate FiO2 03/03/20 06:33 97.9 81 14 131/69 (89) 03/01/20 06:15 Room Air 02/29/20 06:12 93 Current Medications Current Medications Medications (Trade) Dose Ordered Sig/Wagner Route PRN Reason Start Time Stop Time Status Last Admin Dose Admin Acetaminophen (Tylenol Tab) 650 mg Q6HP PRN PO HEADACHE or DISCOMFORT 02/23/20 16:15 03/02/20 10:22 Al Hydrox/Mg Hydrox/Simethicone (Mylanta) 30 ml Q4HP PRN PO HEARTBURN/INDIGESTION 02/23/20 16:15 Diphenhydramine HCl (Benadryl) 50 mg STAT STAT PO 02/25/20 21:32 02/25/20 21:34 DC 02/25/20 21:41 Duloxetine HCl (Cymbalta) 60 mg DAILY PO 02/24/20 09:00 03/03/20 08:55 Gabapentin (Neurontin) 300 mg TID PO 02/23/20 09:00 02/23/20 20:44 DC 02/23/20 15:25 Gabapentin (Neurontin) 300 mg TID PO 02/23/20 21:00 03/03/20 08:55 Glipizide (Glucotrol) 5 mg DAILY@0730 PO 02/24/20 07:30 03/03/20 06:38 Haloperidol (Haldol) 10 mg STAT STAT PO 02/25/20 21:32 02/25/20 21:34 DC 02/25/20 21:41 Home Med (Med Rec Complete!) ASDIRECTED XX 02/22/20 23:00 02/22/20 23:04 DC Lamotrigine (LaMICtal) 150 mg QAM PO 02/24/20 09:00 02/29/20 10:25 DC 02/29/20 08:52 Lorazepam (Ativan) 2 mg STAT STAT PO 02/25/20 21:32 02/25/20 21:34 DC 02/25/20 21:41 Magnesium Hydroxide (Milk Of Magnesia) 30 ml DAILYPRN PRN PO CONSTIPATION 02/23/20 16:15 Meclizine HCl (Antivert) 25 mg Q8HP PRN PO DIZZINESS 02/23/20 21:00 Prazosin HCl (Minipress) 2 mg QHS PO 02/23/20 21:00 03/02/20 21:52 Quetiapine Fumarate (SEROquel) 600 mg QHS PO 02/23/20 21:00 03/02/20 10:27 DC 03/01/20 21:48 Quetiapine Fumarate (SEROquel) 800 mg QHS PO 03/02/20 21:00 03/02/20 21:51 Simvastatin (Zocor) 20 mg QHS PO 02/23/20 21:00 03/02/20 21:52 Trazodone HCl (Desyrel) 50 mg QHSP PRN PO INSOMNIA 02/23/20 16:15 02/23/20 20:54 DC Trazodone HCl (Desyrel) 100 mg QHS PO 02/23/20 21:00 03/02/20 21:52 Allergies Coded Allergies: NSAIDS (Non-Steroidal Anti-Inflamma (Verified Allergy, Mild, STOMACH UPSET, 04/04/19) ibuprofen (Verified Allergy, Mild, STOMACH UPSET, 04/04/19) naproxen (Verified Allergy, Mild, CAN TAKE ASPIRIN, 04/04/19) shellfish derived (Verified Allergy, Unknown, 04/04/19) haloperidol (Verified Adverse Reaction, Severe, RASH AND INABILITY TO RELAX MUSCLES. EPS., 04/04/19) BERNABE MARSH DO March 03, 2020 09:52
[2020-03-03 16:21] VITALS: BP 136/78
[2020-03-03] MEDS: ACETAMINOPHEN TAB 650MG DOSE (2X325MG) PO PRN (18:32)
[2020-03-03] MEDS: traZODone 100 MG TAB PO SCH (21:35)
[2020-03-03] MEDS: SIMVASTATIN 20 MG TAB PO SCH (21:35)
[2020-03-03] MEDS: QUEtiapine FUMARATE 200 MG TAB PO SCH (21:36)
[2020-03-03] MEDS: PRAZOSIN 1 MG CAP PO SCH (21:36)
[2020-03-04 06:16] VITALS: BP 137/83
[2020-03-04] MEDS: glipiZIDE (GLUCOTROL) 5 MG TAB PO SCH (08:23)
[2020-03-04] MEDS: DULoxetine 30 MG CAP (CYMBALTA) PO SCH (08:23)
[2020-03-04] MEDS: GABAPENTIN 300 MG CAP PO SCH ×3 (08:23→21:36)
--- NOTE | 2020-03-04 09:10 | MHIPNPDOC ---
[facility] Progress Note Progress Note Inpatient Progress Note Iris Melton MRN: N/A Date of : N/A Date of Service: 03/04/2020 History of Present Illness The patient, a well-known 54-year-old woman, presents after being found wandering aimlessly, she lives at the [facility] now and she had been found wandering after a missing persons reported being called in as she had wandered unusually and was quite paranoid and bizarre when she was downstairs in the ER and was admitted out of abundance of caution. The patient was met with. She reports she was unclear why she was admitted and reports that she doesn't remember any particular psychotic things going on, but does report that she wants to live with her foster father, but then had fears about her ex- trying to kill her. 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 Reports no changes in her symptoms from previous admission. Psychosocial information is extracted from previous and update as appropriate. Interval History The patient was met with today. She is still somewhat bizarre and reports no major changes. Report she talks to various people, but she has not made any particular cause. It appears that she is still quite distorted and unable to rectify any unusual behavior that she's been engaging on the unit. Review Of Systems General: Denies fever or appetite changes Cardiovascular: Denies Chest pain or palpations GI: Denies Nausea, vomiting, or bowel changes Respiratory: Denies shortness of breath or cough Neuro: Denies dizziness, tremors Derm: Denies any rashes or pruritus : Denies any dysuria or urinary problems MSK: Denies any muscle tightness or stiffness HEENT: Denies any vision changes or headaches Psychotherapy None on this visit. Vital Signs Reviewed. Mental Status Examination General: Well dressed with good hygiene Speech: Spontaneous and fluid Thought processes: Somewhat bizarre. MSK: Smooth and coordinated gait, no signs of tremors or involuntary orofacial movements Thought content: Future orientated Abstract reasoning, and computation: Impaired. Description of associations: Loosened. Description of abnormal or psychotic thoughts: Denies any suicidal or homicidal ideation. Denies any auditory or visual hallucinations. Does not appear to be responding to internal stimuli. Does not appear to be endorsing any bizarre or paranoid ideation. Judgment: Limited. Insight: Limited. Orientation: Alert and orientated 3 Cognition: Grossly normal Recent and remote memory: Intact Attention span and concentration: Intact Fund of knowledge: Adequate Mood: "okay" Affect: Flat. Diagnoses Unspecified psychotic disorder. Organic versus substance-induced. PTSD, chronic. Polysubstance use. Assessment and Plan Unspecified psychotic disorder: continue Seroquel to 800 mg nightly in addition to previous PTSD medications. PTSD, chronic. Continue home medications. Polysubstance use: Unlikely to be clinically relevant. Disposition Patient will still need to continue inpatient admission in order to make a safe discharge plan. Will attempt to augment her antipsychotic as it appears she is to distorted to make a safe discharge plan. Time Spent 15 minutes. Saturday Vital Signs Vital Signs Date Time Temp Pulse Resp B/P (MAP) Pulse Ox O2 Delivery O2 Flow Rate FiO2 03/04/20 06:16 98.0 94 12 137/83 (101) 95 Room Air Current Medications Current Medications Medications (Trade) Dose Ordered Sig/Wagner Route PRN Reason Start Time Stop Time Status Last Admin Dose Admin Acetaminophen (Tylenol Tab) 650 mg Q6HP PRN PO HEADACHE or DISCOMFORT 02/23/20 16:15 03/03/20 18:32 Al Hydrox/Mg Hydrox/Simethicone (Mylanta) 30 ml Q4HP PRN PO HEARTBURN/INDIGESTION 02/23/20 16:15 Diphenhydramine HCl (Benadryl) 50 mg STAT STAT PO 02/25/20 21:32 02/25/20 21:34 DC 02/25/20 21:41 Duloxetine HCl (Cymbalta) 60 mg DAILY PO 02/24/20 09:00 03/04/20 08:23 Gabapentin (Neurontin) 300 mg TID PO 02/23/20 09:00 02/23/20 20:44 DC 02/23/20 15:25 Gabapentin (Neurontin) 300 mg TID PO 02/23/20 21:00 03/04/20 08:23 Glipizide (Glucotrol) 5 mg DAILY@0730 PO 02/24/20 07:30 03/04/20 08:23 Haloperidol (Haldol) 10 mg STAT STAT PO 02/25/20 21:32 02/25/20 21:34 DC 02/25/20 21:41 Home Med (Med Rec Complete!) ASDIRECTED XX 02/22/20 23:00 02/22/20 23:04 DC Lamotrigine (LaMICtal) 150 mg QAM PO 02/24/20 09:00 02/29/20 10:25 DC 02/29/20 08:52 Lorazepam (Ativan) 2 mg STAT STAT PO 02/25/20 21:32 02/25/20 21:34 DC 02/25/20 21:41 Magnesium Hydroxide (Milk Of Magnesia) 30 ml DAILYPRN PRN PO CONSTIPATION 02/23/20 16:15 Meclizine HCl (Antivert) 25 mg Q8HP PRN PO DIZZINESS 02/23/20 21:00 Prazosin HCl (Minipress) 2 mg QHS PO 02/23/20 21:00 03/03/20 21:36 Quetiapine Fumarate (SEROquel) 600 mg QHS PO 02/23/20 21:00 03/02/20 10:27 DC 03/01/20 21:48 Quetiapine Fumarate (SEROquel) 800 mg QHS PO 03/02/20 21:00 03/03/20 21:36 Simvastatin (Zocor) 20 mg QHS PO 02/23/20 21:00 03/03/20 21:35 Trazodone HCl (Desyrel) 50 mg QHSP PRN PO INSOMNIA 02/23/20 16:15 02/23/20 20:54 DC Trazodone HCl (Desyrel) 100 mg QHS PO 02/23/20 21:00 03/03/20 21:35 Allergies Coded Allergies: NSAIDS (Non-Steroidal Anti-Inflamma (Verified Allergy, Mild, STOMACH UPSET, 04/04/19) ibuprofen (Verified Allergy, Mild, STOMACH UPSET, 04/04/19) naproxen (Verified Allergy, Mild, CAN TAKE ASPIRIN, 04/04/19) shellfish derived (Verified Allergy, Unknown, 04/04/19) haloperidol (Verified Adverse Reaction, Severe, RASH AND INABILITY TO RELAX MUSCLES. EPS., 04/04/19) BERNABE MARSH DO March 04, 2020 09:10
[2020-03-04 15:59] VITALS: BP 124/74
[2020-03-04] MEDS: ACETAMINOPHEN TAB 650MG DOSE (2X325MG) PO PRN (19:12)
[2020-03-04] MEDS: SIMVASTATIN 20 MG TAB PO SCH (21:36)
[2020-03-04] MEDS: QUEtiapine FUMARATE 200 MG TAB PO SCH (21:37)
[2020-03-04] MEDS: PRAZOSIN 1 MG CAP PO SCH (21:37)
[2020-03-04] MEDS: traZODone 100 MG TAB PO SCH (21:37)
[2020-03-05 06:30] VITALS: BP 142/67
[2020-03-05] MEDS: glipiZIDE (GLUCOTROL) 5 MG TAB PO SCH (06:50)
[2020-03-05] MEDS: GABAPENTIN 300 MG CAP PO SCH ×3 (08:16→21:55)
[2020-03-05] MEDS: DULoxetine 30 MG CAP (CYMBALTA) PO SCH (08:16)
[2020-03-05 16:10] VITALS: BP 138/70
[2020-03-05] MEDS: traZODone 100 MG TAB PO SCH (21:55)
[2020-03-05] MEDS: QUEtiapine FUMARATE 200 MG TAB PO SCH (21:55)
[2020-03-05] MEDS: PRAZOSIN 1 MG CAP PO SCH (21:55)
[2020-03-05] MEDS: SIMVASTATIN 20 MG TAB PO SCH (21:56)
[2020-03-06 06:19] VITALS: BP 136/69
[2020-03-06] MEDS: glipiZIDE (GLUCOTROL) 5 MG TAB PO SCH (06:41)
[2020-03-06] MEDS: GABAPENTIN 300 MG CAP PO SCH ×3 (08:36→21:40)
[2020-03-06] MEDS: DULoxetine 30 MG CAP (CYMBALTA) PO SCH (08:36)
[2020-03-06 16:03] VITALS: BP 137/88
[2020-03-06] MEDS: SIMVASTATIN 20 MG TAB PO SCH (21:40)
[2020-03-06] MEDS: traZODone 100 MG TAB PO SCH (21:40)
[2020-03-06] MEDS: PRAZOSIN 1 MG CAP PO SCH (21:40)
[2020-03-06] MEDS: QUEtiapine FUMARATE 200 MG TAB PO SCH (21:40)
[2020-03-07 06:25] VITALS: BP 131/77
[2020-03-07] MEDS: glipiZIDE (GLUCOTROL) 5 MG TAB PO SCH (06:36)
[2020-03-07] MEDS: DULoxetine 30 MG CAP (CYMBALTA) PO SCH (09:47)
[2020-03-07] MEDS: GABAPENTIN 300 MG CAP PO SCH ×3 (09:47→21:54)
[2020-03-07 15:39] VITALS: BP 146/81
[2020-03-07] MEDS ORDERED: hydrOXYzine 25 MG TAB PO PRN (20:15)
[2020-03-07 21:53] VITALS: BP 154/67
[2020-03-07] MEDS: QUEtiapine FUMARATE 200 MG TAB PO SCH (21:53)
[2020-03-07] MEDS: PRAZOSIN 1 MG CAP PO SCH (21:53)
[2020-03-07] MEDS: traZODone 100 MG TAB PO SCH (21:54)
[2020-03-07] MEDS: SIMVASTATIN 20 MG TAB PO SCH (21:54)
[2020-03-08 06:40] VITALS: BP 116/54
[2020-03-08] MEDS: DULoxetine 30 MG CAP (CYMBALTA) PO SCH (08:08)
[2020-03-08] MEDS: glipiZIDE (GLUCOTROL) 5 MG TAB PO SCH (08:08)
[2020-03-08] MEDS: GABAPENTIN 300 MG CAP PO SCH (08:08)
--- NOTE | 2020-03-08 09:18 | MHDSPDOC ---
[facility] Discharge Summary Discharge Summary DATE OF ADMISSION: February 23, 2020 at 16:11 DATE OF DISCHARGE: 03/08/2020 Discharge Iris Melton MRN: N/A Date of : N/A Date of Service: 03/08/2020 Diagnoses Malingering. PTSD, chronic. Polysubstance use. History of Present Illness The patient, a well-known 54-year-old woman, presents after being found wandering aimlessly, she lives at the [facility] house now and she had been found wandering after a missing persons reported being called in as she had wandered unusually and was quite paranoid and bizarre when she was downstairs in the ER and was admitted out of abundance of caution. The patient was met with. She reports she was unclear why she was admitted and reports that she doesn't remember any particular psychotic things going on, but does report that she wants to live with her foster father, but then had fears about her ex- trying to kill her. 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 Reports no changes in her symptoms from previous admission. Psychosocial information is extracted from previous and update as appropriate. Consultants Involved Hospitalist/PCP screening Treatment and Progress On The Unit The patient was admitted to the inpatient mental health unit. She had some unusual experiences of bizarreness, however, it was unclear as to the cause. She was continued on her home Seroquel, Lamictal, duloxetine and other medications without alteration. She had an EEG done due to the history temporal epilepsy of which was normal. The patient then was increased on her Seroquel to 800 mg. However, interestingly enough the patient refused to go back to the [facility] and wanted to go with some unspecified relative. She was unable to explain to us how she was planning to do this and had requested to leave. However, it became much more apparent over observation that these psychotic symptoms and paranoia were highly consistent and generally were designed in order to get our attention and to be primarily behavioral to continue her stay. She is primarily focused on attempting to get out of [facility] and to manipulate her living situation as has been her presentation before. Discharge Assessment The patient, a 54-year-old woman with a history of PTSD presents likely malingering in order to get her living situation changed. After an extensive workup and observation as well as treatment it becomes quite clear that her psychosis is likely manufactured. She does meet involuntary criteria at this time as she is denying any suicidal or homicidal ideation, demonstrating no psychotic symptoms, refusing to meet with this provider under the mistaken idea that that will delay a potential discharge. Interesting enough after asking multiple times to leave suddenly when offered discharged she changes her opinion quite quickly stating that "I have no where go." In direct contrast to her previous reportedly psychotic statements that in hindsight now appear to be quite manipulative. Mental Status Examination Patient refuses interview. Follow Up The social work team worked during the predischarge meeting in order to evaluate for further issues of lethality address them fully before discharge. They worked on safety planning with the patient's family members in order to ensure that the patient will have a safe and effective discharge. Time Spent The amount of time spent in the coordination of care for this patient was approximately 15 minutes. Saturday Vital Signs/I&Os Vital Signs Date Time Temp Pulse Resp B/P (MAP) Pulse Ox O2 Delivery O2 Flow Rate FiO2 03/08/20 08:54 Room Air 03/08/20 06:40 98.5 81 14 116/54 (74) 93 Medications Scheduled Duloxetine Hcl (Duloxetine HCl) 60 Mg Capsule.dr, 1 CAP PO DAILY for mood for 7 Days, #7 Gabapentin (Gabapentin) 300 Mg Capsule, 300 MG PO TID, (Reported) Glipizide (Glipizide) 5 Mg Tablet, 5 MG PO DAILY, (Reported) Lamotrigine (Lamotrigine) 100 Mg Tablet, 150 MG PO DAILY, (Reported) Prazosin Hcl (Prazosin HCl) 2 Mg Capsule, 2 MG PO QHS, (Reported) Quetiapine Fumarate (Quetiapine Fumarate) 200 Mg Tablet, 600 MG PO QHS, (Reported) Simvastatin (Simvastatin) 20 Mg Tablet, 20 MG PO QHS, (Reported) Trazodone HCl (Trazodone HCl) 100 Mg Tablet, 100 MG PO QHS, (Reported) Scheduled PRN Meclizine HCl (Meclizine HCl) 25 Mg Tablet, 25 MG PO Q8HP PRN for DIZZINESS, (Reported) Allergies Coded Allergies: NSAIDS (Non-Steroidal Anti-Inflamma (Verified Allergy, Mild, STOMACH UPSET, 04/04/19) ibuprofen (Verified Allergy, Mild, STOMACH UPSET, 04/04/19) naproxen (Verified Allergy, Mild, CAN TAKE ASPIRIN, 04/04/19) shellfish derived (Verified Allergy, Unknown, 04/04/19) haloperidol (Verified Adverse Reaction, Severe, RASH AND INABILITY TO RELAX MUSCLES. EPS., 04/04/19) BERNABE MARSH DO March 08, 2020 09:18
[2020-03-09] MEDS ORDERED: DULO1CAP6 PO ×2 (11:08→11:43)
== END 2020-03-08 15:43 | disposition home or self-care (01) | DRG 861 ==
LOC: M ED 13:58 → M ED INP 02-23 16:11 → EDBEDREQTM 02-23 16:26 → EDBEDREQDT 02-23 16:26 → EDBEDREQSVC 02-23 16:26 → M PSY 02-23 20:05
PROVIDERS: ADMIT Psychiatry & Neurology Addiction Medicine; ATTEND Psychiatry & Neurology Addiction Medicine
DX: Z76.5 Malingerer [conscious simulation] (principal); F43.10 Post-traumatic stress disorder, unspecified; Z79.899 Other long term (current) drug therapy; Z88.6 Allergy status to analgesic agent; Z88.8 Allergy status to other drugs, medicaments and biological substances; Z91.013 Allergy to seafood; E11.9 Type 2 diabetes mellitus without complications; G40.909 Epilepsy, unspecified, not intractable, without status epilepticus; M79.7 Fibromyalgia; M54.5 Low back pain; I50.9 Heart failure, unspecified; I25.2 Old myocardial infarction; F10.10 Alcohol abuse, uncomplicated; E78.5 Hyperlipidemia, unspecified; I11.0 Hypertensive heart disease with heart failure; E66.01 Morbid (severe) obesity due to excess calories

== ENCOUNTER 2020-03-14 01:19 | Emergency (ER) | payer OTHER ==
[~2020-03-14] VITALS: Ht 162.6 cm; Wt 111.4 kg
[~2020-03-14 01:19] MED LIST changes: +DULO1CAP6 PO; +LAMO100T3 PO
[2020-03-14 02:00] LABS: BASO % 0.6 % (0.0-1.0); EOS # 0.2 10^3/uL (0.0-0.5); EOS % 2.8 % (0.0-3.0); HEMOGLOBIN 12.5 g/dl (12.0-15.5); LYMPH # 2.2 10^3/uL (1.5-5.0); LYMPH % 32.5 % (24.0-44.0); MEAN CORPUSCULAR HEMOGLOBIN 27.2 pg (27.0-33.0); MEAN CORPUSCULAR HGB CONC 32.1 g/dl (32.0-36.5); MEAN CORPUSCULAR VOLUME 84.8 fl (80.0-96.0); MONO # 0.4 10^3/uL (0.0-0.8); MONO % 5.2 % (0.0-5.0); NEUTROPHILS % 58.6 % (36.0-66.0); PLATELET COUNT, AUTOMATED 302 10^3/uL (150-450); WHITE BLOOD COUNT 6.8 10^3/uL (4.0-10.0)
[2020-03-14 02:12] LABS: PROTHROMBIN TIME 12.9 SECONDS (11.8-14.0)
[2020-03-14 02:26] LABS: ALBUMIN 3.9 GM/DL (3.2-5.2); ALT/SGPT 27 U/L (12-78); BILIRUBIN,DIRECT 0.1 MG/DL (0.0-0.2); BILIRUBIN,TOTAL 0.3 MG/DL (0.2-1.0); BLOOD UREA NITROGEN 16 MG/DL (7-18); CALCIUM LEVEL 8.9 MG/DL (8.5-10.1); CARBON DIOXIDE LEVEL 30 MEQ/L (21-32); CHLORIDE LEVEL 101 MEQ/L (98-107); CK-MB VALUE MASS < 1.0 NG/ML (<3.6); CPK CREATINE PHOSPHOKINASE 64 U/L (26-192); GLOMERULAR FILTRATION RATE > 60.0 (>51); GLUCOSE, FASTING 129 MG/DL (70-100); LIPASE 73 U/L (73-393); MB/CK RELATIVE INDEX 1.56 (< OR =4); NT-PRO BNP 28 PG/ML (<125); SODIUM LEVEL 137 MEQ/L (136-145); TOTAL PROTEIN 7.8 GM/DL (6.4-8.2); TROPONIN I < 0.02 NG/ML (< 0.10)
[2020-03-14] MEDS ORDERED: ISOVUE-370 76% 100ML VIAL As Ordered ONE (02:36)
--- NOTE | 2020-03-14 03:03 | REPVR ---
PROCEDURE INFORMATION: Exam: CT Angiography Chest With Contrast Exam date and time: 03/14/2020 2:47 AM Age: 54 years old Clinical indication: Chest pain TECHNIQUE: Imaging protocol: Computed tomographic angiography of the chest with intravenous contrast. 3D rendering: MIP and/or 3D reconstructed images were created by the technologist. Radiation optimization: All CT scans at this facility use at least one of these dose optimization techniques: automated exposure control; mA and/or kV adjustment per patient size (includes targeted exams where dose is matched to clinical indication); or iterative reconstruction. Contrast material: ISO 370; Contrast volume: 75 ml; Contrast route: IV; COMPARISON: CR PORTABLE CHEST X-RAY 04/04/2019 11:34 PM FINDINGS: Limitations: Respiratory motion artifact degrades the image quality. Pulmonary arteries: There is no pulmonary embolism in the main, lobar, or segmental pulmonary arteries. The subsegmental pulmonary arteries are degraded by respiratory motion artifact. Aorta: The thoracic aorta is intact and patent. There is no thoracic aortic aneurysm, pseudoaneurysm, penetrating atherosclerotic ulcer, intramural hematoma, or dissection. Tracheobronchial tree: Intact and patent. Lungs: The lungs are clear. There is no lung consolidation, pulmonary infarct, or mass. No emphysematous changes or interstitial lung disease is noted. Pleural space: Normal. No pneumothorax or pleural effusion. Heart: The heart is borderline in size. The ratio of the diameter of the right ventricle to the diameter of the left ventricle measures less than 1, which is within normal limits and there is no evidence for a right ventricular strain. Mediastinum: No mediastinal mass, fluid collection, or pneumomediastinum. Lymph nodes: No enlarged lymph nodes. Diaphragm: Intact. Bones/joints: The imaged bony structures are intact. There is no suspicious osteolytic or osteoblastic lesion. Soft tissues: Unremarkable. No soft tissue fluid collection. IMPRESSION: 1. No pulmonary embolism in the main, lobar, or segmental pulmonary arteries. The subsegmental pulmonary arteries are degraded by respiratory motion artifact. 2. No thoracic aortic aneurysm, pseudoaneurysm, intramural hematoma, penetrating atherosclerotic ulcer, or dissection. 3. Clear lungs. Electronically signed by: Camron Padilla On 03/14/2020 03:02:50 AM
[2020-03-14] MEDS ORDERED: ACETAMINOPHEN TAB 650MG DOSE (2X325MG) PO ONE (05:00)
[2020-03-14 05:04] VITALS: BP 135/73
--- NOTE | 2020-03-14 07:35 | ECGEPIP ---
[facility] - ED Test Date: 2020-03-14 Pat Name: VINNY DUNCAN Department: Room: - Gender: Female Room Worker: Vicki : 1965 Requested By: ALEXANDER Espana Order Number: [id number] Reading MD: Leticia Cardona Measurements Intervals [place] Rate: 74 P: 23 TN: 140 QRS: 3 QRSD: 86 T: 9 QT: 384 QTc: 427 Interpretive Statements SINUS RHYTHM LOW QRS VOLTAGE IN PRECORDIAL LEADS NSTTW abnormalities DECREASED RATE 02/22/20 Electronically Signed on 03-14-2020 7:35:37 EDT by Leticia Cardona
== END 2020-03-14 05:10 | disposition home or self-care (01) ==
LOC: M ED 01:19
DX: R07.89 Other chest pain (principal); I10 Essential (primary) hypertension; E11.9 Type 2 diabetes mellitus without complications; I25.10 Atherosclerotic heart disease of native coronary artery without angina pectoris; Z95.2 Presence of prosthetic heart valve; I25.2 Old myocardial infarction; F43.10 Post-traumatic stress disorder, unspecified; Z91.013 Allergy to seafood; Z88.8 Allergy status to other drugs, medicaments and biological substances; J44.9 Chronic obstructive pulmonary disease, unspecified
CPT/HCPCS: 71275; 80053; 82248; 82550; 82553; 83690; 83880; 85025; 85610; 93005; 93041; 94760; 99285; Q9967

== ENCOUNTER 2020-03-16 22:46 | Inpatient (IN) | payer OTHER ==
[~2020-03-16] VITALS: Ht 162.6 cm; Wt 110.6 kg
[2020-03-16] MEDS ORDERED: CYMB60CA3 PO (22:56)
[2020-03-17] MEDS ORDERED: UNRESOLVED CLARIFICATION ENTRY XX SCH (00:01)
[2020-03-17 00:14] LABS: HEMATOCRIT 37.2 % (36.0-47.0); HEMOGLOBIN 12.3 g/dl (12.0-15.5); MEAN CORPUSCULAR HEMOGLOBIN 27.4 pg (27.0-33.0); MEAN CORPUSCULAR HGB CONC 33.1 g/dl (32.0-36.5); MEAN CORPUSCULAR VOLUME 82.9 fl (80.0-96.0); PLATELET COUNT, AUTOMATED 309 10^3/uL (150-450); RED BLOOD COUNT 4.49 10^6/uL (4.00-5.40); WHITE BLOOD COUNT 7.8 10^3/uL (4.0-10.0)
[2020-03-17 00:35] LABS: ACETAMINOPHEN LEVEL < 2.0 UG/ML (10.0-30.0); ALBUMIN 3.8 GM/DL (3.2-5.2); ALT/SGPT 30 U/L (12-78); BILIRUBIN,DIRECT < 0.1 MG/DL (0.0-0.2); BILIRUBIN,TOTAL 0.2 MG/DL (0.2-1.0); BLOOD UREA NITROGEN 15 MG/DL (7-18); CALCIUM LEVEL 8.9 MG/DL (8.5-10.1); CARBON DIOXIDE LEVEL 29 MEQ/L (21-32); CHLORIDE LEVEL 102 MEQ/L (98-107); CREATININE FOR GFR 0.76 MG/DL (0.55-1.30); ETHYL ALCOHOL (ETHANOL) < 0.003 % (0.000-0.010); GLOMERULAR FILTRATION RATE > 60.0 (>51); GLUCOSE, FASTING 163 MG/DL (70-100); SALICYLATE LEVEL < 1.7 MG/DL (5.0-30.0); SODIUM LEVEL 136 MEQ/L (136-145); TOTAL PROTEIN 7.2 GM/DL (6.4-8.2)
[2020-03-17] MEDS ORDERED: QUET1TAB10 PO (01:10)
[2020-03-17 01:17] LABS: AMPHETAMINES LEVEL URINE NEGATIVE (NEGATIVE); BARBITURATES URINE NEGATIVE (NEGATIVE); BENZODIAZEPINES URINE NEGATIVE (NEGATIVE); CANNABINOIDS URINE NEGATIVE (NEGATIVE); COCAINE METABOLITE URINE NEGATIVE (NEGATIVE); METHADONE URINE NEGATIVE (NEGATIVE); OPIATES URINE NEGATIVE (NEGATIVE); PHENCYCLIDINE URINE NEGATIVE (NEGATIVE)
[2020-03-17] MEDS ORDERED: traZODone 50 MG TAB PO PRN (01:45)
[2020-03-17] MEDS ORDERED: MAALOX 30 ML SUSP *UDC PO PRN (01:45)
[2020-03-17] MEDS ORDERED: MOM 30ML SUSPENSION UDC PO PRN (01:45)
[2020-03-17] MEDS ORDERED: ACETAMINOPHEN TAB 650MG DOSE (2X325MG) PO PRN (01:45)
[2020-03-17 02:53] VITALS: BP 148/90
[2020-03-17] MEDS ORDERED: glipiZIDE (GLUCOTROL) 5 MG TAB PO SCH (07:30)
[2020-03-17] MEDS ORDERED: MECLIZINE 25 MG TABLET PO PRN (07:45)
[2020-03-17] MEDS ORDERED: PILL CUTTER 1 EACH XX PRN (08:00)
[2020-03-17] MEDS ORDERED: PALIPERIDONE 3 MG ER TAB (INVEGA) PO SCH (09:00)
[2020-03-17] MEDS ORDERED: lamoTRIgine 100MG TAB PO SCH (09:00)
[2020-03-17] MEDS ORDERED: GABAPENTIN 300 MG CAP PO SCH (09:00)
[2020-03-17 09:02] LABS: FREE THYROXINE INDEX 1.9 % (1.3-4.8); THYROID STIMULATING HORMONE 6.2 uIU/ML (0.358-3.740); THYROXINE (T4) 5.8 UG/DL (4.5-12.0)
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
--- NOTE | 2020-03-17 10:19 | MHDSPDOC ---
[facility] Discharge Summary Discharge Summary DATE OF ADMISSION: March 17, 2020 at 01:40 DATE OF DISCHARGE: March 17, 2020 at 14:10 please see h/p for same day discharge Vital Signs/I&Os Vital Signs Date Time Temp Pulse Resp B/P (MAP) Pulse Ox O2 Delivery O2 Flow Rate FiO2 03/17/20 02:53 96.1 90 14 148/90 (109) 96 Room Air Laboratory Data Labs 24H Laboratory Tests 2 03/16/20 23:52: Nucleated Red Blood Cells % (auto) 0.0, Anion Gap 5L, Glomerular Filtration Rate > 60.0, Calcium Level 8.9, Total Bilirubin 0.2, Direct Bilirubin < 0.1, Aspartate Amino Transf (AST/SGOT) 14, Alanine Aminotransferase (ALT/SGPT) 30, Alkaline Phosphatase 111, Total Protein 7.2, Albumin 3.8, Albumin/Globulin Ratio 1.1L, Thyroid Stimulating Hormone (TSH) 4.520H, Salicylates Level < 1.7L, Acetaminophen Level < 2.0L, Ethyl Alcohol Level < 0.003 03/17/20 00:47: Urine Opiates Screen NEGATIVE, Urine Methadone Screen NEGATIVE, Urine Barbiturates Screen NEGATIVE, Urine Phencyclidine Screen NEGATIVE, Urine Amphetamines Screen NEGATIVE, Urine Benzodiazepines Screen NEGATIVE, Urine Cocaine Metabolite Screen NEGATIVE, Urine Cannabinoids Screen NEGATIVE 03/17/20 08:13: Thyroid Stimulating Hormone (TSH) 6.200H, Free Thyroxine Index 1.9, Thyroxine (T4) 5.8, Triiodothyronine (T3) Uptake 32 CBC/BMP Laboratory Tests 03/16/20 23:52 Medications Scheduled Duloxetine Hcl (Cymbalta) 60 Mg Capsule.dr, 60 MG PO DAILY, (Reported) Gabapentin (Gabapentin) 300 Mg Capsule, 300 MG PO TID, (Reported) Glipizide (Glipizide) 5 Mg Tablet, 5 MG PO DAILY for dm for 7 Days, #7 Lamotrigine (Lamotrigine) 100 Mg Tablet, 150 MG PO DAILY, (Reported) Prazosin Hcl (Prazosin HCl) 2 Mg Capsule, 2 MG PO QHS, (Reported) Quetiapine Fumarate (Quetiapine Fumarate) 300 Mg Tablet, 600 MG PO QHS, (Reported) Simvastatin (Simvastatin) 20 Mg Tablet, 20 MG PO QHS, (Reported) Trazodone HCl (Trazodone HCl) 100 Mg Tablet, 100 MG PO QHS, (Reported) Scheduled PRN Meclizine HCl (Meclizine HCl) 25 Mg Tablet, 25 MG PO Q8H PRN for DIZZINESS, (Reported) Allergies Coded Allergies: NSAIDS (Non-Steroidal Anti-Inflamma (Verified Allergy, Mild, STOMACH UPSET, 03/14/20) ibuprofen (Verified Allergy, Mild, STOMACH UPSET, 03/14/20) naproxen (Verified Allergy, Mild, CAN TAKE ASPIRIN, 03/14/20) shellfish derived (Verified Allergy, Unknown, 03/14/20) haloperidol (Verified Adverse Reaction, Severe, RASH AND INABILITY TO RELAX MUSCLES. EPS., 03/14/20) BERNABE MARSH DO March 17, 2020 10:19
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
[2020-03-17] MEDS ORDERED: GLIP5TAB8 PO (13:21)
[2020-03-17] MEDS ORDERED: SIMVASTATIN 20 MG TAB PO SCH (21:00)
[2020-03-17] MEDS ORDERED: PRAZOSIN 1 MG CAP PO SCH (21:00)
== END 2020-03-17 14:10 | disposition home or self-care (01) | DRG 861 ==
LOC: M ED 22:46 → M ED INP 03-17 01:40 → M PSY 03-17 02:40
PROVIDERS: ADMIT Psychiatry & Neurology Psychiatry; ATTEND Psychiatry & Neurology Addiction Medicine
DX: Z76.5 Malingerer [conscious simulation] (principal); F43.12 Post-traumatic stress disorder, chronic; Z59.8 Other problems related to housing and economic circumstances; Z79.899 Other long term (current) drug therapy; Z88.6 Allergy status to analgesic agent; Z88.8 Allergy status to other drugs, medicaments and biological substances; Z91.013 Allergy to seafood

== ENCOUNTER 2020-03-19 09:06 | Inpatient (IN) | payer OTHER ==
[~2020-03-19] VITALS: Ht 162.6 cm; Wt 109.3 kg
[~2020-03-19 09:06] MED LIST changes: +QUET1TAB10 PO
[2020-03-19 10:06] LABS: HEMATOCRIT 41.4 % (36.0-47.0); HEMOGLOBIN 13.9 g/dl (12.0-15.5); MEAN CORPUSCULAR HGB CONC 33.6 g/dl (32.0-36.5); MEAN CORPUSCULAR VOLUME 83.3 fl (80.0-96.0); PLATELET COUNT, AUTOMATED 340 10^3/uL (150-450); RED BLOOD COUNT 4.97 10^6/uL (4.00-5.40)
[2020-03-19 11:13] LABS: ACETAMINOPHEN LEVEL < 2.0 UG/ML (10.0-30.0); ALBUMIN 3.9 GM/DL (3.2-5.2); ALT/SGPT 36 U/L (12-78); BILIRUBIN,DIRECT 0.1 MG/DL (0.0-0.2); BILIRUBIN,TOTAL 0.4 MG/DL (0.2-1.0); BLOOD UREA NITROGEN 10 MG/DL (7-18); CALCIUM LEVEL 9.6 MG/DL (8.5-10.1); CARBON DIOXIDE LEVEL 28 MEQ/L (21-32); CHLORIDE LEVEL 103 MEQ/L (98-107); CREATININE FOR GFR 0.76 MG/DL (0.55-1.30); ETHYL ALCOHOL (ETHANOL) < 0.003 % (0.000-0.010); GLOMERULAR FILTRATION RATE > 60.0 (>51); GLUCOSE, FASTING 171 MG/DL (70-100); POTASSIUM SERUM 4.2 MEQ/L (3.5-5.1); SALICYLATE LEVEL < 1.7 MG/DL (5.0-30.0); SODIUM LEVEL 140 MEQ/L (136-145); TOTAL PROTEIN 7.8 GM/DL (6.4-8.2)
[2020-03-19] MEDS ORDERED: ACETAMINOPHEN TAB 650MG DOSE (2X325MG) PO ONE (11:30)
[2020-03-19 14:37] LABS: AMPHETAMINES LEVEL URINE NEGATIVE (NEGATIVE); BARBITURATES URINE NEGATIVE (NEGATIVE); BENZODIAZEPINES URINE NEGATIVE (NEGATIVE); CANNABINOIDS URINE NEGATIVE (NEGATIVE); COCAINE METABOLITE URINE NEGATIVE (NEGATIVE); METHADONE URINE NEGATIVE (NEGATIVE); OPIATES URINE NEGATIVE (NEGATIVE); PHENCYCLIDINE URINE NEGATIVE (NEGATIVE)
[2020-03-19] MEDS ORDERED: GLIP5TAB8 PO (15:54)
[2020-03-19] MEDS ORDERED: MOM 30ML SUSPENSION UDC PO PRN (16:15)
[2020-03-19] MEDS ORDERED: MAALOX 30 ML SUSP *UDC PO PRN (16:15)
[2020-03-19] MEDS ORDERED: traZODone 50 MG TAB PO PRN (16:15)
[2020-03-19 17:45] VITALS: BP 144/78
[2020-03-19] MEDS ORDERED: MECLIZINE 25 MG TABLET PO PRN (18:15)
[2020-03-19] MEDS: QUEtiapine FUMARATE 200 MG TAB PO SCH (20:46)
[2020-03-19] MEDS: SIMVASTATIN 20 MG TAB PO SCH (20:46)
[2020-03-19] MEDS: GABAPENTIN 300 MG CAP PO SCH (20:46)
[2020-03-19] MEDS: PRAZOSIN 1 MG CAP PO SCH (20:46)
[2020-03-19] MEDS: traZODone 100 MG TAB PO SCH (20:46)
[2020-03-20 06:26] VITALS: BP 114/62
[2020-03-20] MEDS: lamoTRIgine 100MG TAB PO SCH (10:17)
[2020-03-20] MEDS: DULoxetine 30 MG CAP (CYMBALTA) PO SCH (10:17)
[2020-03-20] MEDS: GABAPENTIN 300 MG CAP PO SCH ×3 (10:17→20:21)
[2020-03-20] MEDS: glipiZIDE (GLUCOTROL) 5 MG TAB PO SCH (10:17)
[2020-03-20] MEDS: ACETAMINOPHEN TAB 650MG DOSE (2X325MG) PO PRN (10:17)
[2020-03-20 16:54] VITALS: BP 117/61
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
[2020-03-20] MEDS: QUEtiapine FUMARATE 200 MG TAB PO SCH (20:21)
[2020-03-20] MEDS: SIMVASTATIN 20 MG TAB PO SCH (20:21)
[2020-03-20] MEDS: traZODone 100 MG TAB PO SCH (20:21)
[2020-03-20] MEDS: PRAZOSIN 1 MG CAP PO SCH (20:21)
[2020-03-21 06:13] VITALS: BP 132/68
[2020-03-21] MEDS: glipiZIDE (GLUCOTROL) 5 MG TAB PO SCH (08:37)
[2020-03-21] MEDS: GABAPENTIN 300 MG CAP PO SCH ×3 (08:37→20:28)
[2020-03-21] MEDS: lamoTRIgine 100MG TAB PO SCH (08:37)
[2020-03-21] MEDS: DULoxetine 30 MG CAP (CYMBALTA) PO SCH (08:39)
[2020-03-21 15:17] VITALS: BP 151/64
[2020-03-21 20:28] VITALS: BP 151/64
[2020-03-21] MEDS: PRAZOSIN 1 MG CAP PO SCH (20:28)
[2020-03-21] MEDS: SIMVASTATIN 20 MG TAB PO SCH (20:28)
[2020-03-21] MEDS: QUEtiapine FUMARATE 200 MG TAB PO SCH (20:28)
[2020-03-21] MEDS: traZODone 100 MG TAB PO SCH (20:28)
[2020-03-22] MEDS: GABAPENTIN 300 MG CAP PO SCH ×3 (08:34→20:28)
[2020-03-22] MEDS: glipiZIDE (GLUCOTROL) 5 MG TAB PO SCH (08:34)
[2020-03-22] MEDS: lamoTRIgine 100MG TAB PO SCH (08:34)
[2020-03-22] MEDS: DULoxetine 30 MG CAP (CYMBALTA) PO SCH (08:34)
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
--- NOTE | 2020-03-22 10:23 | MHIPNPDOC ---
[facility] Progress Note Progress Note The patient was seen on 03/22/20. 54-year-old woman with a history of reported PTSD is seen in follow-up, she still reports some unusual ideation, although nursing staff report that she is reported a talking to herself, but is easily redirected. It's unclear whether she suffering from psychosis at this time, patient reports that she wants discharge at this time but is unable to participate in a discharge plan. Vital Signs Vital Signs Date Time Temp Pulse Resp B/P (MAP) Pulse Ox O2 Delivery O2 Flow Rate FiO2 03/21/20 20:28 151/64 03/21/20 15:17 97.4 101 18 03/20/20 16:54 93 Room Air Current Medications Current Medications Medications (Trade) Dose Ordered Sig/Wagner Route PRN Reason Start Time Stop Time Status Last Admin Dose Admin Acetaminophen (Tylenol Tab) 650 mg Q6HP PRN PO HEADACHE or DISCOMFORT 03/19/20 16:15 03/20/20 10:17 Al Hydrox/Mg Hydrox/Simethicone (Mylanta) 30 ml Q4HP PRN PO HEARTBURN/INDIGESTION 03/19/20 16:15 Clozapine (Clozaril) 12.5 mg QHS PO 03/22/20 21:00 Docusate Sodium (Colace) 100 mg DAILY PO 03/22/20 09:00 Duloxetine HCl (Cymbalta) 60 mg DAILY PO 03/20/20 09:00 03/22/20 09:48 DC 03/22/20 08:34 Gabapentin (Neurontin) 300 mg TID PO 03/19/20 21:00 03/22/20 08:34 Glipizide (Glucotrol) 5 mg DAILY@0800 PO 03/20/20 08:00 03/22/20 08:34 Home Med (Med Rec Complete!) ASDIRECTED XX 03/19/20 16:00 03/19/20 15:58 DC Lamotrigine (LaMICtal) 150 mg DAILY PO 03/20/20 09:00 03/22/20 08:34 Magnesium Hydroxide (Milk Of Magnesia) 30 ml DAILYPRN PRN PO CONSTIPATION 03/19/20 16:15 Meclizine HCl (Antivert) 25 mg Q8H PRN PO DIZZINESS 03/19/20 18:15 Olanzapine (ZyPREXA ZYDIS) 5 mg Q4HP PRN PO ANXIETY/AGITATION 03/19/20 16:15 Prazosin HCl (Minipress) 2 mg QHS PO 03/19/20 21:00 03/22/20 09:48 DC 03/21/20 20:28 Quetiapine Fumarate (SEROquel) 300 mg QHS PO 03/22/20 21:00 Quetiapine Fumarate (SEROquel) 600 mg QHS PO 03/19/20 21:00 03/22/20 09:48 DC 03/21/20 20:28 Simvastatin (Zocor) 20 mg QHS PO 03/19/20 21:00 03/21/20 20:28 Trazodone HCl (Desyrel) 50 mg QHSP PRN PO INSOMNIA 03/19/20 16:15 03/19/20 18:09 DC Trazodone HCl (Desyrel) 100 mg QHS PO 03/19/20 21:00 03/22/20 10:13 DC 03/21/20 20:28 Trazodone HCl (Desyrel) 100 mg QHSP PRN PO sleep 03/22/20 10:15 Allergies Coded Allergies: NSAIDS (Non-Steroidal Anti-Inflamma (Verified Allergy, Mild, STOMACH UPSET, 03/14/20) ibuprofen (Verified Allergy, Mild, STOMACH UPSET, 03/14/20) naproxen (Verified Allergy, Mild, CAN TAKE ASPIRIN, 03/14/20) shellfish derived (Verified Allergy, Unknown, 03/14/20) haloperidol (Verified Adverse Reaction, Severe, RASH AND INABILITY TO RE LAX MUSCLES. EPS., 03/14/20) Review of Systems Review of Systems General: Denies: Fatigue Skin: Denies: Rash Pulmonary: Denies: Dyspnea, Cough Cardiovascular: Denies: Chest Pain, Palpitations Gastrointestinal: Denies: Nausea, Vomiting, Diarrhea, Constipation Neurological: Denies: Weakness, Numbness Mental Status Examination General Appearance: well groomed Build: overweight Demeanor: average Eye Contact: average Activity: average Behavior: cooperative Speech: clear Mood: euthymic Affect: full Thought Process: logical/linear Thought Content (Delusions): none reported Thought Content (Other): none reported Thought Content (Aggressive): none reported Perception (Hallucinations): none reported Perception (Other): none reported Cognition (Impairment of): none reported Cognition(Intelligence Est.): borderline Oriented: Awake, Alert Insight: poor Judgment: Poor Psychosis: Psychotic Perceptions (?) Problem List Problems: (1) Unspecified psychosis Status: Acute Response to Treatment: Uncontrolled Problem Specific Plan: Monitor Clinically Problem Text: Unclear at this time as to cause, will change patient's medications by discontinuing Cymbalta, having her Seroquel dose and is continuing many press, will start clozapine 12.5 mg nightly discuss risk, benefits and potential side effects of patient (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 (3) PTSD (post-traumatic stress disorder) Status: Chronic Response to Treatment: Stable Problem Specific Plan: Monitor Clinically (4) Discharge planning issues Problem Text: Will need to ascertain where patient will return to, it appears that she is unhappy being at [facility] Medications Scheduled Duloxetine Hcl (Cymbalta) 60 Mg Capsule.dr, 60 MG PO DAILY, (Reported) Gabapentin (Gabapentin) 300 Mg Capsule, 300 MG PO TID, (Reported) Glipizide (Glipizide) 5 Mg Tablet, 5 MG PO DAILY, (Reported) Lamotrigine (Lamotrigine) 100 Mg Tablet, 150 MG PO DAILY, (Reported) Prazosin Hcl (Prazosin HCl) 2 Mg Capsule, 2 MG PO QHS, (Reported) Quetiapine Fumarate (Quetiapine Fumarate) 300 Mg Tablet, 600 MG PO QHS, (Reported) Simvastatin (Simvastatin) 20 Mg Tablet, 20 MG PO QHS, (Reported) Trazodone HCl (Trazodone HCl) 100 Mg Tablet, 100 MG PO QHS, (Reported) Scheduled PRN Meclizine HCl (Meclizine HCl) 25 Mg Tablet, 25 MG PO Q8H PRN for DIZZINESS, (Reported) BERNABE MARSH DO Mar 22, 2020 10:23
[2020-03-22] MEDS: DOCUSATE SODIUM 100 MG CAP PO SCH (10:53)
[2020-03-22 17:12] VITALS: BP 159/70
[2020-03-22] MEDS: PILL CUTTER 1 EACH XX PRN (20:27)
[2020-03-22] MEDS: cloZAPine 25 MG TAB (S0136) PO SCH (20:27)
[2020-03-22] MEDS: SIMVASTATIN 20 MG TAB PO SCH (20:28)
[2020-03-22] MEDS: traZODone 100 MG TAB PO PRN (20:57)
[2020-03-22] MEDS ORDERED: QUEtiapine FUMARATE 100 MG TAB PO SCH (21:00)
[2020-03-23 06:18] VITALS: BP 137/76
[2020-03-23] MEDS: DOCUSATE SODIUM 100 MG CAP PO SCH (07:58)
[2020-03-23] MEDS: GABAPENTIN 300 MG CAP PO SCH ×3 (07:59→20:18)
[2020-03-23] MEDS: lamoTRIgine 100MG TAB PO SCH (07:59)
[2020-03-23] MEDS: glipiZIDE (GLUCOTROL) 5 MG TAB PO SCH (08:00)
[2020-03-23] MEDS ORDERED: PRAZOSIN 1 MG CAP PO PRN (16:15)
[2020-03-23 17:30] VITALS: BP 128/82
[2020-03-23] MEDS: PILL CUTTER 1 EACH XX PRN (20:18)
[2020-03-23] MEDS: QUEtiapine FUMARATE 200 MG TAB PO SCH (20:18)
[2020-03-23] MEDS: traZODone 100 MG TAB PO PRN (20:18)
[2020-03-23] MEDS: cloZAPine 25 MG TAB (S0136) PO SCH (20:18)
[2020-03-23] MEDS: SIMVASTATIN 20 MG TAB PO SCH (20:18)
[2020-03-24 06:17] VITALS: BP 140/70
[2020-03-24] MEDS: GABAPENTIN 300 MG CAP PO SCH ×3 (09:23→20:30)
[2020-03-24] MEDS: glipiZIDE (GLUCOTROL) 5 MG TAB PO SCH (09:23)
[2020-03-24] MEDS: DOCUSATE SODIUM 100 MG CAP PO SCH (09:23)
[2020-03-24] MEDS: lamoTRIgine 100MG TAB PO SCH (09:24)
--- NOTE | 2020-03-24 09:43 | MHIPNPDOC ---
[facility] Progress Note Progress Note DOS 03/24/2020 Events Overnight: none Group Attendance:: very little Symptom changes (psych ROS): denies any symptoms at this time, but generally reports that she still is want to return to [facility], some paranoid thoughts Staff Report: staff report the patient's was times are she argues with herself, she said multiple admissions and continues to be off baseline per [facility] staff Medical ROS: [Gen: -fevers, chills] [Cardio: -chest pain, palpations] [[place]: -SOB, cough] [GI: -N,V,D,C] [Neuro: -tremors, msk stiffness] [Derm: -rash] MSE: Vitals: Below [General: Well dressed with good hygiene Speech: Spontaneous and fluid Thought processes: Linear and logical Thought content: Future orientated Abstract reasoning, and computation: Intact Description of associations: mildly loosened Description of abnormal or psychotic thoughts:Denies any suicidal or homicidal ideation. Denies any auditory or visual hallucinations. Judgment: poor Insight: poor Orientation: Alert and orientated 3 Recent and remote memory: Intact Attention span and concentration: Intact Fund of knowledge: Adequate Mood: "okay" Affect: flat with little reactivity Vital Signs Vital Signs Date Time Temp Pulse Resp B/P (MAP) Pulse Ox O2 Delivery O2 Flow Rate FiO2 03/24/20 06:17 98.6 83 12 140/70 (93) 03/23/20 06:18 96 Room Air Current Medications Current Medications Medications (Trade) Dose Ordered Sig/Wagner Route PRN Reason Start Time Stop Time Status Last Admin Dose Admin Acetaminophen (Tylenol Tab) 650 mg Q6HP PRN PO HEADACHE or DISCOMFORT 03/19/20 16:15 03/20/20 10:17 Al Hydrox/Mg Hydrox/Simethicone (Mylanta) 30 ml Q4HP PRN PO HEARTBURN/INDIGESTION 03/19/20 16:15 Clozapine (Clozaril) 12.5 mg QHS PO 03/22/20 21:00 03/23/20 20:18 Docusate Sodium (Colace) 100 mg DAILY PO 03/22/20 09:00 03/24/20 09:23 Duloxetine HCl (Cymbalta) 60 mg DAILY PO 03/20/20 09:00 03/22/20 09:48 DC 03/22/20 08:34 Gabapentin (Neurontin) 300 mg TID PO 03/19/20 21:00 03/24/20 09:23 Glipizide (Glucotrol) 5 mg DAILY@0800 PO 03/20/20 08:00 03/24/20 09:23 Home Med (Med Rec Complete!) ASDIRECTED XX 03/19/20 16:00 03/19/20 15:58 DC Lamotrigine (LaMICtal) 150 mg DAILY PO 03/20/20 09:00 03/24/20 09:24 Magnesium Hydroxide (Milk Of Magnesia) 30 ml DAILYPRN PRN PO CONSTIPATION 03/19/20 16:15 Meclizine HCl (Antivert) 25 mg Q8H PRN PO DIZZINESS 03/19/20 18:15 Olanzapine (ZyPREXA ZYDIS) 5 mg Q4HP PRN PO ANXIETY/AGITATION 03/19/20 16:15 Prazosin HCl (Minipress) 2 mg QHS PO 03/19/20 21:00 03/22/20 09:48 DC 03/21/20 20:28 Prazosin HCl (Minipress) 2 mg QHSP PRN PO insomnia 03/23/20 16:15 Quetiapine Fumarate (SEROquel) 300 mg QHS PO 03/22/20 21:00 03/23/20 16:13 DC 03/22/20 20:28 Quetiapine Fumarate (SEROquel) 400 mg QHS PO 03/23/20 21:00 03/23/20 20:18 Quetiapine Fumarate (SEROquel) 600 mg QHS PO 03/19/20 21:00 03/22/20 09:48 DC 03/21/20 20:28 Simvastatin (Zocor) 20 mg QHS PO 03/19/20 21:00 03/23/20 20:18 Trazodone HCl (Desyrel) 50 mg QHSP PRN PO INSOMNIA 03/19/20 16:15 03/19/20 18:09 DC Trazodone HCl (Desyrel) 100 mg QHS PO 03/19/20 21:00 03/22/20 10:13 DC 03/21/20 20:28 Trazodone HCl (Desyrel) 100 mg QHSP PRN PO sleep 03/22/20 10:15 03/23/20 20:18 Allergies Coded Allergies: NSAIDS (Non-Steroidal Anti-Inflamma (Verified Allergy, Mild, STOMACH UPSET, 03/14/20) ibuprofen (Verified Allergy, Mild, STOMACH UPSET, 03/14/20) naproxen (Verified Allergy, Mild, CAN TAKE ASPIRIN, 03/14/20) shellfish derived (Verified Allergy, Unknown, 03/14/20) haloperidol (Verified Adverse Reaction, Severe, RASH AND INABILITY TO RELAX MUSCLES. 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 Problem Text: unclear if clinically relevant at this time, patient presentation is highly inconsistent (3) PTSD (post-traumatic stress disorder) Status: Chronic Response to Treatment: Stable Problem Specific Plan: Monitor Clinically Problem Text: will continue to monitor, possibly related to long-term trauma (4) Discharge planning issues Problem Text: unclear were patient will stay with after she leaves, brother reports she can stay for a few days, rationale for changes unclear psychotic or secondary gain Plan / VTE VTE Prophylaxis Ordered?: No Plan Diet: Continue Current Activity: Continue Current Anticipated Discharge: Other Anticipated D/C (unclear at this time no discharge date) BERNABE MARSH DO Mar 24, 2020 09:43
[2020-03-24 17:25] VITALS: BP 152/86
[2020-03-24] MEDS: ACETAMINOPHEN TAB 650MG DOSE (2X325MG) PO PRN (17:51)
[2020-03-24] MEDS: QUEtiapine FUMARATE 200 MG TAB PO SCH (20:30)
[2020-03-24] MEDS: traZODone 100 MG TAB PO PRN (20:30)
[2020-03-24] MEDS: SIMVASTATIN 20 MG TAB PO SCH (20:30)
[2020-03-24] MEDS ORDERED: cloZAPine 25 MG TAB (S0136) PO SCH (21:00)
[2020-03-25 06:14] VITALS: BP 140/72
[2020-03-25] MEDS: GABAPENTIN 300 MG CAP PO SCH ×3 (08:54→21:25)
[2020-03-25] MEDS: DOCUSATE SODIUM 100 MG CAP PO SCH (08:54)
[2020-03-25] MEDS: lamoTRIgine 100MG TAB PO SCH (08:54)
[2020-03-25] MEDS: glipiZIDE (GLUCOTROL) 5 MG TAB PO SCH ×2 (08:59→17:53)
--- NOTE | 2020-03-25 10:00 | MHIPNPDOC ---
[facility] Progress Note Progress Note DOS 03/25/2020 Patient met with today with nurse present for telehealth evaluation due to COVID Crisis Events Overnight: has had episodes of speaking to herself and being intrusive Group Attendance:: none Symptom changes (psych ROS): Affective: denies Psychotic:, appears to still be paranoid Anxiety:. Denies Staff Report: still quite paranoid and distorted, argues with herself frequently Medical ROS: [Gen: -fevers, chills] [Cardio: -chest pain, palpations] [[place]: -SOB, cough] [GI: -N,V,D,C] [Neuro: -tremors, msk stiffness] [Derm: -rash] MSE: Vitals: Below [General: Well dressed with good hygiene Speech: Spontaneous and fluid Thought processes: Linear and logical Thought content: Future orientated Abstract reasoning, and computation: Intact Description of associations: loosened Description of abnormal or psychotic thoughts:Denies any suicidal or homicidal ideation. Denies any auditory or visual hallucinations. Judgment: poor Insight: poor Orientation: Alert and orientated 3 Recent and remote memory: Intact Attention span and concentration: Intact Fund of knowledge: Adequate Mood: "okay" Affect: flat] Vital Signs Vital Signs Date Time Temp Pulse Resp B/P (MAP) Pulse Ox O2 Delivery O2 Flow Rate FiO2 03/25/20 06:14 97.2 75 18 140/72 (94) 03/24/20 17:25 97 Room Air Laboratory Data 24H Labs Laboratory Tests 2 03/25/20 08:58: Bedside Glucose (Misc Panel) 247H Current Medications Current Medications Medications (Trade) Dose Ordered Sig/Wagner Route PRN Reason Start Time Stop Time Status Last Admin Dose Admin Acetaminophen (Tylenol Tab) 650 mg Q6HP PRN PO HEADACHE or DISCOMFORT 03/19/20 16:15 03/24/20 17:51 Al Hydrox/Mg Hydrox/Simethicone (Mylanta) 30 ml Q4HP PRN PO HEARTBURN/INDIGESTION 03/19/20 16:15 Clozapine (Clozaril) 12.5 mg QHS PO 03/22/20 21:00 03/24/20 10:05 DC 03/23/20 20:18 Clozapine (Clozaril) 25 mg QHS PO 03/24/20 21:00 03/24/20 20:29 Docusate Sodium (Colace) 100 mg DAILY PO 03/22/20 09:00 03/25/20 08:54 Duloxetine HCl (Cymbalta) 60 mg DAILY PO 03/20/20 09:00 03/22/20 09:48 DC 03/22/20 08:34 Gabapentin (Neurontin) 300 mg TID PO 03/19/20 21:00 03/25/20 08:54 Glipizide (Glucotrol) 5 mg DAILY@0800 PO 03/20/20 08:00 03/25/20 08:59 Home Med (Med Rec Complete!) ASDIRECTED XX 03/19/20 16:00 03/19/20 15:58 DC Lamotrigine (LaMICtal) 150 mg DAILY PO 03/20/20 09:00 03/25/20 08:54 Magnesium Hydroxide (Milk Of Magnesia) 30 ml DAILYPRN PRN PO CONSTIPATION 03/19/20 16:15 Meclizine HCl (Antivert) 25 mg Q8H PRN PO DIZZINESS 03/19/20 18:15 Olanzapine (ZyPREXA ZYDIS) 5 mg Q4HP PRN PO ANXIETY/AGITATION 03/19/20 16:15 Prazosin HCl (Minipress) 2 mg QHS PO 03/19/20 21:00 03/22/20 09:48 DC 03/21/20 20:28 Prazosin HCl (Minipress) 2 mg QHSP PRN PO insomnia 03/23/20 16:15 Quetiapine Fumarate (SEROquel) 300 mg QHS PO 03/22/20 21:00 03/23/20 16:13 DC 03/22/20 20:28 Quetiapine Fumarate (SEROquel) 400 mg QHS PO 03/23/20 21:00 03/24/20 20:30 Quetiapine Fumarate (SEROquel) 600 mg QHS PO 03/19/20 21:00 03/22/20 09:48 DC 03/21/20 20:28 Simvastatin (Zocor) 20 mg QHS PO 03/19/20 21:00 03/24/20 20:30 Trazodone HCl (Desyrel) 50 mg QHSP PRN PO INSOMNIA 03/19/20 16:15 03/19/20 18:09 DC Trazodone HCl (Desyrel) 100 mg QHS PO 03/19/20 21:00 03/22/20 10:13 DC 03/21/20 20:28 Trazodone HCl (Desyrel) 100 mg QHSP PRN PO sleep 03/22/20 10:15 03/24/20 20:30 Allergies Coded Allergies: NSAIDS (Non-Steroidal Anti-Inflamma (Verified Allergy, Mild, STOMACH UPSET, 03/14/20) ibuprofen (Verified Allergy, Mild, STOMACH UPSET, 03/14/20) naproxen (Verified Allergy, Mild, CAN TAKE ASPIRIN, 03/14/20) shellfish derived (Verified Allergy, Unknown, 03/14/20) haloperidol (Verified Adverse Reaction, Severe, RASH AND INABILITY TO RELAX MUSCLES. 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 Problem Text: unclear if clinically relevant at this time, patient presentation is highly inconsistent (3) PTSD (post-traumatic stress disorder) Status: Chronic Response to Treatment: Stable Problem Specific Plan: Monitor Clinically Problem Text: will continue to monitor, possibly related to long-term trauma (4) Discharge planning issues Problem Text: unclear were patient will stay with after she leaves, brother reports she can stay for a few days, rationale for changes unclear psychotic or secondary gain Plan / VTE VTE Prophylaxis Ordered?: No Plan Diet: Continue Current Activity: Continue Current Anticipated Discharge: Other Anticipated D/C (unclear at this time no discharge date) BERNABE MARSH DO Mar 25, 2020 10:00
[2020-03-25] MEDS: cloZAPine 25 MG TAB (S0136) PO SCH ×2 (11:17→21:25)
[2020-03-25] MEDS: OLANZapine ORAL DISINTEGRATING TAB 5MG PO PRN ×2 (13:59→18:34)
[2020-03-25] MEDS: ACETAMINOPHEN TAB 650MG DOSE (2X325MG) PO PRN (14:00)
[2020-03-25 17:56] VITALS: BP 136/92
[2020-03-25] MEDS: QUEtiapine FUMARATE 200 MG TAB PO SCH (21:25)
[2020-03-25] MEDS: SIMVASTATIN 20 MG TAB PO SCH (21:25)
[2020-03-25] MEDS: traZODone 100 MG TAB PO PRN (21:28)
[2020-03-26 06:18] VITALS: BP 135/88
[2020-03-26] MEDS: glipiZIDE (GLUCOTROL) 5 MG TAB PO SCH ×2 (06:54→17:03)
[2020-03-26] MEDS: GABAPENTIN 300 MG CAP PO SCH ×3 (08:36→21:31)
[2020-03-26] MEDS: DOCUSATE SODIUM 100 MG CAP PO SCH (08:36)
[2020-03-26] MEDS: lamoTRIgine 100MG TAB PO SCH (08:36)
[2020-03-26] MEDS: cloZAPine 25 MG TAB (S0136) PO SCH ×2 (08:37→21:31)
[2020-03-26 15:59] VITALS: BP 140/85
[2020-03-26] MEDS: OLANZapine ORAL DISINTEGRATING TAB 5MG PO PRN (18:55)
[2020-03-26] MEDS ORDERED: OLANZapine ORAL DISINTEGRATING TAB 5MG PO ONE (21:00)
[2020-03-26] MEDS ORDERED: risperiDONE 1 MG TAB PO ONE (21:00)
[2020-03-26] MEDS: QUEtiapine FUMARATE 200 MG TAB PO SCH (21:31)
[2020-03-26] MEDS: SIMVASTATIN 20 MG TAB PO SCH (21:31)
[2020-03-26] MEDS: traZODone 100 MG TAB PO PRN (21:31)
[2020-03-26] MEDS: ACETAMINOPHEN TAB 650MG DOSE (2X325MG) PO PRN (22:57)
[2020-03-27 06:10] VITALS: BP 106/55
[2020-03-27] MEDS: glipiZIDE (GLUCOTROL) 5 MG TAB PO SCH ×2 (08:19→17:06)
[2020-03-27] MEDS: GABAPENTIN 300 MG CAP PO SCH ×3 (08:19→20:49)
[2020-03-27] MEDS: cloZAPine 25 MG TAB (S0136) PO SCH ×2 (08:20→20:48)
[2020-03-27] MEDS: DOCUSATE SODIUM 100 MG CAP PO SCH (08:20)
[2020-03-27] MEDS: lamoTRIgine 100MG TAB PO SCH (08:20)
[2020-03-27] MEDS: OLANZapine ORAL DISINTEGRATING TAB 5MG PO PRN (09:00)
[2020-03-27] MEDS: ACETAMINOPHEN TAB 650MG DOSE (2X325MG) PO PRN (12:32)
[2020-03-27 15:50] VITALS: BP 113/71
[2020-03-27] MEDS: SIMVASTATIN 20 MG TAB PO SCH (20:49)
[2020-03-27] MEDS: QUEtiapine FUMARATE 200 MG TAB PO SCH (20:50)
[2020-03-27] MEDS: traZODone 100 MG TAB PO PRN (20:50)
[2020-03-28 06:15] VITALS: BP 121/82
[2020-03-28] MEDS: glipiZIDE (GLUCOTROL) 5 MG TAB PO SCH ×2 (06:31→16:58)
[2020-03-28] MEDS: cloZAPine 25 MG TAB (S0136) PO SCH ×2 (09:03→20:10)
[2020-03-28] MEDS: PILL CUTTER 1 EACH XX PRN (09:03)
[2020-03-28] MEDS: lamoTRIgine 100MG TAB PO SCH (09:03)
[2020-03-28] MEDS: GABAPENTIN 300 MG CAP PO SCH ×3 (09:03→20:10)
[2020-03-28] MEDS: DOCUSATE SODIUM 100 MG CAP PO SCH (09:03)
[2020-03-28 11:59] LABS: BASO # 0.1 10^3/uL (0.0-0.2); BASO % 0.9 % (0.0-1.0); EOS # 0.2 10^3/uL (0.0-0.5); HEMATOCRIT 40.3 % (36.0-47.0); HEMOGLOBIN 13.1 g/dl (12.0-15.5); LYMPH % 28.5 % (24.0-44.0); MEAN CORPUSCULAR HEMOGLOBIN 27.2 pg (27.0-33.0); MEAN CORPUSCULAR HGB CONC 32.5 g/dl (32.0-36.5); MEAN CORPUSCULAR VOLUME 83.8 fl (80.0-96.0); MONO # 0.5 10^3/uL (0.0-0.8); MONO % 6.4 % (0.0-5.0); NEUTROPHILS # 4.3 10^3/uL (1.5-8.5); NEUTROPHILS % 60.8 % (36.0-66.0); PLATELET COUNT, AUTOMATED 320 10^3/uL (150-450); RED BLOOD COUNT 4.81 10^6/uL (4.00-5.40); WHITE BLOOD COUNT 7.1 10^3/uL (4.0-10.0)
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
[2020-03-28 16:49] VITALS: BP 137/90
[2020-03-28] MEDS: OLANZapine ORAL DISINTEGRATING TAB 5MG PO PRN ×2 (16:55→21:10)
[2020-03-28] MEDS ORDERED: chlorproMAZINE 25 MG TAB (Q0161) PO PRN (18:45)
--- NOTE | 2020-03-28 19:29 | ECGEPIP ---
[facility] Test Date: 2020-03-28 Pat Name: VINNY DUNCAN Department: Room: [place] [address] Gender: Female Binding Dyer: RYANN : 1965 Requested By: VALENTIN Mejía Order Number: [id number] Reading MD: Matthew Monteiro Measurements Intervals [place] Rate: 107 P: 48 DE: 131 QRS: 24 QRSD: 90 T: 28 QT: 346 QTc: 462 Interpretive Statements SINUS TACHYCARDIA LOW QRS VOLTAGE IN PRECORDIAL LEADS Nonspecific ST-T wave abnormalities Rate increased from tracing done 03-14-20 Electronically Signed on 03-28-2020 19:29:04 EDT by Matthew Monteiro
[2020-03-28] MEDS: traZODone 100 MG TAB PO PRN (20:10)
[2020-03-28] MEDS: QUEtiapine FUMARATE 200 MG TAB PO SCH (20:10)
[2020-03-28] MEDS: SIMVASTATIN 20 MG TAB PO SCH (20:11)
[2020-03-28] MEDS: ACETAMINOPHEN TAB 650MG DOSE (2X325MG) PO PRN (21:12)
[2020-03-28] MEDS ORDERED: LORazepam 2 MG TAB PO ONE (21:45)
--- NOTE | 2020-03-29 09:28 | MHIPNPDOC ---
[facility] Progress Note Progress Note DOS: 03/29/2020 Patient met with today with nurse present for telehealth evaluation due to COVID Crisis Events Overnight: bizarre statements, yelling at no one in the lounge, respond to internal stimuli Group Attendance::. None Symptom changes (psych ROS): Affective: denies Psychotic: denies, but is paranoid Anxiety: denies Staff Report: patient is still acting bizarre, paranoid and unable to rectify any of her response internal stimuli Medical ROS: Denies any physical symptoms MSE: Vitals: Below General: disheveled Speech: fluid Thought processes: circumstantial Thought content: psychotic delusions Abstract reasoning, and computation: impaired Description of associations: imparied Description of abnormal or psychotic thoughts: denies SI HI, however, appears to be distorted Insight: poor Orientation: Alert and orientated 3 Recent and remote memory: Intact Attention span and concentration: impaired secondary to thought process Fund of knowledge: unable to determine Mood: "fine" Affect: flat, little reactivity Vital Signs Vital Signs Date Time Temp Pulse Resp B/P (MAP) Pulse Ox O2 Delivery O2 Flow Rate FiO2 03/28/20 16:49 97.5 98 18 137/90 (106) 03/28/20 06:15 Room Air 03/27/20 06:10 97 Laboratory Data 24H Labs Laboratory Tests 2 03/28/20 11:21: Immature Granulocyte % (Auto) 0.4, Neutrophils (%) (Auto) 60.8, Lymphocytes (%) (Auto) 28.5, Monocytes (%) (Auto) 6.4H, Eosinophils (%) (Auto) 3.0, Basophils (%) (Auto) 0.9, Neutrophils # (Auto) 4.3, Lymphocytes # (Auto) 2.0, Monocytes # (Auto) 0.5, Eosinophils # (Auto) 0.2, Basophils # (Auto) 0.1, Nucleated Red Blood Cells % (auto) 0.0 03/28/20 16:57: Bedside Glucose (Misc Panel) 175H CBC/BMP Laboratory Tests 03/28/20 11:21 Current Medications Current Medications Medications (Trade) Dose Ordered Sig/Wagner Route PRN Reason Start Time Stop Time Status Last Admin Dose Admin Acetaminophen (Tylenol Tab) 650 mg Q6HP PRN PO HEADACHE or DISCOMFORT 03/19/20 16:15 03/28/20 21:12 Al Hydrox/Mg Hydrox/Simethicone (Mylanta) 30 ml Q4HP PRN PO HEARTBURN/INDIGESTION 03/19/20 16:15 Chlorpromazine HCl (Thorazine) 50 mg BIDP PRN PO AGITATION 03/28/20 18:45 03/28/20 20:11 Clozapine (Clozaril) 12.5 mg QHS PO 03/22/20 21:00 03/24/20 10:05 DC 03/23/20 20:18 Clozapine (Clozaril) 25 mg BID PO 03/25/20 11:00 03/28/20 20:10 Clozapine (Clozaril) 25 mg QHS PO 03/24/20 21:00 03/25/20 10:53 DC 03/24/20 20:29 Docusate Sodium (Colace) 100 mg DAILY PO 03/22/20 09:00 03/28/20 09:03 Duloxetine HCl (Cymbalta) 60 mg DAILY PO 03/20/20 09:00 03/22/20 09:48 DC 03/22/20 08:34 Gabapentin (Neurontin) 300 mg TID PO 03/19/20 21:00 03/28/20 20:10 Glipizide (Glucotrol) 5 mg BID@0730,1730 PO 03/25/20 17:30 03/28/20 16:58 Glipizide (Glucotrol) 5 mg DAILY@0800 PO 03/20/20 08:00 03/25/20 17:36 DC 03/25/20 08:59 Home Med (Med Rec Complete!) ASDIRECTED XX 03/19/20 16:00 03/19/20 15:58 DC Lamotrigine (LaMICtal) 150 mg DAILY PO 03/20/20 09:00 03/28/20 09:03 Magnesium Hydroxide (Milk Of Magnesia) 30 ml DAILYPRN PRN PO CONSTIPATION 03/19/20 16:15 Meclizine HCl (Antivert) 25 mg Q8H PRN PO DIZZINESS 03/19/20 18:15 Olanzapine (ZyPREXA ZYDIS) 5 mg Q4HP PRN PO ANXIETY/AGITATION 03/19/20 16:15 03/28/20 21:10 Prazosin HCl (Minipress) 2 mg QHS PO 03/19/20 21:00 03/22/20 09:48 DC 03/21/20 20:28 Prazosin HCl (Minipress) 2 mg QHSP PRN PO insomnia 03/23/20 16:15 Quetiapine Fumarate (SEROquel) 200 mg QHS PO 03/25/20 21:00 03/28/20 20:10 Quetiapine Fumarate (SEROquel) 300 mg QHS PO 03/22/20 21:00 03/23/20 16:13 DC 03/22/20 20:28 Quetiapine Fumarate (SEROquel) 400 mg QHS PO 03/23/20 21:00 03/25/20 10:53 DC 03/24/20 20:30 Quetiapine Fumarate (SEROquel) 600 mg QHS PO 03/19/20 21:00 03/22/20 09:48 DC 03/21/20 20:28 Simvastatin (Zocor) 20 mg QHS PO 03/19/20 21:00 03/28/20 20:11 Trazodone HCl (Desyrel) 50 mg QHSP PRN PO INSOMNIA 03/19/20 16:15 03/19/20 18:09 DC Trazodone HCl (Desyrel) 100 mg QHS PO 03/19/20 21:00 03/22/20 10:13 DC 03/21/20 20:28 Trazodone HCl (Desyrel) 100 mg QHSP PRN PO sleep 03/22/20 10:15 03/28/20 20:10 Allergies Coded Allergies: NSAIDS (Non-Steroidal Anti-Inflamma (Verified Allergy, Mild, STOMACH UPSET, 03/14/20) ibuprofen (Verified Allergy, Mild, STOMACH UPSET, 03/14/20) naproxen (Verified Allergy, Mild, CAN TAKE ASPIRIN, 03/14/20) shellfish derived (Verified Allergy, Unknown, 03/14/20) haloperidol (Verified Adverse Reaction, Severe, RASH AND INABILITY TO RELAX MUSCLES. 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 Problem Text: unclear if clinically relevant at this time, patient presentation is highly inconsistent (3) PTSD (post-traumatic stress disorder) Status: Chronic Response to Treatment: Stable Problem Specific Plan: Monitor Clinically Problem Text: will continue to monitor, possibly related to long-term trauma (4) Discharge planning issues Problem Text: Pursuing long-term treatment Plan / VTE VTE Prophylaxis Ordered?: No Plan Diet: Continue Current Activity: Continue Current Anticipated Discharge: Other Anticipated D/C (Long-term admission pursued 9.27 conversion started) BERNABE MARSH DO Mar 29, 2020 09:28
[2020-03-29] MEDS: DOCUSATE SODIUM 100 MG CAP PO SCH (10:26)
[2020-03-29] MEDS: PILL CUTTER 1 EACH XX PRN (10:26)
[2020-03-29] MEDS: glipiZIDE (GLUCOTROL) 5 MG TAB PO SCH ×2 (10:27→17:27)
[2020-03-29] MEDS: lamoTRIgine 100MG TAB PO SCH (10:27)
[2020-03-29] MEDS: GABAPENTIN 300 MG CAP PO SCH ×3 (10:27→21:24)
[2020-03-29] MEDS: OLANZapine ORAL DISINTEGRATING TAB 5MG PO PRN (15:07)
[2020-03-29 16:05] VITALS: BP 136/89
[2020-03-29] MEDS ORDERED: QUEtiapine FUMARATE **XR** 200MG TABLET PO SCH (21:00)
[2020-03-29] MEDS: traZODone 100 MG TAB PO PRN (21:24)
[2020-03-29] MEDS: SIMVASTATIN 20 MG TAB PO SCH (21:24)
[2020-03-30] MEDS: glipiZIDE (GLUCOTROL) 5 MG TAB PO SCH ×2 (07:37→16:48)
[2020-03-30] MEDS: GABAPENTIN 300 MG CAP PO SCH ×3 (09:26→21:21)
[2020-03-30] MEDS: DOCUSATE SODIUM 100 MG CAP PO SCH (09:26)
[2020-03-30] MEDS: lamoTRIgine 100MG TAB PO SCH (09:28)
[2020-03-30] MEDS: PILL CUTTER 1 EACH XX PRN (09:28)
--- NOTE | 2020-03-30 09:40 | MHIPNPDOC ---
[facility] Progress Note Progress Note DOS: 03/30/2020 Patient met with today with nurse present for telehealth evaluation due to COVID Crisis Events Overnight: still yelling at various unseen people Group Attendance:: none Symptom changes (psych ROS): Affective: reports being "fine" Psychotic: denies, but of still appears somewhat paranoid Anxiety: [no changes] Staff Report: still quite psychotic and bizarre yelling at people for no reason Medical ROS: [Gen: -fevers, chills] [Cardio: -chest pain, palpations] [Ammon: -SOB, cough] [GI: -N,V,D,C] [Neuro: -tremors, msk stiffness] [Derm: -rash] MSE: Vitals: Below General: poor Speech: rapid Thought processes: tangential Thought content: psychotic delusions Abstract reasoning, and computation: impaired Description of associations: imparied Description of abnormal or psychotic thoughts: denies SAH I, but appears to be quite paranoid Judgment: poor Insight: poor Orientation: Alert and orientated 3 Recent and remote memory: Intact Attention span and concentration: impaired Fund of knowledge: limited Mood: "fine" Affect: flat, little reactivity Vital Signs Vital Signs Date Time Temp Pulse Resp B/P (MAP) Pulse Ox O2 Delivery O2 Flow Rate FiO2 03/30/20 08:10 Room Air 03/29/20 16:05 97.9 88 20 136/89 (105) 03/27/20 06:10 97 Laboratory Data 24H Labs Laboratory Tests 2 03/29/20 17:25: Bedside Glucose (Misc Panel) 194H Current Medications Current Medications Medications (Trade) Dose Ordered Sig/Wagner Route PRN Reason Start Time Stop Time Status Last Admin Dose Admin Acetaminophen (Tylenol Tab) 650 mg Q6HP PRN PO HEADACHE or DISCOMFORT 03/19/20 16:15 03/28/20 21:12 Al Hydrox/Mg Hydrox/Simethicone (Mylanta) 30 ml Q4HP PRN PO HEARTBURN/INDIGESTION 03/19/20 16:15 Chlorpromazine HCl (Thorazine) 50 mg BIDP PRN PO AGITATION 03/28/20 18:45 03/28/20 20:11 Clozapine (Clozaril) 12.5 mg QHS PO 03/22/20 21:00 03/24/20 10:05 DC 03/23/20 20:18 Clozapine (Clozaril) 25 mg BID PO 03/25/20 11:00 03/29/20 09:31 DC 03/28/20 20:10 Clozapine (Clozaril) 25 mg QHS PO 03/24/20 21:00 03/25/20 10:53 DC 03/24/20 20:29 Docusate Sodium (Colace) 100 mg DAILY PO 03/22/20 09:00 03/30/20 09:26 Duloxetine HCl (Cymbalta) 60 mg DAILY PO 03/20/20 09:00 03/22/20 09:48 DC 03/22/20 08:34 Gabapentin (Neurontin) 300 mg TID PO 03/19/20 21:00 03/30/20 09:26 Glipizide (Glucotrol) 5 mg BID@0730,1730 PO 03/25/20 17:30 03/30/20 07:37 Glipizide (Glucotrol) 5 mg DAILY@0800 PO 03/20/20 08:00 03/25/20 17:36 DC 03/25/20 08:59 Home Med (Med Rec Complete!) ASDIRECTED XX 03/19/20 16:00 03/19/20 15:58 DC Lamotrigine (LaMICtal) 150 mg DAILY PO 03/20/20 09:00 03/30/20 09:28 Magnesium Hydroxide (Milk Of Magnesia) 30 ml DAILYPRN PRN PO CONSTIPATION 03/19/20 16:15 Meclizine HCl (Antivert) 25 mg Q8H PRN PO DIZZINESS 03/19/20 18:15 Olanzapine (ZyPREXA ZYDIS) 5 mg Q4HP PRN PO ANXIETY/AGITATION 03/19/20 16:15 03/29/20 15:07 Prazosin HCl (Minipress) 2 mg QHS PO 03/19/20 21:00 03/22/20 09:48 DC 03/21/20 20:28 Prazosin HCl (Minipress) 2 mg QHSP PRN PO insomnia 03/23/20 16:15 Quetiapine Fumarate (SEROquel XR) 400 mg QHS PO 03/29/20 21:00 03/29/20 21:24 Quetiapine Fumarate (SEROquel) 200 mg QHS PO 03/25/20 21:00 03/29/20 10:30 DC 03/28/20 20:10 Quetiapine Fumarate (SEROquel) 300 mg QHS PO 03/22/20 21:00 03/23/20 16:13 DC 03/22/20 20:28 Quetiapine Fumarate (SEROquel) 400 mg QHS PO 03/23/20 21:00 03/25/20 10:53 DC 03/24/20 20:30 Quetiapine Fumarate (SEROquel) 600 mg QHS PO 03/19/20 21:00 03/22/20 09:48 DC 03/21/20 20:28 Simvastatin (Zocor) 20 mg QHS PO 03/19/20 21:00 03/29/20 21:24 Trazodone HCl (Desyrel) 50 mg QHSP PRN PO INSOMNIA 03/19/20 16:15 03/19/20 18:09 DC Trazodone HCl (Desyrel) 100 mg QHS PO 03/19/20 21:00 03/22/20 10:13 DC 03/21/20 20:28 Trazodone HCl (Desyrel) 100 mg QHSP PRN PO sleep 03/22/20 10:15 03/29/20 21:24 Allergies Coded Allergies: NSAIDS (Non-Steroidal Anti-Inflamma (Verified Allergy, Mild, STOMACH UPSET, 03/14/20) ibuprofen (Verified Allergy, Mild, STOMACH UPSET, 03/14/20) naproxen (Verified Allergy, Mild, CAN TAKE ASPIRIN, 03/14/20) shellfish derived (Verified Allergy, Unknown, 03/14/20) haloperidol (Verified Adverse Reaction, Severe, RASH AND INABILITY TO RELAX MUSCLES. 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 Problem Text: unclear if clinically relevant at this time, patient presentation is highly inconsistent (3) PTSD (post-traumatic stress disorder) Status: Chronic Response to Treatment: Stable Problem Specific Plan: Monitor Clinically Problem Text: will continue to monitor, possibly related to long-term trauma (4) Discharge planning issues Problem Text: Pursuing long-term treatment Plan / VTE VTE Prophylaxis Ordered?: No Plan Diet: Continue Current Activity: Continue Current Anticipated Discharge: Other Anticipated D/C (Long-term admission pursued 9.27 conversion started) BERNABE MARSH DO Mar 30, 2020 09:40
[2020-03-30] MEDS: DULoxetine 20 MG CAP (CYMBALTA) PO SCH (10:46)
[2020-03-30 16:13] VITALS: BP 140/76
[2020-03-30] MEDS ORDERED: QUEtiapine 300 MG XR TABLET(SEROQUEL XR) PO SCH (21:00)
[2020-03-30] MEDS: traZODone 100 MG TAB PO PRN (21:21)
[2020-03-30] MEDS: SIMVASTATIN 20 MG TAB PO SCH (21:21)
[2020-03-31 06:34] VITALS: BP 136/68
[2020-03-31 08:09] LABS: CLOZAPINE 1 106 ng/mL (350-650); CLOZAPINE 2 43 ng/mL (Not Estab.); CLOZAPINE 3 149 ng/mL (.)
[2020-03-31] MEDS: DOCUSATE SODIUM 100 MG CAP PO SCH (08:57)
[2020-03-31] MEDS: GABAPENTIN 300 MG CAP PO SCH (08:58)
[2020-03-31] MEDS: lamoTRIgine 100MG TAB PO SCH (08:58)
[2020-03-31] MEDS: DULoxetine 20 MG CAP (CYMBALTA) PO SCH (08:58)
[2020-03-31] MEDS: glipiZIDE (GLUCOTROL) 5 MG TAB PO SCH (08:58)
[2020-03-31] MEDS ORDERED: CHLOR25TA PO (11:55)
[2020-03-31] MEDS ORDERED: QUET300T53 PO (11:55)
--- NOTE | 2020-03-31 17:19 | MHDSPDOC ---
[facility] Discharge Summary Discharge Summary DATE OF ADMISSION: March 19, 2020 at 16:05 DATE OF DISCHARGE: Mar 31, 2020 at 13:51 DISCHARGE DIAGNOSES: 1. Schizoaffective disorder 2. PTSD REASON FOR ADMISSION: As per previous notes: " She is 54 years old. She has a long history of psychiatric difficulties, essentially psychosis with diff erential diagnosis schizoaffective disorder with major depressive disorder with psychotic features. Has had several inpatient hospitalizations, including since December of this year; please refer to previous summaries for details. In fact, she was here recently, 03/17/2020, and in fact discharged the same day, per the chart. Please Dr. Jones's summary for details related to the discharge, as well as the admission summary, which included the patient apparently making bizarre statements and claiming to have a clash with an individual at [facility] ([facility]). Has been staying at [facility] and apparently had gone to [facility], was discharged from there, and did not return to [facility]. She suggested she does not want to return there and was without her medicines for a couple of days and has not been sleeping well." CONSULTANTS INVOLVED: None TREATMENT AND PROGRESS ON THE UNIT : The patient has a long h/o hospitalizations and different diagnoses. The patient was started on Clozaril 25 mgs PO BID but had a poor response to it. She was started again on her usual Seroquel dose of 600 mgs PO QHS and she has felt better with that. She is not suicidal, not homicidal and not psychotic, she has not threatened or hurt anybody at [facility]. She is future orientated, she wants to go to [place] but in the meantime she is going to go to live with her brother who lives in [facility] and has offered to take her home with him. She says she is not going back to [facility] but she wants to f/u with therapy and she compromises to take her medications. HOSPITAL COURSE: As above DISCHARGE ASSESSMENT: The patient was not suicidal, not homicidal, not psychotic at the time of her discharge. She was not in imminent danger to self or others. She is future orientated, is optimistic and is compliant with her medications MENTAL STATUS EXAMINATION ON DISCHARGE: Patient is a 54-year old female, who is alert, cooperative, dressed in hospital clothes, good hygiene but a little unkempt Speech is spontaneous, fluent, normal r/t/v. Language skills are intact Thought processes including: linear and coherent. Thought content: Negative for SI/HI, negative for thought delusions Abstract reasoning, and computation: Fair Description of associations: intact. Description of abnormal or psychotic thoughts: denies SI/HI, thought delusions. Judgment: Improved Insight: Improving. Orientation to x 3. Recent and remote memory: fair. Attention span and concentration: good. Language: adequate. Fund of knowledge: average. Mood: "I'm OK". Affect: congruent with mood. MEDICATIONS ON DISCHARGE: Scheduled Duloxetine Hcl (Cymbalta) 60 Mg Capsule.dr, 60 MG PO DAILY, (Reported) Gabapentin (Gabapentin) 300 Mg Capsule, 300 MG PO TID, (Reported) Glipizide (Glipizide) 5 Mg Tablet, 5 MG PO DAILY, (Reported) Lamotrigine (Lamotrigine) 100 Mg Tablet, 150 MG PO DAILY, (Reported) Prazosin Hcl (Prazosin HCl) 2 Mg Capsule, 2 MG PO QHS, (Reported) Quetiapine Fumarate (Quetiapine Fumarate ER) 300 Mg Tab.er.24h, 600 MG PO QHS for psychosis/mood, #14 Simvastatin (Simvastatin) 20 Mg Tablet, 20 MG PO QHS, (Reported) Trazodone HCl (Trazodone HCl) 100 Mg Tablet, 100 MG PO QHS, (Reported) Scheduled PRN Chlorpromazine HCl (Chlorpromazine HCl) 25 Mg Tablet, 50 MG PO BIDP PRN for A GITATION, #28 Meclizine HCl (Meclizine HCl) 25 Mg Tablet, 25 MG PO Q8H PRN for DIZZINESS, (Reported) PLAN/FOLLOWUP ARRANGEMENTS: Follow Up Care Education Label * Chemical Dependency Appt1 * Additional information [facility] in hours Saturday - Saturday 8-[address] [place] [address] [facility] in hours Saturday -Saturday [phone] [place] [address] Follow Up Care Education Label * Medical * Medical Follow Up [facility] * Established With This Provider Yes * Therapist Dr. Burns * Date Apr 08, 2020 * Time 15:00 * Address of Clinic or Practice [address] [place] [address]. * Follow Up Care Education Label * Mental Health Appt 1 * Medical Follow Up [facility] * [facility] * Established With This Provider Yes * Therapist Alexandra Menjivar * Apr 05, 2020 * Time 11:00 * Address of Clinic or Practice [address] [place] [address]. * Follow Up Care Education Label * Mental Health Appt 2 * [facility] * Established With This Provider Yes * Therapist Kalyn xiong * Apr 06, 2020 * Time 14:00 * Address of Clinic or Practice [address] [place] [address] * The amount of time spent in the coordination of care for this patient was approximately 30 minutes. Vital Signs/I&Os Vital Signs Date Time Temp Pulse Resp B/P (MAP) Pulse Ox O2 Delivery O2 Flow Rate FiO2 03/31/20 09:05 Room Air 03/31/20 06:34 97.5 90 14 136/68 (90) 94 Laboratory Data Labs 24H Laboratory Tests 2 03/31/20 05:55: Bedside Glucose (Misc Panel) 164H Medications Scheduled Duloxetine Hcl (Cymbalta) 60 Mg Capsule.dr, 60 MG PO DAILY, (Reported) Gabapentin (Gabapentin) 300 Mg Capsule, 300 MG PO TID, (Reported) Glipizide (Glipizide) 5 Mg Tablet, 5 MG PO DAILY, (Reported) Lamotrigine (Lamotrigine) 100 Mg Tablet, 150 MG PO DAILY, (Reported) Prazosin Hcl (Prazosin HCl) 2 Mg Capsule, 2 MG PO QHS, (Reported) Quetiapine Fumarate (Quetiapine Fumarate ER) 300 Mg Tab.er.24h, 600 MG PO QHS for psychosis/mood, #14 Simvastatin (Simvastatin) 20 Mg Tablet, 20 MG PO QHS, (Reported) Trazodone HCl (Trazodone HCl) 100 Mg Tablet, 100 MG PO QHS, (Reported) Scheduled PRN Chlorpromazine HCl (Chlorpromazine HCl) 25 Mg Tablet, 50 MG PO BIDP PRN for AGITATION, #28 Meclizine HCl (Meclizine HCl) 25 Mg Tablet, 25 MG PO Q8H PRN for DIZZINESS, (Rep orted) Allergies Coded Allergies: NSAIDS (Non-Steroidal Anti-Inflamma (Verified Allergy, Mild, STOMACH UPSET, 03/14/20) ibuprofen (Verified Allergy, Mild, STOMACH UPSET, 03/14/20) naproxen (Verified Allergy, Mild, CAN TAKE ASPIRIN, 03/14/20) shellfish derived (Verified Allergy, Unknown, 03/14/20) haloperidol (Verified Adverse Reaction, Severe, RASH AND INABILITY TO RELAX MUSCLES. EPS., 03/14/20) VALENTIN MCGUIRE MD Mar 31, 2020 17:19
[2020-04-01] MEDS ORDERED: DULoxetine 20 MG CAP (CYMBALTA) PO SCH (09:00)
== END 2020-03-31 13:51 | disposition home or self-care (01) | DRG 750 ==
LOC: M ED 09:06 → M ED INP 16:05 → M PSY 18:01
PROVIDERS: ADMIT Psychiatry & Neurology Addiction Medicine; ATTEND Psychiatry & Neurology Addiction Medicine
DX: F25.9 Schizoaffective disorder, unspecified (principal); I50.9 Heart failure, unspecified; E11.9 Type 2 diabetes mellitus without complications; G40.909 Epilepsy, unspecified, not intractable, without status epilepticus; E66.01 Morbid (severe) obesity due to excess calories; F43.10 Post-traumatic stress disorder, unspecified; Z79.899 Other long term (current) drug therapy; Z88.6 Allergy status to analgesic agent; Z88.8 Allergy status to other drugs, medicaments and biological substances; Z91.013 Allergy to seafood; M79.7 Fibromyalgia; I25.10 Atherosclerotic heart disease of native coronary artery without angina pectoris; F10.10 Alcohol abuse, uncomplicated; Z95.2 Presence of prosthetic heart valve; M54.5 Low back pain; E78.5 Hyperlipidemia, unspecified

== ENCOUNTER → 2023-05-02 | Outpatient (CLI) | payer OTHER ==
[~2023-05-02] MED LIST changes: +ACET650T61 PO; -BENZ-52 PO; +BENZ1TAB5 PO; +CHLOR25TA PO; -CYMB60CA3 PO; +CYMB60CA4 PO; +GABA-282 PO; -GABA-843 PO; -OLAN10TA2 PO; +OLAN1TAB20 PO; +PANT40TA29 PO; -PANT40TA3 PO; -QUET1TAB10 PO; +QUET300T2 PO; +QUET300T93 PO; -QUET400T PO; +QUET400T2 PO; -TYLE650T35 PO
== END ==
LOC: M OUTALCOH 07:42
PROVIDERS: ATTEND Psychiatry & Neurology Psychiatry
DX: Z03.89 Encounter for observation for other suspected diseases and conditions ruled out (principal)

== ENCOUNTER 2024-02-27 20:52 | Inpatient (IN) | payer OTHER ==
[~2024-02-27] VITALS: Ht 162.6 cm; Wt 108.1 kg
[~2024-02-27 20:52] MED LIST changes: +DICL100G10 TOP; -DICL1GEL3 TOP; +GLIP5TAB17 PO; -GLIP5TAB8 PO; +MECL-209 PO; -MECL1TAB31 PO
[2024-02-27 22:34] LABS: HEMATOCRIT 39.3 % (36.0-47.0); HEMOGLOBIN 13.4 g/dl (12.0-15.5); MEAN CORPUSCULAR HEMOGLOBIN 28.2 pg (27.0-33.0); MEAN CORPUSCULAR HGB CONC 34.1 g/dl (32.0-36.5); MEAN CORPUSCULAR VOLUME 82.7 fl (80.0-96.0); PLATELET COUNT, AUTOMATED 338 10^3/uL (150-450); RED BLOOD COUNT 4.75 10^6/uL (4.00-5.40); WHITE BLOOD COUNT 8.3 10^3/uL (4.0-10.0)
[2024-02-27 23:01] LABS: ETHYL ALCOHOL (ETHANOL) < 0.003 % (0.000-0.010)
[2024-02-27 23:03] LABS: ALBUMIN 3.5 G/DL (3.2-5.2); ALKALINE PHOSPHATASE 111 U/L (46-116); ALT/SGPT 26 U/L (7.0-40); AST/SGOT 9 U/L (<34); BILIRUBIN,DIRECT < 0.1 MG/DL (<0.4); BILIRUBIN,TOTAL 0.3 MG/DL (0.3-1.2); BLOOD UREA NITROGEN 19 MG/DL (9-23); CALCIUM LEVEL 9.5 MG/DL (8.5-10.1); CARBON DIOXIDE LEVEL 28 MMOL/L (20-31); CHLORIDE LEVEL 106 MMOL/L (98-107); CREATININE FOR GFR 0.57 MG/DL (0.55-1.30); GLOMERULAR FILTRATION RATE > 60.0 (>51); GLUCOSE, FASTING 233 MG/DL (60-100); POTASSIUM SERUM 4.4 MMOL/L (3.5-5.1); SALICYLATE LEVEL < 3.0 MG/DL (<30); SODIUM LEVEL 139 MMOL/L (136-145)
[2024-02-27 23:05] LABS: THYROID STIMULATING HORMONE 2.398 uIU/ML (0.55-4.78)
[2024-02-28] MEDS ORDERED: INSU100V12 SC (00:44)
[2024-02-28] MEDS ORDERED: MAGN400T35 PO (00:44)
[2024-02-28] MEDS ORDERED: BUSP15TA47 PO (00:44)
[2024-02-28] MEDS ORDERED: HYDR-3363 PO (00:44)
[2024-02-28] MEDS ORDERED: TYLE650T38 PO (00:44)
[2024-02-28] MEDS ORDERED: FOLI1TAB11 PO (00:44)
[2024-02-28] MEDS ORDERED: ERGO500029 PO (00:44)
[2024-02-28] MEDS ORDERED: ATOR40TA75 PO (00:44)
[2024-02-28] MEDS ORDERED: NOVOINJ SC (00:44)
[2024-02-28] MEDS ORDERED: VITA100T28 PO (00:44)
[2024-02-28] MEDS ORDERED: ALBU8.5H INH (00:44)
[2024-02-28] MEDS ORDERED: SYNT50TA PO (00:44)
[2024-02-28] MEDS ORDERED: C 50TAB PO (00:44)
[2024-02-28] MEDS ORDERED: PRAZ1CAP46 PO (00:44)
[2024-02-28] MEDS ORDERED: KEPP1TAB2 PO (00:44)
[2024-02-28] MEDS ORDERED: HOME MED LIST COMPLETE! XX SCH (00:50)
[2024-02-28 01:22] LABS: AMPHETAMINES LEVEL URINE NEGATIVE (NEGATIVE); BARBITURATES URINE NEGATIVE (NEGATIVE); BENZODIAZEPINES URINE NEGATIVE (NEGATIVE); COCAINE METABOLITE URINE NEGATIVE (NEGATIVE)
[2024-02-28 01:23] LABS: CANNABINOIDS URINE NEGATIVE (NEGATIVE); METHADONE URINE NEGATIVE (NEGATIVE); OPIATES URINE NEGATIVE (NEGATIVE); PHENCYCLIDINE URINE NEGATIVE (NEGATIVE)
[2024-02-28] MEDS: levETIRAcetam 250MG TABLET (KEPPRA) PO SCH (09:51)
[2024-02-28] MEDS: GABAPENTIN 300 MG CAP PO SCH (09:51)
[2024-02-28] MEDS: MAGNESIUM OXIDE 400MG TAB (MAG-OX) PO SCH (09:52)
[2024-02-28] MEDS: FOLIC ACID 1MG TAB PO SCH (09:52)
[2024-02-28] MEDS: busPIRone 5 MG TAB PO SCH (09:52)
[2024-02-28] MEDS: THIAMINE 100 MG TAB PO SCH (09:52)
[2024-02-28] MEDS: ASCORBIC ACID 500 MG TAB PO SCH (09:52)
[2024-02-28] MEDS: LEVOTHYROXINE 50MCG TABLET (0.05MG) PO SCH (09:52)
[2024-02-28] MEDS: INSULIN LISPRO (NovoLOG) PER UNIT SC SCH ×2 (13:39→17:59)
[2024-02-28] MEDS ORDERED: traZODone 50 MG TAB PO PRN (13:50)
[2024-02-28] MEDS ORDERED: IBUPROFEN 400MG TAB PO PRN (13:50)
[2024-02-28 15:06] VITALS: BP 120/56; TEMP 96.9; O2SAT 96
[2024-02-28] MEDS ORDERED: GABAPENTIN 300 MG CAP PO SCH (16:00)
[2024-02-28] MEDS ORDERED: busPIRone 5 MG TAB PO SCH (16:00)
[2024-02-28 20:54] VITALS: BP 126/75
[2024-02-28] MEDS ORDERED: MAGNESIUM OXIDE 400MG TAB (MAG-OX) PO SCH (21:00)
[2024-02-28] MEDS ORDERED: levETIRAcetam 250MG TABLET (KEPPRA) PO SCH (21:00)
[2024-02-28] MEDS: LEVEMIR (INSULIN DETEMIR) 1 UNITS/0.01ML SC SCH (21:01)
[2024-02-28] MEDS: PRAZOSIN 1 MG CAP PO SCH (21:02)
[2024-02-28] MEDS: ATORVASTATIN 20 MG TAB PO SCH (21:02)
[2024-02-28] MEDS: traZODone 50 MG TAB PO SCH (21:03)
[2024-02-29 06:38] VITALS: BP 130/62; TEMP 97.3; O2SAT 97
[2024-02-29] MEDS ORDERED: THIAMINE 100 MG TAB PO SCH (09:00)
[2024-02-29] MEDS ORDERED: FOLIC ACID 1MG TAB PO SCH (09:00)
[2024-02-29] MEDS ORDERED: LEVOTHYROXINE 50MCG TABLET (0.05MG) PO SCH (09:00)
[2024-02-29] MEDS ORDERED: ASCORBIC ACID 500 MG TAB PO SCH (09:00)
[2024-02-29] MEDS: LEVOTHYROXINE 50MCG TABLET (0.05MG) PO SCH (09:42)
[2024-02-29] MEDS: INFLUENZA QUADRIVALENT PF VACCINE 0.5ML SYRINGE IM.IMMUN ONE (09:43)
[2024-02-29 16:54] VITALS: BP 121/84; TEMP 97.7; O2SAT 95
[2024-02-29] MEDS: INSULIN LISPRO (NovoLOG) PER UNIT SC SCH (21:00)
[2024-02-29] MEDS: ACETAMINOPHEN TAB 650MG DOSE (2X325MG) PO PRN (21:07)
[2024-02-29] MEDS: diphenhydrAMINE 25MG CAP PO PRN (22:46)
[2024-03-01 06:20] VITALS: BP 116/56; TEMP 97; O2SAT 96
[2024-03-01] MEDS: ESCITALOPRAM OXALATE 10 MG TAB (LEXAPRO) PO SCH (09:19)
[2024-03-01 16:20] VITALS: BP 124/86; TEMP 97.8; O2SAT 94
[2024-03-01] MEDS: metFORMIN (GLUCOPHAGE) 1000MG TABLET PO SCH (17:03)
[2024-03-01] MEDS: QUEtiapine 300MG XR TABLET (SEROQUEL XR) PO SCH (21:26)
[2024-03-02 06:18] VITALS: BP 125/61; TEMP 97.5; O2SAT 96
[2024-03-02 18:37] VITALS: BP 139/84; TEMP 97
[2024-03-03 06:36] VITALS: BP 109/55; TEMP 96.5; O2SAT 94
[2024-03-03 18:59] VITALS: BP 150/63; TEMP 97.8
[2024-03-03] MEDS: PALIPERIDONE 3MG ER TAB (INVEGA) PO SCH (21:49)
[2024-03-04 06:11] VITALS: BP 110/60; TEMP 96.7; O2SAT 95
[2024-03-04 07:26] LABS: CHOLESTEROL RISK RATIO 6.92 (<5); HDL CHOLESTEROL 29.9 MG/DL (>40); LDL CHOLESTEROL 122.9 MG/DL (<100); NON-HDL-C 177.1 MG/DL
[2024-03-04 18:18] VITALS: BP 131/89; TEMP 98.1
[2024-03-05 06:06] VITALS: BP 106/55; TEMP 97; O2SAT 94
[2024-03-05 13:37] VITALS: BP 137/72; TEMP 97.3; O2SAT 94
[2024-03-05 18:13] VITALS: BP 129/61; TEMP 97.6; O2SAT 94
[2024-03-05 21:17] VITALS: BP 119/57
[2024-03-06 06:52] VITALS: BP 115/53; TEMP 97.3; O2SAT 98
[2024-03-06 16:11] VITALS: BP 100/55; TEMP 97.9; O2SAT 93
[2024-03-07 06:24] VITALS: BP 120/58; TEMP 96.7; O2SAT 97
[2024-03-07 16:27] VITALS: BP 127/64; TEMP 97.8; O2SAT 98
[2024-03-08 06:23] VITALS: BP 143/63; TEMP 98.3; O2SAT 95
[2024-03-08 15:54] VITALS: BP 117/60; TEMP 97.4; O2SAT 94
[2024-03-09] MEDS: MOM 30ML SUSPENSION UDC PO PRN (05:42)
[2024-03-09 06:45] VITALS: BP 104/68; TEMP 97; O2SAT 95
[2024-03-09 18:00] VITALS: BP 136/68; TEMP 98.6
[2024-03-09] MEDS: traZODone 100 MG TAB PO SCH (20:50)
[2024-03-09] MEDS: MAALOX 30 ML SUSP *UDC PO PRN (21:00)
[2024-03-10 06:22] VITALS: BP 121/58; TEMP 97.3; O2SAT 95
[2024-03-10 18:32] VITALS: BP 124/72; TEMP 97.5
[2024-03-11 06:21] VITALS: BP 125/62; TEMP 96.3; O2SAT 95
[2024-03-11 09:01] VITALS: BP 117/60; TEMP 97.4; O2SAT 100
[2024-03-11 18:35] VITALS: BP 130/81; TEMP 97.5
[2024-03-12 05:55] VITALS: BP 131/60; TEMP 97; O2SAT 94
[2024-03-12 18:41] VITALS: BP 111/62; TEMP 98.8; O2SAT 100
[2024-03-13 06:29] VITALS: BP 116/55; TEMP 97.5; O2SAT 95
[2024-03-13 16:04] VITALS: BP 135/60; TEMP 98.2; O2SAT 94
[2024-03-14] MEDS ORDERED: DEXTROSE 50% 50ML SYRINGE IV PRN (00:15)
[2024-03-14] MEDS ORDERED: GLUCAGON INJ 1MG VIAL SC PRN (00:15)
[2024-03-14] MEDS ORDERED: GLUCOSE 4 GM CHEW PO PRN (00:15)
[2024-03-14 06:15] VITALS: BP 130/60; TEMP 97.6; O2SAT 95
[2024-03-14 08:13] LABS: BASO % 0.6 % (0.0-1.0); EOS # 0.2 10^3/uL (0.0-0.5); EOS % 2.8 % (0.0-3.0); HEMATOCRIT 37.5 % (36.0-47.0); HEMOGLOBIN 12.6 g/dl (12.0-15.5); LYMPH # 2.1 10^3/uL (1.5-5.0); MEAN CORPUSCULAR HGB CONC 33.6 g/dl (32.0-36.5); MEAN CORPUSCULAR VOLUME 83.3 fl (80.0-96.0); MONO # 0.4 10^3/uL (0.0-0.8); MONO % 5.2 % (2.0-8.0); NEUTROPHILS # 3.9 10^3/uL (1.5-8.5); NEUTROPHILS % 59.1 % (36.0-66.0); PLATELET COUNT, AUTOMATED 308 10^3/uL (150-450); WHITE BLOOD COUNT 6.7 10^3/uL (4.0-10.0)
[2024-03-14 08:38] LABS: ALBUMIN 3.4 G/DL (3.2-5.2); ALKALINE PHOSPHATASE 104 U/L (46-116); ALT/SGPT 14 U/L (7.0-40); AST/SGOT < 8 U/L (<34); BILIRUBIN,TOTAL 0.4 MG/DL (0.3-1.2); BLOOD UREA NITROGEN 16 MG/DL (9-23); CARBON DIOXIDE LEVEL 29 MMOL/L (20-31); CHLORIDE LEVEL 105 MMOL/L (98-107); CREATININE FOR GFR 0.63 MG/DL (0.55-1.30); GLOMERULAR FILTRATION RATE > 60.0 (>51); GLUCOSE, FASTING 123 MG/DL (60-100); MAGNESIUM LEVEL 1.8 MG/DL (1.8-2.4); POTASSIUM SERUM 4.1 MMOL/L (3.5-5.1); SODIUM LEVEL 140 MMOL/L (136-145); TOTAL PROTEIN 6.3 G/DL (5.7-8.2)
[2024-03-14 15:44] VITALS: BP 117/98; TEMP 97.5; O2SAT 95
[2024-03-14] MEDS: LEVEMIR (INSULIN DETEMIR) 1 UNITS/0.01ML SC SCH (20:43)
[2024-03-14] MEDS ORDERED: LEVEMIR (INSULIN DETEMIR) 1 UNITS/0.01ML SC SCH (21:00)
[2024-03-15 06:40] VITALS: BP 110/57; TEMP 97; O2SAT 97
[2024-03-15] MEDS ORDERED: ALBUTEROL 90 MCG/ACT 8GM HFA INHALER INH PRN (12:15)
[2024-03-15] MEDS: OMEPRAZOLE 20MG CAP PO SCH (12:19)
[2024-03-15 15:48] VITALS: BP 117/68; TEMP 97.9; O2SAT 98
[2024-03-15 16:57] LABS: APPEARANCE, URINE CLEAR (CLEAR); BACTERIA, URINE AUTO NEGATIVE (NEGATIVE); BILIRUBIN, URINE AUTO NEGATIVE (NEGATIVE); BLOOD, URINE BLOOD NEGATIVE (NEGATIVE); COLOR, URINE YELLOW (YELLOW); GLUCOSE, URINE (UA) AUTO NEGATIVE (NEGATIVE); KETONE, URINE AUTO NEGATIVE (NEGATIVE); LEUKOCYTE ESTERASE, URINE AUTO 2+ (NEGATIVE); NITRITE, URINE AUTO NEGATIVE (NEGATIVE); PROTEIN, URINE AUTO NEGATIVE (NEGATIVE); RBC, URINE AUTO 0 /HPF (0-3); SPECIFIC GRAVITY URINE AUTO 1.014 (1.002-1.035); SQUAMOUS EPITHELIAL CELL UR AU 1 /HPF (0-6); UROBILINOGEN, URINE AUTO 0.2 mg/dL (0.0-2.0); WBC, URINE AUTO 30 /HPF (0-3)
[2024-03-16 06:36] VITALS: BP 121/58; TEMP 97.2; O2SAT 95
[2024-03-16 17:42] VITALS: BP 80/58; TEMP 97.3
[2024-03-16 18:40] VITALS: BP 127/77; TEMP 98; O2SAT 96
[2024-03-17 06:15] VITALS: BP 100/59; TEMP 99.3; O2SAT 93
[2024-03-17 16:14] VITALS: BP 141/93; TEMP 97.7; O2SAT 94
[2024-03-17 21:13] VITALS: BP 119/59
[2024-03-17 21:19] VITALS: BP 119/59
[2024-03-18 06:17] VITALS: BP 130/58; TEMP 98.1; O2SAT 94
[2024-03-18] MEDS ORDERED: BUSP15TA47 PO (08:29)
[2024-03-18] MEDS ORDERED: TRAZ-257 PO (08:29)
[2024-03-18] MEDS ORDERED: GABA-282 PO (08:29)
[2024-03-18] MEDS ORDERED: PRAZ1CAP46 PO (08:29)
[2024-03-18] MEDS ORDERED: OMEP-173 PO (08:29)
[2024-03-18] MEDS ORDERED: PALI1TAB2 PO (08:29)
[2024-03-18] MEDS ORDERED: LEXA1TAB PO (08:32)
[2024-03-18] MEDS ORDERED: METF750T36 PO (08:32)
== END 2024-03-18 10:52 | disposition home or self-care (01) | DRG 750 ==
LOC: M ED 20:52 → M ED INP 02-28 13:48 → M PSY 02-28 15:27
PROVIDERS: ADMIT Student in an Organized Health Care Education/Training Program; ATTEND Student in an Organized Health Care Education/Training Program
DX: F25.1 Schizoaffective disorder, depressive type (principal); R45.851 Suicidal ideations; E11.40 Type 2 diabetes mellitus with diabetic neuropathy, unspecified; I11.0 Hypertensive heart disease with heart failure; D50.9 Iron deficiency anemia, unspecified; F10.10 Alcohol abuse, uncomplicated; I50.32 Chronic diastolic (congestive) heart failure; G40.909 Epilepsy, unspecified, not intractable, without status epilepticus; E66.01 Morbid (severe) obesity due to excess calories; M79.7 Fibromyalgia; M19.90 Unspecified osteoarthritis, unspecified site; Z88.8 Allergy status to other drugs, medicaments and biological substances; Z88.6 Allergy status to analgesic agent; Z91.013 Allergy to seafood; Z79.899 Other long term (current) drug therapy; Z79.4 Long term (current) use of insulin; Z68.39 Body mass index [BMI] 39.0-39.9, adult; G47.33 Obstructive sleep apnea (adult) (pediatric); I25.10 Atherosclerotic heart disease of native coronary artery without angina pectoris; I25.2 Old myocardial infarction; E03.9 Hypothyroidism, unspecified; E78.2 Mixed hyperlipidemia; F43.10 Post-traumatic stress disorder, unspecified; M54.59 Other low back pain

== ENCOUNTER 2024-03-21 13:42 | Emergency (ER) | payer OTHER ==
[~2024-03-21 13:42] MED LIST changes: +ALBU8.5H INH; +ATOR40TA75 PO; +BUSP15TA47 PO; +C 50TAB PO; +ERGO500029 PO; +FOLI1TAB11 PO; +HYDR-3363 PO; +INSU100V12 SC; +KEPP1TAB2 PO; +LEXA1TAB PO; +MAGN400T35 PO; +METF750T36 PO; +NOVOINJ SC; +OMEP-173 PO; +PALI1TAB2 PO; +PRAZ1CAP46 PO; +SYNT50TA PO; +TYLE650T38 PO; +VITA100T28 PO
[2024-03-21 15:18] LABS: BASO # 0.1 10^3/uL (0.0-0.2); BASO % 0.7 % (0.0-1.0); EOS # 0.2 10^3/uL (0.0-0.5); EOS % 2.3 % (0.0-3.0); HEMATOCRIT 39.7 % (36.0-47.0); HEMOGLOBIN 13.4 g/dl (12.0-15.5); LYMPH # 2.4 10^3/uL (1.5-5.0); LYMPH % 23.5 % (24.0-44.0); MEAN CORPUSCULAR HEMOGLOBIN 28.1 pg (27.0-33.0); MEAN CORPUSCULAR HGB CONC 33.8 g/dl (32.0-36.5); MEAN CORPUSCULAR VOLUME 83.2 fl (80.0-96.0); MONO # 0.6 10^3/uL (0.0-0.8); MONO % 5.8 % (2.0-8.0); NEUTROPHILS % 67.3 % (36.0-66.0); PLATELET COUNT, AUTOMATED 344 10^3/uL (150-450); RED BLOOD COUNT 4.77 10^6/uL (4.00-5.40); WHITE BLOOD COUNT 10.3 10^3/uL (4.0-10.0)
[2024-03-21 15:49] LABS: BLOOD UREA NITROGEN 16 MG/DL (9-23); CALCIUM LEVEL 9.9 MG/DL (8.5-10.1); CARBON DIOXIDE LEVEL 29 MMOL/L (20-31); CHLORIDE LEVEL 101 MMOL/L (98-107); GLOMERULAR FILTRATION RATE > 60.0 (>51); GLUCOSE, FASTING 174 MG/DL (60-100); POTASSIUM SERUM 4.6 MMOL/L (3.5-5.1); SODIUM LEVEL 137 MMOL/L (136-145)
[2024-03-21] MEDS ORDERED: CEFD1CAP9 PO (16:58)
[2024-03-21 17:10] VITALS: BP 142/74; TEMP 97.1; O2SAT 97
[2024-03-21] MEDS: CEFDINIR 300 MG CAP (OMNICEF) PO ONE (17:13)
== END 2024-03-21 17:31 | disposition home or self-care (01) ==
LOC: EDBD 13:42 → M ED 13:42
DX: N39.0 Urinary tract infection, site not specified (principal); E11.9 Type 2 diabetes mellitus without complications; I25.2 Old myocardial infarction; C53.9 Malignant neoplasm of cervix uteri, unspecified; J44.9 Chronic obstructive pulmonary disease, unspecified; Z86.73 Personal history of transient ischemic attack (TIA), and cerebral infarction without residual deficits; Z86.79 Personal history of other diseases of the circulatory system; Z88.6 Allergy status to analgesic agent; Z88.8 Allergy status to other drugs, medicaments and biological substances; Z91.013 Allergy to seafood; Z79.52 Long term (current) use of systemic steroids; Z79.4 Long term (current) use of insulin; Z79.899 Other long term (current) drug therapy

== ENCOUNTER 2024-03-25 13:49 | Inpatient (IN) | payer OTHER ==
[~2024-03-25] VITALS: Ht 162.6 cm; Wt 107.5 kg
[~2024-03-25 13:49] MED LIST changes: +CEFD1CAP9 PO
[2024-03-25 14:43] LABS: HEMATOCRIT 35.5 % (36.0-47.0); HEMOGLOBIN 12.1 g/dl (12.0-15.5); MEAN CORPUSCULAR HEMOGLOBIN 28.2 pg (27.0-33.0); MEAN CORPUSCULAR HGB CONC 34.1 g/dl (32.0-36.5); MEAN CORPUSCULAR VOLUME 82.8 fl (80.0-96.0); PLATELET COUNT, AUTOMATED 301 10^3/uL (150-450); RED BLOOD COUNT 4.29 10^6/uL (4.00-5.40); WHITE BLOOD COUNT 6.2 10^3/uL (4.0-10.0)
[2024-03-25 15:02] LABS: ETHYL ALCOHOL (ETHANOL) < 0.003 % (0.000-0.010)
[2024-03-25 15:03] LABS: ALBUMIN 3.4 G/DL (3.2-5.2); ALKALINE PHOSPHATASE 118 U/L (46-116); ALT/SGPT 32 U/L (7.0-40); AST/SGOT 13 U/L (<34); BILIRUBIN,DIRECT 0.1 MG/DL (<0.4); BILIRUBIN,TOTAL 0.5 MG/DL (0.3-1.2); BLOOD UREA NITROGEN 11 MG/DL (9-23); CALCIUM LEVEL 9.1 MG/DL (8.5-10.1); CARBON DIOXIDE LEVEL 27 MMOL/L (20-31); CHLORIDE LEVEL 105 MMOL/L (98-107); CREATININE FOR GFR 0.55 MG/DL (0.55-1.30); GLOMERULAR FILTRATION RATE > 60.0 (>51); GLUCOSE, FASTING 146 MG/DL (60-100); POTASSIUM SERUM 3.8 MMOL/L (3.5-5.1); SALICYLATE LEVEL < 3.0 MG/DL (<30); SODIUM LEVEL 139 MMOL/L (136-145); TOTAL PROTEIN 6.4 G/DL (5.7-8.2)
[2024-03-25 15:05] LABS: THYROID STIMULATING HORMONE 0.927 uIU/ML (0.55-4.78)
[2024-03-25 16:02] LABS: AMPHETAMINES LEVEL URINE NEGATIVE (NEGATIVE); BARBITURATES URINE NEGATIVE (NEGATIVE); BENZODIAZEPINES URINE NEGATIVE (NEGATIVE); CANNABINOIDS URINE NEGATIVE (NEGATIVE); COCAINE METABOLITE URINE NEGATIVE (NEGATIVE); METHADONE URINE NEGATIVE (NEGATIVE); OPIATES URINE NEGATIVE (NEGATIVE); PHENCYCLIDINE URINE NEGATIVE (NEGATIVE)
[2024-03-25] MEDS ORDERED: B-1100TA2 PO (17:35)
[2024-03-25] MEDS ORDERED: GABA-282 PO (17:35)
[2024-03-25] MEDS ORDERED: CEFD1CAP9 PO (17:35)
[2024-03-25] MEDS ORDERED: FERR324T21 PO (17:35)
[2024-03-25] MEDS ORDERED: HOME MED LIST COMPLETE! XX SCH (17:40)
[2024-03-25] MEDS ORDERED: ACETAMINOPHEN TAB 650MG DOSE (2X325MG) PO PRN (20:00)
[2024-03-25] MEDS ORDERED: ALBUTEROL 90 MCG/ACT 8GM HFA INHALER INH PRN (20:00)
[2024-03-25] MEDS: busPIRone 5 MG TAB PO SCH (20:40)
[2024-03-25] MEDS: GABAPENTIN 300 MG CAP PO SCH (20:40)
[2024-03-25] MEDS: metFORMIN (GLUCOPHAGE) 1000MG TABLET PO SCH (20:40)
[2024-03-25] MEDS: ATORVASTATIN 20 MG TAB PO SCH (20:40)
[2024-03-25] MEDS: PRAZOSIN 1 MG CAP PO SCH (20:40)
[2024-03-25] MEDS: levETIRAcetam 250MG TABLET (KEPPRA) PO SCH (20:40)
[2024-03-25] MEDS: CEFDINIR 300 MG CAP (OMNICEF) PO SCH (20:40)
[2024-03-25] MEDS: LEVEMIR (INSULIN DETEMIR) 1 UNITS/0.01ML SC SCH (20:41)
[2024-03-26] MEDS: LEVOTHYROXINE 50MCG TABLET (0.05MG) PO SCH (06:09)
[2024-03-26] MEDS: INSULIN LISPRO (NovoLOG) PER UNIT SC SCH ×3 (07:43→21:00)
[2024-03-26] MEDS: MAGNESIUM OXIDE 400MG TAB (MAG-OX) PO SCH ×2 (09:46→21:57)
[2024-03-26] MEDS: ASCORBIC ACID 500 MG TAB PO SCH (09:47)
[2024-03-26] MEDS: FOLIC ACID 1MG TAB PO SCH (09:47)
[2024-03-26] MEDS: THIAMINE 100 MG TAB PO SCH (09:47)
[2024-03-26] MEDS ORDERED: ACETAMINOPHEN 650MG ER TAB (TYLENOL ARTHRITIS) PO SCH (10:10)
[2024-03-26] MEDS ORDERED: ACETAMINOPHEN 650MG ER TAB (TYLENOL ARTHRITIS) PO PRN (10:14)
[2024-03-26] MEDS ORDERED: GLUCOSE 4 GM CHEW PO PRN (12:45)
[2024-03-26] MEDS ORDERED: DEXTROSE 50% 50ML SYRINGE IV PRN (12:45)
[2024-03-26] MEDS ORDERED: GLUCAGON INJ 1MG VIAL SC PRN (12:45)
[2024-03-26] MEDS ORDERED: MAALOX 30 ML SUSP *UDC PO PRN (12:45)
[2024-03-26] MEDS ORDERED: MOM 30ML SUSPENSION UDC PO PRN (12:45)
[2024-03-26 15:55] VITALS: BP 147/78; TEMP 97.8
[2024-03-26] MEDS: busPIRone 5 MG TAB PO SCH (16:35)
[2024-03-26] MEDS: GABAPENTIN 300 MG CAP PO SCH (16:35)
[2024-03-26] MEDS: levETIRAcetam 250MG TABLET (KEPPRA) PO SCH (21:57)
[2024-03-26] MEDS: ATORVASTATIN 20 MG TAB PO SCH (21:57)
[2024-03-26] MEDS: metFORMIN (GLUCOPHAGE) 1000MG TABLET PO SCH (21:57)
[2024-03-26] MEDS: PRAZOSIN 1 MG CAP PO SCH (22:09)
[2024-03-26] MEDS: LEVEMIR (INSULIN DETEMIR) 1 UNITS/0.01ML SC SCH (22:10)
[2024-03-27] MEDS: traZODone 50 MG TAB PO PRN (00:21)
[2024-03-27] MEDS: diphenhydrAMINE 25MG CAP PO PRN (00:21)
[2024-03-27] MEDS: LEVOTHYROXINE 50MCG TABLET (0.05MG) PO SCH (05:18)
[2024-03-27 06:31] VITALS: BP 118/54; TEMP 98.5; O2SAT 96
[2024-03-27] MEDS: FERROUS GLUCONATE 324 MG TAB PO SCH (08:58)
[2024-03-27] MEDS: THIAMINE 100 MG TAB PO SCH (08:59)
[2024-03-27] MEDS: FOLIC ACID 1MG TAB PO SCH (08:59)
[2024-03-27] MEDS: ASCORBIC ACID 500 MG TAB PO SCH (08:59)
[2024-03-27] MEDS: NICOTINE 14 MG/24 HR TRANSDERMAL TD SCH (09:00)
[2024-03-27] MEDS: ACETAMINOPHEN TAB 650MG DOSE (2X325MG) PO PRN (09:08)
[2024-03-27] MEDS: CALCIUM CARBONATE 500 MG CHEW U/D PO PRN (09:10)
[2024-03-27] MEDS: ESCITALOPRAM OXALATE 10 MG TAB (LEXAPRO) PO SCH (11:59)
[2024-03-27] MEDS: CHLORHEXIDINE GLUCONATE 0.12 % 15ML UDC (PERIDEX ORAL RINSE) MT SCH (13:42)
[2024-03-27] MEDS: ALBUTEROL 90 MCG/ACT 8GM HFA INHALER INH PRN (15:33)
[2024-03-27 15:52] VITALS: BP 115/60; TEMP 97.4; O2SAT 94
[2024-03-27] MEDS: metFORMIN (GLUCOPHAGE) 1000MG TABLET PO SCH (17:22)
[2024-03-27] MEDS ORDERED: LEVEMIR (INSULIN DETEMIR) 1 UNITS/0.01ML SC SCH (21:00)
[2024-03-27] MEDS: LEVEMIR (INSULIN DETEMIR) 1 UNITS/0.01ML SC SCH (21:37)
[2024-03-28 06:16] VITALS: BP 103/53; TEMP 97.2; O2SAT 93
[2024-03-28] MEDS: GABAPENTIN 300 MG CAP PO SCH (15:30)
[2024-03-28 18:00] VITALS: BP 135/60; TEMP 97.4; O2SAT 95
[2024-03-28] MEDS: traZODone 50 MG TAB PO PRN (22:05)
[2024-03-29 06:40] VITALS: BP 137/63; TEMP 96.6; O2SAT 95
[2024-03-29 18:00] VITALS: BP 136/87; TEMP 97.1; O2SAT 96
[2024-03-29 21:46] VITALS: BP 127/61
[2024-03-30 06:06] VITALS: BP 112/60; TEMP 98.5; O2SAT 96
[2024-03-30 18:53] VITALS: BP 129/84; TEMP 97.5
[2024-03-31 06:02] VITALS: BP 107/58; TEMP 96.8; O2SAT 93
[2024-03-31 16:32] VITALS: BP 147/87; TEMP 96.8
[2024-04-01 06:26] VITALS: BP 113/65; TEMP 98; O2SAT 95
[2024-04-01 18:25] VITALS: BP 132/71; TEMP 97.9
[2024-04-02 06:35] VITALS: BP 123/62; TEMP 97.1; O2SAT 95
[2024-04-02] MEDS: OLANZapine 5 MG TAB PO PRN (16:03)
[2024-04-02 17:18] VITALS: BP 116/78; TEMP 98.1; O2SAT 98
[2024-04-02 21:50] VITALS: BP 116/61
[2024-04-03 07:02] VITALS: BP 123/67; TEMP 98.4; O2SAT 94
[2024-04-03] MEDS: PALIPERIDONE PAL 234MG/1.5ML INJ (INVEGA)(FREE PSY INPT ONLY) IM ONE (10:57)
[2024-04-03 15:41] VITALS: BP 111/62; TEMP 97.6; O2SAT 97
[2024-04-04 06:40] VITALS: BP 107/55; TEMP 98.9; O2SAT 92
[2024-04-04 16:33] VITALS: BP 123/61; TEMP 97.5; O2SAT 97
[2024-04-05 06:18] VITALS: BP 115/53; TEMP 97.8; O2SAT 96
[2024-04-05 16:33] VITALS: BP 126/66; TEMP 97.8; O2SAT 96
[2024-04-05 21:24] VITALS: BP 137/89
[2024-04-06 06:26] VITALS: BP 117/57; TEMP 97.2; O2SAT 100
[2024-04-06] MEDS ORDERED: INSUDET SC (08:33)
[2024-04-06] MEDS ORDERED: TRAZ-189 PO (08:33)
== END 2024-04-06 11:49 | disposition home or self-care (01) | DRG 750 ==
LOC: M ED 13:49 → M ED INP 03-26 12:44 → M PSY 03-26 15:54
PROVIDERS: ADMIT Student in an Organized Health Care Education/Training Program; ATTEND Student in an Organized Health Care Education/Training Program
DX: F25.9 Schizoaffective disorder, unspecified (principal); E11.51 Type 2 diabetes mellitus with diabetic peripheral angiopathy without gangrene; R45.851 Suicidal ideations; I10 Essential (primary) hypertension; F12.90 Cannabis use, unspecified, uncomplicated; D50.9 Iron deficiency anemia, unspecified; E66.01 Morbid (severe) obesity due to excess calories; Z91.119 Patient's noncompliance with dietary regimen due to unspecified reason; G40.909 Epilepsy, unspecified, not intractable, without status epilepticus; F43.10 Post-traumatic stress disorder, unspecified; Z88.6 Allergy status to analgesic agent; Z88.8 Allergy status to other drugs, medicaments and biological substances; Z91.013 Allergy to seafood; Z79.899 Other long term (current) drug therapy; Z79.4 Long term (current) use of insulin; J44.9 Chronic obstructive pulmonary disease, unspecified; I25.10 Atherosclerotic heart disease of native coronary artery without angina pectoris; E03.9 Hypothyroidism, unspecified; E78.5 Hyperlipidemia, unspecified; Z95.2 Presence of prosthetic heart valve; K02.9 Dental caries, unspecified

== ENCOUNTER 2024-04-11 17:59 | Emergency (ER) | payer OTHER ==
[~2024-04-11] VITALS: Ht 162.6 cm; Wt 106.8 kg
[~2024-04-11 17:59] MED LIST changes: +B-1100TA2 PO; +FERR324T21 PO; +INSUDET SC; +TRAZ-189 PO
[2024-04-11 19:05] LABS: BASO # 0.1 10^3/uL (0.0-0.2); BASO % 0.7 % (0.0-1.0); EOS # 0.2 10^3/uL (0.0-0.5); EOS % 2.2 % (0.0-3.0); HEMATOCRIT 37.2 % (36.0-47.0); HEMOGLOBIN 12.4 g/dl (12.0-15.5); LYMPH # 2.3 10^3/uL (1.5-5.0); LYMPH % 24.7 % (24.0-44.0); MEAN CORPUSCULAR HGB CONC 33.3 g/dl (32.0-36.5); MONO # 0.5 10^3/uL (0.0-0.8); NEUTROPHILS # 6.3 10^3/uL (1.5-8.5); NEUTROPHILS % 67.1 % (36.0-66.0); PLATELET COUNT, AUTOMATED 342 10^3/uL (150-450); RED BLOOD COUNT 4.43 10^6/uL (4.00-5.40); WHITE BLOOD COUNT 9.4 10^3/uL (4.0-10.0)
[2024-04-11 19:11] LABS: LIPASE 24 U/L (12-53)
[2024-04-11 19:14] LABS: ALBUMIN 3.8 G/DL (3.2-5.2); ALKALINE PHOSPHATASE 114 U/L (46-116); ALT/SGPT 22 U/L (7.0-40); AST/SGOT < 8 U/L (<34); BILIRUBIN,DIRECT < 0.1 MG/DL (<0.4); BILIRUBIN,TOTAL 0.4 MG/DL (0.3-1.2); BLOOD UREA NITROGEN 16 MG/DL (9-23); CALCIUM LEVEL 9.8 MG/DL (8.5-10.1); CARBON DIOXIDE LEVEL 28 MMOL/L (20-31); CHLORIDE LEVEL 101 MMOL/L (98-107); CREATININE FOR GFR 0.56 MG/DL (0.55-1.30); GLOMERULAR FILTRATION RATE > 60.0 (>51); GLUCOSE, FASTING 188 MG/DL (60-100); POTASSIUM SERUM 3.6 MMOL/L (3.5-5.1); SODIUM LEVEL 136 MMOL/L (136-145)
[2024-04-11] MEDS ORDERED: ISOVUE-370 76% 100ML VIAL As Ordered ONE (19:34)
[2024-04-11 23:30] VITALS: BP 129/74; TEMP 97.8; O2SAT 93
== END 2024-04-11 23:30 | disposition home or self-care (01) ==
LOC: M ED 17:59 → EDBD 17:59 → M ED 23:30
DX: R19.7 Diarrhea, unspecified (principal); I45.81 Long QT syndrome; E11.9 Type 2 diabetes mellitus without complications; I10 Essential (primary) hypertension; I25.2 Old myocardial infarction; E78.5 Hyperlipidemia, unspecified; F41.9 Anxiety disorder, unspecified; F32.9 Major depressive disorder, single episode, unspecified; C53.9 Malignant neoplasm of cervix uteri, unspecified; F43.10 Post-traumatic stress disorder, unspecified; J44.9 Chronic obstructive pulmonary disease, unspecified; Z86.79 Personal history of other diseases of the circulatory system; Z86.73 Personal history of transient ischemic attack (TIA), and cerebral infarction without residual deficits; Z88.6 Allergy status to analgesic agent; Z91.013 Allergy to seafood; Z88.8 Allergy status to other drugs, medicaments and biological substances; Z79.52 Long term (current) use of systemic steroids; Z79.02 Long term (current) use of antithrombotics/antiplatelets; Z79.4 Long term (current) use of insulin; Z79.810 Long term (current) use of selective estrogen receptor modulators (SERMs); Z79.899 Other long term (current) drug therapy
CPT/HCPCS: 36415; 74177; 80048; 80076; 83690; 85025; 93005; 93041; 99285; Q9967

== ENCOUNTER 2024-04-30 14:06 | Emergency (ER) | payer OTHER ==
[~2024-04-30] VITALS: Ht 162.6 cm; Wt 108.5 kg
[2024-04-30 14:07] VITALS: BP 144/75; TEMP 97.8; O2SAT 96
[2024-04-30 16:36] LABS: BASO # 0.1 10^3/uL (0.0-0.2); BASO % 0.8 % (0.0-1.0); EOS # 0.2 10^3/uL (0.0-0.5); EOS % 2.6 % (0.0-3.0); HEMATOCRIT 36.1 % (36.0-47.0); HEMOGLOBIN 12.1 g/dl (12.0-15.5); LYMPH # 2.1 10^3/uL (1.5-5.0); LYMPH % 28.6 % (24.0-44.0); MEAN CORPUSCULAR HEMOGLOBIN 28.1 pg (27.0-33.0); MEAN CORPUSCULAR HGB CONC 33.5 g/dl (32.0-36.5); MONO # 0.4 10^3/uL (0.0-0.8); MONO % 5.7 % (2.0-8.0); NEUTROPHILS # 4.4 10^3/uL (1.5-8.5); PLATELET COUNT, AUTOMATED 313 10^3/uL (150-450); WHITE BLOOD COUNT 7.2 10^3/uL (4.0-10.0)
[2024-04-30 17:07] LABS: ALBUMIN 3.8 G/DL (3.2-5.2); ALKALINE PHOSPHATASE 116 U/L (46-116); ALT/SGPT 30 U/L (7.0-40); AST/SGOT 14 U/L (<34); BILIRUBIN,TOTAL 0.3 MG/DL (0.3-1.2); BLOOD UREA NITROGEN 12 MG/DL (9-23); CALCIUM LEVEL 9.1 MG/DL (8.5-10.1); CARBON DIOXIDE LEVEL 30 MMOL/L (20-31); CHLORIDE LEVEL 101 MMOL/L (98-107); GLOMERULAR FILTRATION RATE > 60.0 (>51); GLUCOSE, FASTING 190 MG/DL (60-100); POTASSIUM SERUM 3.9 MMOL/L (3.5-5.1); SODIUM LEVEL 136 MMOL/L (136-145); TOTAL PROTEIN 6.8 G/DL (5.7-8.2)
[2024-04-30 17:14] LABS: HEPATITIS B SURFACE ANTIBODY NEGATIVE (POSITIVE)
[2024-04-30 17:26] LABS: HEPATITIS B SURFACE ANTIGEN NEGATIVE (NEGATIVE)
[2024-04-30 17:39] LABS: HIV 1&2 SCREEN NEGATIVE (NEGATIVE)
[2024-04-30] MEDS ORDERED: EXPOSURE KIT-ADULT 7 DAY SUPPLY PO ONE (17:45)
[2024-04-30 17:47] LABS: HEPATITIS C VIRUS ABY INDEX < 0.02 INDEX (<0.8)
[2024-04-30] MEDS ORDERED: RALT40TA PO (17:53)
[2024-04-30] MEDS ORDERED: EMTR1TAB16 PO (17:53)
[2024-04-30] MEDS: ACETAMINOPHEN 500 MG TAB PO ONE (18:32)
[2024-04-30] MEDS: ONDANSETRON 4MG ORAL DISINTEGRATING TAB PO ONE (22:13)
[2024-04-30] MEDS: LIDOCAINE 1% SDV 5ML VIAL DILUENT ONE (22:29)
[2024-04-30] MEDS: cefTRIAXone 500MG VIAL IM ONE (22:30)
[2024-04-30] MEDS: metroNIDAZOLE (FLAGYL) 500MG TABLET PO ONE (22:32)
[2024-04-30] MEDS: AZITHROMYCIN 250MG TABLET PO ONE (22:33)
[2024-04-30] MEDS: HEPATITIS B VACCINE 20MCG/ML 1ML SYRINGE (ADULT DOSE) IM.IMMUN ONE (22:43)
[2024-04-30] MEDS: RALTEGRAVIR 400 MG TAB (ISENTRESS) PO ONE (22:45)
[2024-04-30] MEDS: EMTRICITABINE/TENOFOVIR 200MG/300MG TABLET PO ONE (22:45)
[2024-04-30] MEDS: HEPATITIS B IMMUNE GLOBULIN 5ML INJ IM.IMMUN ONE (22:46)
[2024-04-30] MEDS ORDERED: ONDA-282 PO (23:04)
[2024-05-01] MEDS ORDERED: RALTEGRAVIR 400 MG TAB (ISENTRESS) PO SCH
[2024-05-01] MEDS ORDERED: EMTRICITABINE/TENOFOVIR 200MG/300MG TABLET PO SCH
== END 2024-05-01 00:56 | disposition home or self-care (01) ==
LOC: M ED 14:06
DX: T74.21XA Adult sexual abuse, confirmed, initial encounter (principal); I10 Essential (primary) hypertension; G47.33 Obstructive sleep apnea (adult) (pediatric); E11.9 Type 2 diabetes mellitus without complications; E03.9 Hypothyroidism, unspecified; J44.9 Chronic obstructive pulmonary disease, unspecified; Z86.79 Personal history of other diseases of the circulatory system; Z88.6 Allergy status to analgesic agent; Z88.8 Allergy status to other drugs, medicaments and biological substances; Z91.013 Allergy to seafood; Z86.73 Personal history of transient ischemic attack (TIA), and cerebral infarction without residual deficits; Z79.02 Long term (current) use of antithrombotics/antiplatelets; Z79.52 Long term (current) use of systemic steroids; Z79.4 Long term (current) use of insulin; Z79.83 Long term (current) use of bisphosphonates; Z79.899 Other long term (current) drug therapy; Z23 Encounter for immunization
CPT/HCPCS: 80053; 85025; 86706; 86780; 86803; 87340; 87389; 90371; 90471; 90746; 96372; 99291; J0696